=== PATIENT | female | born 1940 | race Caucasian/White ===

== ENCOUNTER 2022-06-08 05:56 | Observation (INO) ==
--- NOTE | 2022-05-10 14:31 | PAT Medication Instructions ---
Medication Instructions Date of Service May 10, 2022 Home Medications amlodipine 5 mg tablet 5 mg PO QAM apixaban 5 mg tablet (Eliquis) 5 mg PO BID aspirin 81 mg tablet,delayed release (Adult Low Dose Aspirin) 81 mg PO HS esomeprazole magnesium 20 mg capsule,delayed release (Nexium) 20 mg PO QAM levothyroxine 25 mcg capsule 25 mcg PO QAM losartan 50 mg tablet 50 mg PO QAM multivitamin 1 tab PO QAM omega 8-xia-vvy-fish oil 1,000 mg (120 mg-180 mg) capsule (Fish Oil) 1 cap PO BID rosuvastatin 5 mg tablet (Crestor) 5 mg PO HS solifenacin 10 mg tablet (Vesicare) 10 mg PO QAM alendronate 70 mg tablet (Fosamax) 70 mg PO WK buspirone 5 mg tablet 5 mg PO BID PRN anxiety sotalol 80 mg tablet 40 mg PO BID Continue as directed alendronate 70 mg tablet (Fosamax) 70 mg PO WK (but do not take morning of surgery) ASK your prescriber and surgeon apixaban 5 mg tablet (Eliquis) 5 mg PO BID (in order for spinal anesthesia, Apixaban/Eliquis needs to be stopped 72 hours/3 days before surgery. Please check if okay with doctor that prescribes this to you) STOP taking 2 weeks before surgery (or as soon as possible if surgery is within 2 weeks) omega 7-wlq-hgy-fish oil 1,000 mg (120 mg-180 mg) capsule (Fish Oil) 1 cap PO BID DO NOT take the morning of surgery losartan 50 mg tablet 50 mg PO QAM multivitamin 1 tab PO QAM solifenacin 10 mg tablet (Vesicare) 10 mg PO QAM Take morning of surgery With a small sip of water, OTHERWISE NOTHING TO EAT OR DRINK AFTER MIDNIGHT: amlodipine 5 mg tablet 5 mg PO QAM esomeprazole magnesium 20 mg capsule,delayed release (Nexium) 20 mg PO QAM levothyroxine 25 mcg capsule 25 mcg PO QAM buspirone 5 mg tablet 5 mg PO BID PRN anxiety (if needed) sotalol 80 mg tablet 40 mg PO BID Take evening before surgery aspirin 81 mg tablet,delayed release (Adult Low Dose Aspirin) 81 mg PO HS (continue as normal unless told otherwise by surgeon) rosuvastatin 5 mg tablet (Crestor) 5 mg PO HS buspirone 5 mg tablet 5 mg PO BID PRN anxiety (if needed) sotalol 80 mg tablet 40 mg PO BID Other Notes If you have any questions please call us at [phone] or [phone] or [phone] or [phone]
--- NOTE | 2022-05-13 12:57 | Anesthesiology Consultation ---
Date of Service May 13, 2022 Assessment & Plan (1) Encounter for pre-operative examination: - Case discussed with Dr. Wilson who advised patient to have cardiology pre-op evaluation and updated echocardiogram. Form completed, awaiting cardiology clearance. - bolus order pending cardio pre-op eval and updated echo. - check BSG am DOS. - anticoagulation instructions: in order for spinal or epidural anesthesia, Eliquis needs to be stopped 72 hours/3 days before surgery. Pt and daughter advised to contact prescriber if acceptable interval, they will notify office if not acceptable per cardiology to then undergo general anesthesia. - left upper arm restriction. - COVID screening: Per assessment on 05/13/2022: Travel screen negative, no known COVID-19 positive contacts or current COVID-19 related symptoms in past 2 weeks. Pt vaccinated. Surgeon arranging preop COVID testing, scheduled 06/04/2022. Awaiting results. Chart Review Chart Review: Pending: Refer to Additional Notes / Consult section and Patient seen in Pre Admission Testing Teaching & Discussion Pre-Anesthesia Teaching/Discussion Notes: Instructed NPO after midnight before surgery, except medications with 15 cc of water. Medication instructions provided according to the PAT guidelines. History Surgery Operation Date: 06/08/22 07:00 Proposed Procedures p Left Total Knee Arthroplasty - Tj Juan, Height/Weight Height: 5 ft 4 in Weight: 91.2 kg Allergies Allergy/AdvReac Type Severity Reaction Status Date / Time No Known Allergies Allergy Verified 05/10/22 10:47 Medications Home Medications Medication Instructions Recorded Confirmed Last Taken amlodipine 5 mg tablet 5 mg PO QAM 03/31/22 05/10/22 Unknown apixaban 5 mg tablet (Eliquis) 5 mg PO BID 03/31/22 05/10/22 Unknown aspirin 81 mg tablet,delayed 81 mg PO HS 03/31/22 05/10/22 Unknown release (Adult Low Dose Aspirin) esomeprazole magnesium 20 mg 20 mg PO QAM 03/31/22 05/10/22 Unknown capsule,delayed release (Nexium) levothyroxine 25 mcg capsule 25 mcg PO QAM 03/31/22 05/10/22 Unknown losartan 50 mg tablet 50 mg PO BID 03/31/22 05/13/22 Unknown multivitamin 1 tab PO QAM 03/31/22 05/10/22 Unknown omega 5-wix-cmw-fish oil 1,000 mg 1 cap PO BID 03/31/22 05/10/22 Unknown (120 mg-180 mg) capsule (Fish Oil) rosuvastatin 5 mg tablet (Crestor) 5 mg PO HS 03/31/22 05/10/22 Unknown solifenacin 10 mg tablet (Vesicare) 10 mg PO QAM 03/31/22 05/10/22 Unknown alendronate 70 mg tablet (Fosamax) 70 mg PO WK 05/10/22 05/10/22 Unknown buspirone 5 mg tablet 5 mg PO BID PRN anxiety 05/10/22 05/10/22 Unknown sotalol 80 mg tablet 40 mg PO BID 05/10/22 05/10/22 Unknown furosemide 20 mg PO PRN Edema 05/13/22 Unknown Past Medical History Medical History (Updated 05/13/22 @ 15:50 by Corrine Ureña PA-C) A-fib hx cardioversion - currently managed with medication and eliquis. follows with Dr Fierro ([facility]/[place]) Anxiety occasionally Breast cancer (~2001) left breast cancer (lumpectomy) CAD (coronary artery disease) s/p CABG x 1, 2 Cx stents (2009, 2012) with residual disease; per 2012 cath: left main normal. LAD: mid 100% occlusion, diagonal branch 40%, WALKER graft to LAD patent. Cx proximal 85%, mid 10% and stenting site patent-stent placed to Cx during cath. RCA: mid long 95% and distal 100%. CKD (chronic kidney disease), stage III GERD (gastroesophageal reflux disease) controlled, stable per pt High cholesterol History of blood transfusion 2001 History of cardioversion ~ at [facility]. Hypothyroid Labile hypertension occasionally symptomatic with hypertension experiencing severe MURILLO/lightheadedness, other times hypotensive per daughter-diastolic at times below 50 Limb alert care status pt states has had BP/IVs in LUE since L breast surgery but has chronic swelling in that arm Mitral valve prolapse pt unsure Myocardial Infarction 11/2001 treated with open heart surgery [place] anticoagulant therapy Peripheral arterial disease s/p stent placement Peripheral edema suspected LUE lymphedema per pt and daughter, chronic peripheral upper and lower extremity edema on prn diuretic therapy; denies change or worsening this week Prediabetes Patient denies h/o stroke, seizures, heart failure, or blood clots. Exercise / Class Metabolic Activity III < 4 Walking/Shop/Light housework (denies CP or SOB with 1 FOS) Past Family History Family History Other Heart disease No family history of adverse response to anesthesia Past Surgical History Surgical History (Updated 05/13/22 @ 13:44 by Corrine Ureña PA-C) History of cardiac cath ~15-20 years ago History of colonoscopy History of coronary artery bypass graft x 1 History of right-sided carotid endarterectomy History of surgical removal of left nipple Hx of heart artery stent (~2003) (between 15 and 20 years ago) total x2 stents at [facility] Hx of lumpectomy left Past Anesthesia History No Hx of Anesthesia Complications and No Family Hx of Anesthesia Complications History of PONV No Hx of PONV and No Hx of Motion Sickness Social History Smoking Status: Former smoker Do You Dip or Chew Tobacco: No Smoking End Date: 2001 Hx Alcohol Use: Yes Alcohol type: wine alcohol intake frequency: holidays/special occasions only Hx Substance Use: No substance use type: does not use Review of Systems Snoring, denies witnessed apneas. Occasional dizziness/lightheadedness when hypertensive. Denies syncope. Patient denies chest pain, shortness of breath, dyspnea on exertion, fever, chills, cough, wheezing, or palpitations. Physical Exam Vital Signs Vitals BP 145/70 P 55 TEMP 98.7 SP02 96% on RA RESP 17 Physical Full cervical extension range of motion without pain TMD 3.5 finger breadths Mallampati Score 2 Dentition: intact, several caps/crowns-none in front; denies chipped or loose teeth, implants or bridges Lungs: normal respiratory effort. Clear throughout to auscultation, no adventitious breath sounds Cardiac: regular rate and rhythm, 4/6 systolic murmur noted Carotid arteries: negative bruit bilat Lab Results Anesthesia Preop Results Results Anesthesia Widget: WBC 7.71 K/ul (4.8-10.8) 05/13/22 Hgb 11.6 g/dl (12.0-16.0) L 05/13/22 Hct 35.6 % (34.1-44.9) 05/13/22 Plt 314 K/uL (130-400) 05/13/22 Na 139 mmol/L (136-145) 05/13/22 K 4.6 mmol/L (3.5-5.1) 05/13/22 Cl 108 mmol/L (98-107) H 05/13/22 CO2 24 mmol/L (21-32) 05/13/22 BUN 35 mg/dl (6-23) H 05/13/22 Creat 1.15 mg/dl (0.6-1.2) 05/13/22 Glucose Level 122 mg/dl (70-99(Fasting)) H 05/13/22 PT 11.0 Seconds (9.0-12.0) 05/13/22 PTT 27.5 Seconds (21.0-31.0) 05/13/22 INR 1.0 (0.9-1.1) 05/13/22 Blood Type A Positive 05/13/22 Antibody Screen NEGATIVE 05/13/22 Testing Electrocardiogram Date: 05/13/22 Sinus rhythm with 1st degree AV block, rate 62 bpm Poor R wave progression, consider anterior NE vs lead placement vs LVH Chest X-Ray Date: 05/13/22 Left axillary surgical clips are noted. There are median sternotomy wires and mediastinal surgical clips. There is moderate cardiomegaly without evidence for pulmonary edema. No consolidation to suggest pneumonia. There is no pneumothorax or pleural effusion. IMPRESSION: No acute cardiopulmonary findings. Cardiomegaly. Echocardiogram Date: 02/25/20 EF 65% Mildly dilated LA Mild aortic stenosis Mild aortic insufficiency Mild cLVH Stress Test Date: 01/17/19 normal myocardial perfusion images without evidence for pharmacologically induced ischemia normal LV wall motion and thickening EF 69%
--- NOTE | 2022-06-02 14:49 | Communication Note ---
Date of Service: June 02, 2022 - Pt's daughter contacted office with questions regarding echocardiogram, neuraxial anesthesia vs GA. This was discussed in detail including further asses sment of aortic valve stenosis. Cardiology office was also contacted and advised next available echocardiogram scheduling is in July. [facility] requesting patient have appt, I also contacted their clinic prior to appt to notify echocardiogram order was the requested evaluation. Pt's daughter denied concerns with echocardiogram being obtained prior to surgery. Cardiology advised would send information to [facility] for earlier scheduling however prior authorization had not yet been initiated and pt's daughter planned to keep appointment with [facility] PCP today 06/02/22 to pursue echo order through their office. Pt's daughters Isamar and Bere assisting pt and once echo report is completed this will be reviewed and copy forwarded to cardiology. Echocardiogram ordered by [facility] PCP at today's appt.
[2022-06-08] MEDS ORDERED: ceFAZolin 2000MG 2,000 MG/15 ML SYR IV SCH (06:00)
[2022-06-08] MEDS ORDERED: GABAPENTIN 300 MG CAP PO SCH (06:00)
[2022-06-08] MEDS ORDERED: Ketorolac (*for OR use only*) 30 MG, dexAMETHasone 4 MG, KETAMINE HCL (**OR use only) 1... INFIL SCH (06:00)
[2022-06-08] MEDS ORDERED: TRANEXAMIC ACID 1,000 MG **IV Intra-op IV SCH (06:00)
[2022-06-08] MEDS ORDERED: LR 15ML/HR IV SCH (06:00)
[2022-06-08] MEDS ORDERED: dexAMETHasone 4 MG TAB PO SCH (06:00)
[2022-06-08] MEDS ORDERED: ACETAMINOPHEN 500 MG TAB PO SCH (06:00)
[2022-06-08] MEDS ORDERED: TRANEXAMIC ACID 1,000 MG **IV Pre-op IV SCH (06:00)
[2022-06-08] MEDS ORDERED: LR 60ML/HR IV SCH (06:00)
[2022-06-08] MEDS ORDERED: ROPIVACAINE 0.5% 5 MG/ML 30 ML VIAL ONE (06:27)
[2022-06-08] MEDS ORDERED: BUPIVACAINE 0.5 % 5 MG/1 ML PF 10ML VIAL ONE (06:27)
--- NOTE | 2022-06-08 06:44 | History & Physical Report ---
Date of Service June 08, 2022 Assessment & Plan (1) Osteoarthritis of left knee: We will proceed with a left total knee arthroplasty. Postoperatively she will be started on Eliquis for DVT prophylaxis and kept overnight in the hospital for postoperative medical management. She she plans to have the hospital set up home health for discharge. History of Present Illness Chief Complaint: Osteoarthritis of the left knee. Primary Care Provider: Ynes Ricardo DO Zavala is a pleasant 81-year-old female who has been dealing with chronic bilateral knee pain. She has severe valgus deformity. She uses a walker because of her knees. She has been dealing with pain for years. She underwent an open heart surgery in 2001. She was told that she could not have knee replacement surgeries. She lived with the pain for 20 years. Her heart has been stable. She is on Eliquis and sotalol. She is starting to become less and less independent because of her knees. Recent x-rays have shown advanced osteoarthritis of her knee. After failing conservative treatment, she has elected proceed with a left total knee arthroplasty. . Allergies Allergy/AdvReac Type Severity Reaction Status Date / Time No Known Allergies Allergy Verified 06/08/22 06:13 Home Medications Medication Instructions Recorded Confirmed Type amlodipine 5 mg tablet 5 mg PO QAM 03/31/22 06/08/22 History apixaban 5 mg tablet (Eliquis) 5 mg PO BID 03/31/22 06/08/22 History aspirin 81 mg tablet,delayed 81 mg PO HS 03/31/22 06/08/22 History release (Adult Low Dose Aspirin) esomeprazole magnesium 20 mg 20 mg PO QAM 03/31/22 06/08/22 History capsule,delayed release (Nexium) levothyroxine 25 mcg capsule 25 mcg PO QAM 03/31/22 06/08/22 History losartan 50 mg tablet 50 mg PO BID 03/31/22 06/08/22 History multivitamin 1 tab PO QAM 03/31/22 06/08/22 History omega 4-zrh-mfg-fish oil 1,000 mg 1 cap PO BID 03/31/22 06/08/22 History (120 mg-180 mg) capsule (Fish Oil) rosuvastatin 5 mg tablet (Crestor) 5 mg PO HS 03/31/22 06/08/22 History solifenacin 10 mg tablet (Vesicare) 10 mg PO QAM 03/31/22 06/08/22 History alendronate 70 mg tablet (Fosamax) 70 mg PO WK 05/10/22 06/08/22 History buspirone 5 mg tablet 5 mg PO BID PRN anxiety 05/10/22 06/08/22 History sotalol 80 mg tablet 40 mg PO BID 05/10/22 06/08/22 History furosemide 20 mg PO DAILY PRN Edema 05/13/22 06/08/22 History Past Med/Surg History Medical History A-fib hx cardioversion - currently managed with medication and eliquis. follows with Dr Fierro ([facility]/[place]) Anxiety occasionally Breast cancer (~2001) left breast cancer (lumpectomy) CAD (coronary artery disease) s/p CABG x 1, 2 Cx stents (2009, 2012) with residual disease; per 2012 cath: left main normal. LAD: mid 100% occlusion, diagonal branch 40%, WALKER graft to LAD patent. Cx proximal 85%, mid 10% and stenting site patent-stent placed to Cx during cath. RCA: mid long 95% and distal 100%. Carotid artery stenosis s/p right carotid endarterectomy CKD (chronic kidney disease), stage III GERD (gastroesophageal reflux disease) controlled, stable per pt High cholesterol History of blood transfusion 2001 History of cardioversion ~ at [facility]. Hypothyroid Labile hypertension occasionally symptomatic with hypertension experiencing severe MURILLO/lightheadedness, other times hypotensive per daughter-diastolic at times below 50 Limb alert care status pt states has had BP/IVs in LUE since L breast surgery but has chronic swell ing in that arm Mitral valve prolapse pt unsure Myocardial Infarction 11/2001 treated with open heart surgery [place] anticoagulant therapy Peripheral arterial disease s/p stent placement Peripheral edema suspected LUE lymphedema per pt and daughter, chronic peripheral upper and lower extremity edema on prn diuretic therapy; denies change or worsening this week Prediabetes Surgical History History of cardiac cath ~15-20 years ago History of colonoscopy History of coronary artery bypass graft x 1 History of right-sided carotid endarterectomy History of surgical removal of left nipple Hx of heart artery stent (~2003) (between 15 and 20 years ago) total x2 stents at [facility] Hx of lumpectomy left Family History Other Heart disease No family history of adverse response to anesthesia Social History Smoking Status: Former smoker Smoking End Date: 2001; Second Hand Exposure: No; Do You Dip or Chew Tobacco: No; Tobacco Cessation Education Requested by Patient: No Hx Alcohol Use: Yes Alcohol type: wine Hx Substance Use: No Preferred Language: Sami Communication Ability: Effective Automation Qtp Tester Required: No Beliefs That Will Affect Care: None marital status: / Current Living Situation: Alone Other Information That Helps Us Care for You: No Feels Safe at Home: Yes Safety Concerns: Feels Safe At This Time Assistive Devices: Brace/Splint/Immobilizer, Glasses and Walker Review of Systems All systems reviewed & are unremarkable except as noted in HPI & below. Physical Exam On physical examination of the left knee, she does have a slight valgus deformity. She has range of motion from 5 to 115 degrees. She has no gross instability. She has pain over the distal femoral condyles.. Constitutional WD/WN, vitals as above Eyes PERRL, conjunctivae normal, anicteric sclerae ENMT external ear and nose normal, oropharynx normal Neck trachea midline, no thyromegaly Respiratory normal respiratory effort, lungs clear to auscultation Cardiovascular RRR, no murmur, no edema Gastrointestinal (Abdomen) normal bowel sounds, soft, nontender, no hepatosplenomegaly Skin no rashes, warm and dry Psychiatric A+Ox3, euthymic affect Results & Data Results & Data Laboratory Results . Diagnostic Findings X-rays of the left knee show advanced osteoarthritis with joint space narrowing, osteophyte formation, and uyon-[id number] articulation. PG Care Time/CCT Total # of Minutes Spent Total Time Spent with Patient: Total time spent is greater than 50% in coordination of care (as documented) at patient's floor/unit and/or counseling patient: Coding Level of Care Code None Diagnoses Osteoarthritis of left knee M17.12
[2022-06-08] MEDS ORDERED: ePHEDrine sulfate 50 MG/ML SYR ONE (07:08)
[2022-06-08] MEDS ORDERED: PHENYLEPHRINE 100MCG/ML 5ML SYR ONE (07:08)
[2022-06-08] MEDS ORDERED: PROPOFOL IV EMULSION 10 MG/ML 20 ML VIAL IV ONE (07:08)
[2022-06-08] MEDS ORDERED: LIDOCAINE 2% MPF LOCAL 5 ML VIAL INFIL ONE (07:08)
[2022-06-08] MEDS ORDERED: MIDAZOLAM HCL 1 MG/ML 2ML VIAL ONE (07:08)
[2022-06-08] MEDS ORDERED: fentaNYL citrate 100 MCG/2 ML VIAL ONE (07:09)
[2022-06-08] MEDS ORDERED: ATROPINE SULFATE 0.1 MG/ML 10ML SYR IV PRN (07:39)
[2022-06-08] MEDS ORDERED: fentaNYL citrate 100 MCG/2 ML VIAL IV PRN (07:39)
[2022-06-08] MEDS ORDERED: ONDANSETRON INJ 2 MG/ML 2 ML VIAL IV PRN ×2 (07:39→11:06)
[2022-06-08] MEDS ORDERED: ePHEDrine sulfate 50 MG/ML AMP IV PRN (07:39)
[2022-06-08] MEDS ORDERED: ORTHO JOINT ANESTHETIC ONE (07:49)
[2022-06-08] MEDS ORDERED: DEXAMETHASONE SOD INJ 4 MG/ML VIAL ONE (08:44)
[2022-06-08] MEDS ORDERED: ONDANSETRON INJ 2 MG/ML 2 ML VIAL ONE (08:44)
[2022-06-08] MEDS ORDERED: HYDROmorphone INJ 2 MG/ML SYR/VIAL ONE (08:50)
[2022-06-08] MEDS ORDERED: METOCLOPRAMIDE HCL INJ 5 MG/ML 2 ML VIAL IV PRN (11:06)
[2022-06-08] MEDS ORDERED: NALOXONE HCL 0.4 MG/1 ML VIAL/CARP IV PRN (11:06)
[2022-06-08] MEDS ORDERED: oxyCODONE HCL IR 5 MG TAB (IMMEDIATE RELEASE) PO PRN (11:06)
[2022-06-08] MEDS ORDERED: busPIRone 5 MG TAB PO PRN (11:06)
[2022-06-08] MEDS ORDERED: bisacodyL 10 MG SUPP PR PRN (11:06)
[2022-06-08] MEDS ORDERED: MAGNESIUM HYDROXIDE SUSP 30 ML UDC PO PRN (11:06)
[2022-06-08] MEDS ORDERED: HYDROmorphone INJ 0.5 MG/0.5 ML SYR IV PRN (11:06)
[2022-06-08] MEDS ORDERED: FUROSEMIDE 20 MG TAB PO PRN (11:50)
[2022-06-08] MEDS: SODIUM CHLORIDE 0.9% 1000ML 1,000 ML IV SCH ×2 (12:37→20:37)
[2022-06-08] MEDS: KETOROLAC TROMETHAMINE 15 MG/ML VIAL IV SCH ×2 (14:00→20:32)
--- NOTE | 2022-06-08 14:09 | Anesthesiology Progress Note ---
Date of Service June 08, 2022 Anesthesia Post Procedure Vital Signs Vital Signs: Temp Pulse Pulse Resp BP Pulse Ox O2 Del Method 06/08/22 13:36 36.5 C 63 16 111/71 95 Nasal Cannula 06/08/22 12:44 36.6 C 72 18 146/80 H 97 Nasal Cannula 06/08/22 12:15 36.3 C L 72 16 147/82 H 97 Nasal Cannula 06/08/22 11:55 67 13 139/82 93 Nasal Cannula 06/08/22 11:25 67 12 148/87 H 92 Nasal Cannula 06/08/22 11:05 79 16 144/91 H 97 Nasal Cannula 06/08/22 10:50 36.3 C L 66 12 154/68 H 96 Nasal Cannula 06/08/22 10:40 68 15 146/78 H 92 Nasal Cannula 06/08/22 10:30 75 16 133/67 97 Oxymask 06/08/22 10:20 71 14 110/52 L 92 Oxymask 06/08/22 10:10 71 13 114/53 L 93 Oxymask 06/08/22 10:04 36.7 C 70 20 106/48 L 93 Oxymask 06/08/22 06:29 36.7 C 65 18 166/62 H 96 Room Air O2 Flow Rate 06/08/22 13:36 2 06/08/22 12:44 2 06/08/22 12:15 4 06/08/22 11:55 4 06/08/22 11:25 4 06/08/22 11:05 4 06/08/22 10:50 4 06/08/22 10:40 4 06/08/22 10:30 6 06/08/22 10:20 10 06/08/22 10:10 10 06/08/22 10:04 10 06/08/22 06:29 Transfer of Care Handoff Completed per policy Notes Mental Status: alert / awake / arousable and participated in evaluation Patient Amnestic to Procedure: Yes Nausea / Vomiting: adequately controlled Pain: adequately controlled Airway Patency, RR, SpO2: stable & adequate BP & HR: stable & adequate Hydration State: stable & adequate Anesthetic Complications: no major complications apparent and Pt Satisfied with anesthetic care
[2022-06-08] MEDS: ACETAMINOPHEN 500 MG TAB PO SCH ×2 (15:00→20:32)
--- NOTE | 2022-06-08 15:14 | XRay Report ---
LEFT KNEE 2 VIEWS History: Left total knee arthroplasty. Degenerative arthritis. Postop. FINDINGS: The patient is status post a left total knee arthroplasty. The hardware is intact. No fract ure or dislocation. Skin ailyn are in place. IMPRESSION: Left total knee arthroplasty. No evidence for hardware complication. ACT 112: Negative or not required by law. Electronically signed by: Joaquin Santiago M.D. 06/08/2022 3:13 PM
[2022-06-08] MEDS: ASPIRIN 81 MG ECTAB PO SCH (20:30)
[2022-06-08] MEDS: LOSARTAN POTASSIUM 50 MG TAB PO SCH (20:30)
[2022-06-08] MEDS: SOTALOL HCL 80 MG TAB PO SCH (20:30)
[2022-06-08] MEDS: SENNA 8.6 MG TAB PO SCH (20:31)
[2022-06-08] MEDS: ROSUVASTATIN CALCIUM 5 MG TAB PO SCH (20:31)
[2022-06-08] MEDS: DOCUSATE SODIUM 100 MG CAP PO SCH (20:36)
[2022-06-09] MEDS: KETOROLAC TROMETHAMINE 15 MG/ML VIAL IV SCH ×4 (01:54→19:33)
[2022-06-09] MEDS: LEVOTHYROXINE SODIUM 25 MCG TABLET PO SCH (05:58)
[2022-06-09] MEDS: ACETAMINOPHEN 500 MG TAB PO SCH ×3 (05:58→21:48)
--- NOTE | 2022-06-09 06:58 | Orthopedic Progress Note ---
Date of Service June 09, 2022 Assessment & Plan (1) Status post left knee replacement: Overall she is doing very well. She denies any much pain in the left knee. She will be seen by physical therapy today for ambulation and range of motion exercises. She is on Eliquis for DVT prophylaxis. She can be discharged to home later today. She will follow-up with orthopedics in 2 weeks. Subjective Sally was seen and examined at bedside this morning. Overall she is doing fairly well. She denies any much pain in the left knee. She has been up and ambulating to the bathroom. She has no complaints.. Review of Systems All systems reviewed & are unremarkable except as noted in HPI & below. Physical Exam On physical examination of the left knee, the dressing is clean and dry. Her leg is out in full extension. She has active dorsiflexion plantarflexion of her left ankle.. Results & Data Results & Data Laboratory Results . Diagnostic Findings Postoperative x-rays of the left knee show the prosthesis to be in anatomic alignment without any evidence of fracture, desiccation, or loosening. PG Care Time/CCT Total # of Minutes Spent Total Time Spent with Patient: Total time spent is greater than 50% in coordination of care (as documented) at patient's floor/unit and/or counseling patient: Coding Level of Care Code 69151 Post Operative Follow-Up Diagnoses Status post left knee replacement Z96.652
--- NOTE | 2022-06-09 06:59 | Discharge Summary ---
Date of Service June 09, 2022 Admission HPI (Per Admitting) Sally is a pleasant 81-year-old female who has been dealing with chronic bilateral knee pain. She has severe valgus deformity. She uses a walker because of her knees. She has been dealing with pain for years. She underwent an open heart surgery in 2001. She was told that she could not have knee replacement surgeries. She lived with the pain for 20 years. Her heart has been stable. She is on Eliquis and sotalol. She is starting to become less and less independent because of her knees. Recent x-rays have shown advanced osteoarthritis of her knee. After failing conservative treatment, she has elected proceed with a left total knee arthroplasty. . Admission Exam (Per Admitting) On physical examination of the left knee, she does have a slight valgus deformity. She has range of motion from 5 to 115 degrees. She has no gross instability. She has pain over the distal femoral condyles.. Principal Diagnosis Same as "Discharge Diagnosis" noted below under Discharge Instructions. Discharge Exam On physical examination of the left knee, the dressing is clean and dry. Her leg is out in full extension. She has active dorsiflexion plantarflexion of her left ankle.. Discharge Data Procedures Performed Operation Date: 06/08/22 08:10 Actual Procedures p Left Total Knee Arthroplasty(Left) - Tj Juan DO Ordered Studies 06/08/22 05:00 US - OR guided needle placemen Routine Hospital Course (1) Status post left knee replacement: On June 08, 2022 Sally arrived at [facility] and underwent a left knee replacement without complication. She had a general anesthetic. Postoperatively she was started on Eliquis for DVT prophylaxis and transferred to the general orthopedic floors. Her hospital course was uneventful. On postop day #1, her vital signs were stable and her pain was well controlled. She was able to participate well with physical therapy doing ambulation and range of motion exercises. She was then discharged home. She will follow-up with orthopedics in 2 weeks. PG Care Time/CCT Total # of Minutes Spent Total Time Spent with Patient: Total time spent is greater than 50% in coordination of care (as documented) at patient's floor/unit and/or counseling patient: Discharge Plan Discharge Items Patient Disposition: Home - Home Health Services Reason For Visit: Left Knee Osteoarthritis Discharge Diagnosis: Left knee replacement Activity: Per Instructions section Non-emergency contact: Surgeon Call non-emergency contact if: your wound has increased redness and your wound has increased drainage Follow-up/Referrals: Ynes Ricardo DO [Primary Care Provider] - Diet: Regular Addtl Attending Provider Instructions: Activity and Therapy Recommendations: * If you are using [facility] then therapy will be provided at your home until they feel you have accomplished all of your goals. * If you are using [facility] then Physical Therapy will be provided until they feel you are ready to start Outpatient Physical Therapy. * If you are not using home therapy then Outpatient Physical Therapy should start about 3-5 days from your day of surgery. Therapy will last about 6-10 weeks * It is important not to put a pillow under your knee when you are relaxing or sleeping. It is just as important to make sure you are getting your knee perfectly straight as it is to regain your knee bend. * You were shown a series of exercises in the hospital. Do these exercises three times each day including the exercises you were shown in physical therapy. * Get up and walk several times each day. For the first four weeks, try not to stand or walk for more than one hour at a time. If you do stand or walk for more than one hour, you will not hurt anything, but your leg will likely swell. * As you feel comfortable, you may change from the walker or crutches to a cane and then to independent walking. Medications: * Narcotic You will likely be sent home from the hospital with a prescription for the narcotic pain medication that worked best throughout your stay. * Aspirin Most patients will be required to take Aspirin 81mg twice a day for 6 weeks after surgery. This is obtained [id number] and a prescription is not necessary. * Other medications may be prescribed for specific circumstances. If you have any questions, please call the office at . * Resume previous home medications unless otherwise instructed TEDs/Elastic Stockings: The white elastic stockings help limit swelling and prevent blood clots from forming in your legs.~ The more you wear them, the more they work. Wear them for six weeks. Dressing Care: The dressing can be changed after physical therapy on postop day #1. Daily dry dressing changes for a few days, especially if the incision is still draining some. If the incision is not draining then you may leave the ailyn open to air. If there is a little bit of drainage or if the ailyn are getting stuck on your clothing then cover the incision with a dry dressing. The ailyn will be removed at your 2 week follow-up appointment. Showering: You may shower 5 days from the day of surgery as long as the incision is no longer draining. You may shower with the ailyn exposed. Let soapy water run over the ailyn and pat them dry. Do not scrub or soak the incision. Things To Watch For: * Drainage from the incision site that occurs more than one week after your surgery. * Increased redness at the incision site. * Fever above 102 degrees Fahrenheit. * Unusual chest pain or shortness of breath. * Call [facility] at with any of the above problems Follow-Up Visit: Follow-up with Dr. Juan's PA (Tj Berger) 2-3 weeks after your day of surg yanet. He will remove your ailyn and answer any questions. If you have any additional questions or concerns, Dr Juan is usually in the office at the same time and will be available An appointment was probably scheduled when you signed-up for surgery in the office. If you have any questions call Office Instructions: More detailed instructions as well as Frequently Asked Questions were provided in a folder by our office when you signed-up for surgery. Please review these instructions when you get home. If you have any further questions or concerns, please feel free to call the office at [phone] Pending Studies at Discharge: No Stand-Alone Forms: My [facility] ScreenTag [facility], Smoking Cessation Medications and DC Order Prescriptions: New oxycodone-acetaminophen 5-325 mg tablet 1 tab PO Q6H PRN (Reason: pain) Qty: 30 0RF Continued Eliquis 5 mg tablet 5 mg PO BID losartan 50 mg tablet 50 mg PO BID levothyroxine 25 mcg capsule 25 mcg PO QAM amlodipine 5 mg tablet 5 mg PO QAM rosuvastatin [Crestor] 5 mg tablet 5 mg PO HS esomeprazole magnesium [Nexium] 20 mg capsule,delayed release(DR/EC) 20 mg PO QAM solifenacin [Vesicare] 10 mg tablet 10 mg PO QAM aspirin [Adult Low Dose Aspirin] 81 mg tablet,delayed release (DR/EC) 81 mg PO HS omega 4-rln-muw-fish oil [Fish Oil] 1,000 mg (120 mg-180 mg) capsule 1 cap PO BID multivitamin Tablet 1 tab PO QAM sotalol 80 mg Tablet 40 mg PO BID alendronate [Fosamax] 70 mg Tablet 70 mg PO WK buspirone 5 mg Tablet 5 mg PO BID PRN (Reason: anxiety) furosemide 20 mg PO DAILY PRN (Reason: Edema) Discharge Orders: Discharge Order (Routine); Ordered 06/09/22 Ordered By: Tj Juan Admission Data Admit Date/Time: 06/08/22 10:03 Attending Provider: Tj Juan Admit Provider: Tj Juan Primary Care Provider: Ynes Ricardo
[2022-06-09] MEDS ORDERED: dexAMETHasone 4 MG TAB PO SCH (08:00)
[2022-06-09] MEDS: amLODIPine BESYLATE 5 MG TAB PO SCH (08:36)
[2022-06-09] MEDS: MULTIVITAMIN TAB PO SCH (08:36)
[2022-06-09] MEDS: APIXABAN 5 MG TABLET PO SCH ×2 (08:36→19:33)
[2022-06-09] MEDS: SOTALOL HCL 80 MG TAB PO SCH ×2 (08:36→19:33)
[2022-06-09] MEDS: PANTOprazole 40 MG TAB PO SCH (08:36)
[2022-06-09] MEDS: LOSARTAN POTASSIUM 50 MG TAB PO SCH ×2 (08:37→19:34)
[2022-06-09] MEDS: DOCUSATE SODIUM 100 MG CAP PO SCH ×2 (08:40→19:34)
[2022-06-09] MEDS: ROSUVASTATIN CALCIUM 5 MG TAB PO SCH (19:33)
[2022-06-09] MEDS: SENNA 8.6 MG TAB PO SCH (19:33)
[2022-06-09] MEDS: ASPIRIN 81 MG ECTAB PO SCH (19:33)
[2022-06-10] MEDS: KETOROLAC TROMETHAMINE 15 MG/ML VIAL IV SCH ×2 (04:05→09:14)
[2022-06-10] MEDS: LEVOTHYROXINE SODIUM 25 MCG TABLET PO SCH (06:01)
[2022-06-10] MEDS: ACETAMINOPHEN 500 MG TAB PO SCH ×2 (06:01→14:09)
--- NOTE | 2022-06-10 07:36 | Orthopedic Progress Note ---
Date of Service June 10, 2022 Assessment & Plan (1) Status post left knee replacement: Overall she is doing fairly well. She is not in too much pain in the left knee. She is on Eliquis for DVT prophylaxis. She will be seen by physical therapy today for ambulation and range of motion exercises. She can be discharged to rehab later today. She will follow-up with orthopedics in 2 weeks. Subjective Sally was seen and examined at bedside this morning. Overall she is doing fairly well. She is really not having much pain in the left knee. She was able to work well yesterday with physical therapy. She is little concerned about returning home so she is hoping to go to a rehab facility.. Review of Systems All systems reviewed & are unremarkable except as noted in HPI & below. Physical Exam On physical examination of the left knee, the dressing has been changed. There is a little bloody drainage on the inferior aspect of the dressing. She can extend her leg fully. She has active dorsiflexion plantarflexion of her left ankle.. Results & Data Results & Data Laboratory Results . Diagnostic Findings . PG Care Time/CCT Total # of Minutes Spent Total Time Spent with Patient: Total time spent is greater than 50% in coordination of care (as documented) at patient's floor/unit and/or counseling patient: Coding Level of Care Code 71072 Post Operative Follow-Up Diagnoses Status post left knee replacement Z96.652
[2022-06-10] MEDS: PANTOprazole 40 MG TAB PO SCH (08:21)
[2022-06-10] MEDS: SOTALOL HCL 80 MG TAB PO SCH (08:21)
[2022-06-10] MEDS: DOCUSATE SODIUM 100 MG CAP PO SCH (08:22)
[2022-06-10] MEDS: MULTIVITAMIN TAB PO SCH (08:22)
[2022-06-10] MEDS: amLODIPine BESYLATE 5 MG TAB PO SCH (08:22)
[2022-06-10] MEDS: APIXABAN 5 MG TABLET PO SCH (08:22)
[2022-06-10] MEDS: LOSARTAN POTASSIUM 50 MG TAB PO SCH (08:22)
[2022-06-12] MEDS ORDERED: ALENDRONATE SODIUM 70 MG TAB PO SCH (06:30)
--- NOTE | 2022-06-24 11:27 | Operative Report ---
PG Post Operative Report Pre & Post Diagnosis Operation Date: 06/08/22 08:10 Pre-Op Diagnosis: Left Knee Osteoarthritis Post-Op Diagnosis: Left Knee Osteoarthritis I identified the patient and participated in the time-out.: Yes Procedure Operation Date: 06/08/22 08:10 Actual Procedures p Left Total Knee Arthroplasty(Left) - Tj Juan DO Surgeon Tj Juan DO Nursing Agency Manager Tj Berger PA-C Estimated Blood Loss 20 Findings Consistent with Post-Op Diagnosis Specimens Left femoral and tibial bone Description of Procedure Implants used: I used a Jair Persona total knee arthroplasty system with a size 4 PS femur, D tibia with a 30 mm stem extension, 31 oval patella, and a size 12 CPS polyethylene bearing. All components were cemented in place with Biomet cement. Sally arrived [facility] for the above procedure. She was seen in the preoperative holding area and the operative extremity was identified and signed. She was given a preoperative antibiotic, TXA, a spinal anesthetic and an adductor nerve block. She was taken back to the operating room and laid on the table in supine position. She was given basic sedation. The operative knee was then prepped and draped in sterile fashion. A timeout was done, and the patient and the operative extremity was properly identified. A midline incision was made directly over the patella. Dissection was taken down to the extensor mechanism. A subvastus arthrotomy was used. The medial retinaculum was released and the fat pad was mostly excised. The knee was flexed and the ACL, PCL, and meniscus were removed. A drill was sent down the center of the femoral canal followed by an intramedullary bennett. Off that bennett a distal femoral cutting block was placed. 9 mm was resected off the distal femur at 5 of valgus. A posterior referencing AP sizing guide was then placed on the distal femur. The femur measured to be a size 4. 2 drill holes were placed in 3 of external rotation. A 4-in-1 cutting block was then impacted into place. Anterior, posterior, and chamfer cuts were then made. The proximal tibia was then exposed. An external tibial alignment guide was placed. A tibial cut guide was then anchored in place and the proximal tibia was then resected. The posterior aspect of the knee was then opened up and any additional meniscus fragments and osteophytes were removed. The tibia measured to be a size D. The tibial plate was then placed in the appropriate rotation and the tibia was drilled and punched. Trial components were then placed. I used a size 12 CPS polyethylene insert. The knee was brought through a full range of motion and felt to be stable. The peg holes for the femoral component were then drilled. The patella was then everted and 9 mm was resected off the posterior aspect of the patella. The patella measured to be a size 31 oval. 3 peg holes were then drilled. A trial patella was placed. The knee was once again brought through a full range of motion and felt to be stable. Trial components were then removed. The surrounding soft tissues were injected with 100 cc of an orthopedic pain control cocktail. All components were then cemented into place with Biomet cement. The final polyethylene insert was then snapped into place. Once cement was dry the tourniquet was deflated. Hemostasis was obtained. A dilute betadyne lavage was then done for 3 minutes. The joint was then irrigated with normal saline solution. The subvastus arthrotomy was then closed with #1 Vicryl suture. The skin was closed with 2-0 Vicryl, 3-0V lock suture, and ailyn. A soft compressive dressing was placed. She was then transferred to a hospital bed and taken to the postanesthesia care unit in stable condition. She tolerated the procedure well. Tj Berger PA-C, was present for the entire procedure. He was critical for patient positioning, prepping, draping, retraction exposure, wound closure and application of sterile dressing. I attest to the content of the Intraoperative Record and any orders documented therein. Any exceptions are noted below.
== END 2022-06-10 15:26 | disposition home health service (06) ==
LOC: ASU 05:56 → PACUINP 05:56 → 3N 12:15

== ENCOUNTER 2022-11-16 06:33 | Observation (INO) ==
--- NOTE | 2022-09-30 22:03 | PAT Medication Instructions ---
Medication Instructions Date of Service September 30, 2022 Home Medications amlodipine 5 mg tablet 5 mg PO QAM apixaban 5 mg tablet (Eliquis) 5 mg PO BID aspirin 81 mg tablet,delayed release (Adult Low Dose Aspirin) 81 mg PO HS esomeprazole magnesium 20 mg capsule,delayed release (Nexium) 20 mg PO QAM levothyroxine 25 mcg capsule 25 mcg PO QAM losartan 50 mg tablet 50 mg PO BID multivitamin 1 tab PO QAM omega 8-zco-ihk-fish oil 1,000 mg (120 mg-180 mg) capsule (Fish Oil) 1 cap PO BID rosuvastatin 5 mg tablet (Crestor) 5 mg PO HS solifenacin 10 mg tablet (Vesicare) 10 mg PO QAM alendronate 70 mg tablet (Fosamax) 70 mg PO Q7D buspirone 5 mg tablet 5 mg PO BID PRN anxiety sotalol 80 mg tablet 40 mg PO BID furosemide 20 mg tablet 20 mg PO DAILY PRN Edema Continue as directed alendronate 70 mg tablet (Fosamax) 70 mg PO Q7D ASK your prescriber and surgeon apixaban 5 mg tablet (Eliquis) 5 mg PO BID (in order for spinal anesthesia, Apixaban needs to be stopped 72 hours/3 days before surgery. Please check if okay with doctor that prescribes this to you) STOP taking 2 weeks before surgery (or as soon as possible if surgery is within 2 weeks) omega 9-gxw-tzd-fish oil 1,000 mg (120 mg-180 mg) capsule (Fish Oil) 1 cap PO BID DO NOT take the morning of surgery losartan 50 mg tablet 50 mg PO BID multivitamin 1 tab PO QAM solifenacin 10 mg tablet (Vesicare) 10 mg PO QAM furosemide 20 mg tablet 20 mg PO DAILY PRN Edema Take morning of surgery With a small sip of water, OTHERWISE NOTHING TO EAT OR DRINK AFTER MIDNIGHT: amlodipine 5 mg tablet 5 mg PO QAM esomeprazole magnesium 20 mg capsule,delayed release (Nexium) 20 mg PO QAM levothyroxine 25 mcg capsule 25 mcg PO QAM buspirone 5 mg tablet 5 mg PO BID PRN anxiety (if needed) sotalol 80 mg tablet 40 mg PO BID Take evening before surgery aspirin 81 mg tablet,delayed release (Adult Low Dose Aspirin) 81 mg PO HS (continue as normal unless told otherwise by surgeon) losartan 50 mg tablet 50 mg PO BID rosuvastatin 5 mg tablet (Crestor) 5 mg PO HS buspirone 5 mg tablet 5 mg PO BID PRN anxiety (if needed) sotalol 80 mg tablet 40 mg PO BID furosemide 20 mg tablet 20 mg PO DAILY PRN Edema (if needed) Other Notes If you have any questions please call us at [phone] or [phone] or [phone] or [phone]
--- NOTE | 2022-10-06 14:12 | Anesthesiology Consultation ---
Date of Service October 06, 2022 Assessment & Plan (1) Encounter for pre-operative examination: Chart Review Chart Review: Pending: Refer to Additional Notes / Consult section (pending response from PCP re: anemia and most recent routine cardio office visit ) and Patient seen in Pre Admission Testing - Please send note to PCP re: anemia- will await response - Will obtain most recent cardio office note (08/2022- routine cardio appt) -Pt is NOT an Outpatient Joint candidate due to PMH Per PAT appt on 10/06/22, patient denies any recent travel or large group activities. Pt is vaccinated for Covid. Will leave to surgeon's discretion if preop Covid testing needed. Educated on importance of using Covid precautions one week prior to surgery Left TKA 06/08/22= Done under GA with LMA #4.0. Sedated for PNB. Smooth induction, atraumatic LMA Teaching & Discussion Pre-Anesthesia Teaching/Discussion Notes: Instructed NPO after midnight before surgery,except medications with 15 cc of water. Medication instructions provided according to the PAT guidelines. History Surgery Operation Date: 11/16/22 10:55 Proposed Procedures p Right Total Knee Arthroplasty - Tj Juan, DO Height/Weight Height: 5 ft 4 in Weight: 87.6 kg Allergies Allergy/AdvReac Type Severity Reaction Status Date / Time No Known Allergies Allergy Verified 09/30/22 12:50 Medications Home Medications Medication Instructions Recorded Confirmed Last Taken amlodipine 5 mg tablet 5 mg PO QAM 03/31/22 09/30/22 06/08/22 04:30 apixaban 5 mg tablet (Eliquis) 5 mg PO BID 03/31/22 09/30/22 06/04/22 22:00 aspirin 81 mg tablet,delayed 81 mg PO HS 03/31/22 09/30/22 06/07/22 21:30 release (Adult Low Dose Aspirin) esomeprazole magnesium 20 mg 20 mg PO QAM 03/31/22 09/30/22 06/08/22 04:30 capsule,delayed release (Nexium) levothyroxine 25 mcg capsule 25 mcg PO QAM 03/31/22 09/30/22 06/08/22 04:30 losartan 50 mg tablet 50 mg PO BID 03/31/22 09/30/22 06/07/22 21:30 multivitamin 1 tab PO QAM 03/31/22 09/30/22 06/07/22 10:00 omega 0-ure-hhw-fish oil 1,000 mg 1 cap PO BID 03/31/22 09/30/22 05/25/22 (120 mg-180 mg) capsule (Fish Oil) rosuvastatin 5 mg tablet (Crestor) 5 mg PO HS 03/31/22 09/30/22 06/07/22 21:30 solifenacin 10 mg tablet (Vesicare) 10 mg PO QAM 03/31/22 09/30/22 06/07/22 10:00 alendronate 70 mg tablet (Fosamax) 70 mg PO Q7D 05/10/22 09/30/22 06/05/22 08:00 buspirone 5 mg tablet 5 mg PO BID PRN anxiety 05/10/22 09/30/22 Unknown sotalol 80 mg tablet 40 mg PO BID 05/10/22 09/30/22 06/08/22 04:30 furosemide 20 mg tablet 20 mg PO DAILY PRN Edema 09/30/22 09/30/22 Unknown Past Medical History Medical History (Updated 10/06/22 @ 15:26 by Sinai Avendano PA-C) A-fib Hx cardioversion - currently managed with medication and Eliquis. Follows with Dr Schaefer ([facility]) Anxiety occasionally Aortic stenosis Moderate per 06/03/22 ECHO Breast cancer (~2001) Left breast cancer (lumpectomy)- s/p XRT CAD (coronary artery disease) s/p CABG x 1 (2002) 2 Cx stents (2009, 2012) with residual disease; per 2012 cath: left main normal. LAD: mid 100% occlusion, diagonal branch 40%, WALKER graft to LAD p atent. Cx proximal 85%, mid 10% and stenting site patent-stent placed to Cx during cath. RCA: mid long 95% and distal 100%. Carotid artery stenosis S/p right carotid endarterectomy (2002) CKD (chronic kidney disease), stage III GERD (gastroesophageal reflux disease) controlled, stable per pt High cholesterol History of blood transfusion 2001- s/p CABG History of cardioversion ~ at [facility]. History of urinary incontinence Hypothyroid Labile hypertension Cccasionally symptomatic with hypertension experiencing severe MURILLO/lightheadedness, other times hypotensive per daughter-diastolic at times below 50 Limb alert care status pt states has had BP/IVs in LUE since L breast surgery but has chronic swelling in that arm Myocardial Infarction 11/2001 treated with open heart surgery [place] On anticoagulant therapy Peripheral arterial disease s/p stent placement to right LE (right iliac artery) Peripheral edema suspected LUE lymphedema per pt and daughter, chronic peripheral upper and lower extremity edema on prn diuretic therapy; denies change or worsening this week Prediabetes Exercise / Class Metabolic Activity III < 4 Walking/Shop/Light housework (no chest pain or SOB with flat surface ambulation ) Past Family History Family History Other Heart disease No family history of adverse response to anesthesia Past Surgical History Surgical History History of cardiac cath ~15-20 years ago, [place] History of colonoscopy History of coronary artery bypass graft x 1 History of right-sided carotid endarterectomy History of surgical removal of left nipple Hx of heart artery stent (~2003) (between 15 and 20 years ago) total x2 stents at [facility] Hx of lumpectomy left Past Anesthesia History No Hx of Anesthesia Complications and No Family Hx of Anesthesia Complications History of PONV No Hx of Motion Sickness and History of PONV (Noted with left TKA ) Social History Smoking Status: Former smoker Do You Dip or Chew Tobacco: No Smoking End Date: 20 years ago Hx Alcohol Use: Yes Alcohol type: wine alcohol intake frequency: other Alcohol Intake Frequency Comment: very rare Hx Substance Use: No substance use type: does not use Review of Systems Unknown if snoring- sleeps alone Patient denies chest pain, shortness of breath at rest, dyspnea on exertion, cough, wheezing, palpitations. No hx of seizures, stroke. No hx of blood clotss Physical Exam Vital Signs VITALS BP 115/67 P 61 TEMP 98.2 SP02 98% RESP 16 Constitutional no acute distress ENMT Mouth: no TMJ clicking Thyromental Distance: > or= 3.5 Finger Breadths (3.5) Mallampati Class: III Neck + limited neck extension (mild ) Respiratory normal respiratory effort; no respiratory distress Auscultation: lungs clear to auscultation bilaterally; no wheezes Cardiovascular Rate/Rhythm: regular rate and regular rhythm Heart Sounds: + murmur (III/ murmur ) Vessels: + carotid bruit (bilateral bruit vs radiation for murmur ) Musculoskeletal Spine: no pain with cervical ROM Extremities: extremities normal to inspection Psychiatric Orientation: alert Lab Results Anesthesia Preop Results Results Anesthesia Widget: WBC 6.81 K/ul (4.8-10.8) 10/06/22 Hgb 10.2 g/dl (12.0-16.0) L 10/06/22 Hct 32.2 % (34.1-44.9) L 10/06/22 Plt 272 K/uL (130-400) 10/06/22 Na 141 mmol/L (136-145) 10/06/22 K 4.1 mmol/L (3.5-5.1) 10/06/22 Cl 111 mmol/L (98-107) H 10/06/22 CO2 25 mmol/L (21-32) 10/06/22 BUN 27 mg/dl (6-23) H 10/06/22 Creat 1.03 mg/dl (0.6-1.2) 10/06/22 Glucose Level 115 mg/dl (70-99(Fasting)) H 10/06/22 PT 11.2 Seconds (9.0-12.0) 10/06/22 PTT 28.2 Seconds (21.0-31.0) 10/06/22 INR 1.1 (0.9-1.1) 10/06/22 HA1c 6.2 % (4.5-5.6) H 10/06/22 Blood Type A Positive 10/06/22 Antibody Screen NEGATIVE 10/06/22 Testing Laboratory Results Anemia noted- sent note to PCP; surgeon's office informed Electrocardiogram Date: 05/13/22 SR with 1st degree AVB at 62bpm Poor R wave progression, consider anterior HI vs lead placement vs LVH Chest X-Ray Date: 05/13/22 Findings: + NAD and + cardiomegaly (moderate ) FINDINGS: Left axillary surgical clips are noted. There are median sternotomy wires and mediastinal surgical clips. There is moderate cardiomegaly without evidence for pulmonary edema. No consolidation to suggest pneumonia. There is no pneumothorax or pleural effusion. Echocardiogram Date: 06/03/22 EF: 60-64% LV Function: normal RWMA: + none Other Findings: + diastolic dysfunction (Grade II); no LVH LA mildly enlarged AV moderately calcified. Moderate AV stenosis (KAVIN 0.82-0.92cm2; AV max velocity 3.285m/s; AV mean PG 18.3mmHg) Mild AR. Mild MR Compared to report of the outside study back 02/25/20, AV stenosis has progressed, from mild AV stenosis to moderate AV stenosis Stress Test Date: 01/17/19 Normal myocardial perfusion images without evidence for pharmacologically induced ischemia Normal LV wall motion and thickening EF 69% Cardiac Catheterization Date: 06/29/13 LM= normal LAD= prox 40% stenosis, however the stenting site is patent; mid 100% occlusion, diagonal branch 40% stenosis, WALKER graft to LAD is patent Cx = showed proximal 85%, mid 10%, and the stenting site is patent RCA= shows mid long 95% stenosis and distal 100% Stent placed to Cx artery successfully Other Testing Carotid doppler 07/28/22= < 50% stenosis to bilateral internal carotid arteries. Antegrade flow to both vertebral arteries COVID-19 Risk Screen Screening Information COVID-19 Screen Date: 10/06/22 Exposure 21 Days Family/Household +COVID Last 21 Days: No Exposure 10 Days Any COVID Exposure Last 10 Days: No Symptoms Last 10 Days Experienced COVID Sx Last 10 Days: No + COVID 0-90 Days COVID + in Last 0-90 Days: No Risk Plan COVID Risk Plan: No Risk Identified Patient Education COVID Preop Screening Education Complete: Yes
[~2022-11-16 06:33] MED LIST: ACETAMINOPHEN 500 MG TAB PO SCH; FAMOTIDINE 20 MG TAB PO SCH; GABAPENTIN 300 MG CAP PO SCH; LR 15ML/HR IV SCH; LR 60ML/HR IV SCH; ORTHO JOINT MIX INFIL SCH; TRANEXAMIC ACID 1,000 MG **IV Intra-op IV SCH; TRANEXAMIC ACID 1,000 MG **IV Pre-op IV SCH; ceFAZolin 2000MG 2,000 MG/15 ML SYR IV SCH; dexAMETHasone 4 MG TAB PO SCH
[2022-11-16] MEDS ORDERED: ROPIVACAINE 0.5% 5 MG/ML 30 ML VIAL ONE (06:36)
[2022-11-16] MEDS ORDERED: BUPIVACAINE 0.5 % 5 MG/1 ML PF 10ML VIAL ONE (06:36)
--- NOTE | 2022-11-16 06:56 | History & Physical Report ---
Date of Service November 16, 2022 Assessment & Plan (1) Osteoarthritis of right knee: We will proceed with a right total knee arthroplasty. Postoperatively she will be started on Eliquis for DVT prophylaxis and kept overnight in the hospital for postop medical management. [facility]. History of Present Illness Chief Complaint: Osteoarthritis of the right knee. Primary Care Provider: Ynes Ricardo DO This is a pleasant 81-year-old female who I did a left knee replacement in June 2022. She has done extremely well with that. She is not having any left knee pain. Unfortunately, she has been dealing with a lot of right knee pain. She has known osteoarthritis of the right knee. She is really struggling with it. She is ambulating with the walker. X-rays have shown worsening osteoarthritis of the right knee. After failing conservative treatment, she has elected to proceed with a right total knee arthroplasty. Allergies Allergy/AdvReac Type Severity Reaction Status Date / Time No Known Allergies Allergy Verified 09/30/22 12:50 Home Medications Medication Instructions Recorded Confirmed Type amlodipine 5 mg tablet 5 mg PO QAM 03/31/22 09/30/22 History apixaban 5 mg tablet (Eliquis) 5 mg PO BID 03/31/22 09/30/22 History aspirin 81 mg tablet,delayed 81 mg PO HS 03/31/22 09/30/22 History release (Adult Low Dose Aspirin) esomeprazole magnesium 20 mg 20 mg PO QAM 03/31/22 09/30/22 History capsule,delayed release (Nexium) levothyroxine 25 mcg capsule 25 mcg PO QAM 03/31/22 09/30/22 History losartan 50 mg tablet 50 mg PO BID 03/31/22 09/30/22 History multivitamin 1 tab PO QAM 03/31/22 09/30/22 History omega 4-yyc-pzv-fish oil 1,000 mg 1 cap PO BID 03/31/22 09/30/22 History (120 mg-180 mg) capsule (Fish Oil) rosuvastatin 5 mg tablet (Crestor) 5 mg PO HS 03/31/22 09/30/22 History solifenacin 10 mg tablet (Vesicare) 10 mg PO QAM 03/31/22 09/30/22 History alendronate 70 mg tablet (Fosamax) 70 mg PO Q7D 05/10/22 09/30/22 History buspirone 5 mg tablet 5 mg PO BID PRN anxiety 05/10/22 09/30/22 History sotalol 80 mg tablet 40 mg PO BID 05/10/22 09/30/22 History furosemide 20 mg tablet 20 mg PO DAILY PRN Edema 09/30/22 09/30/22 History Past Med/Surg History Medical History A-fib Hx cardioversion - currently managed with medication and Eliquis. Follows with Dr Schaefer ([facility]) Anxiety occasionally Aortic stenosis Moderate per 06/03/22 ECHO Breast cancer (~2001) Left breast cancer (lumpectomy)- s/p XRT CAD (coronary artery disease) s/p CABG x 1 (2002) 2 Cx stents (2009, 2012) with residual disease; per 2012 cath: left main normal. LAD: mid 100% occlusion, diagonal branch 40%, WALKER graft to LAD patent. Cx proximal 85%, mid 10% and stenting site patent-stent placed to Cx during cath. RCA: mid long 95% and distal 100%. Carotid artery stenosis S/p right carotid endarterectomy (2002) CKD (chronic kidney disease), stage III GERD (gastroesophageal reflux disease) controlled, stable per pt High cholesterol History of blood transfusion 2001- s/p CABG History of cardioversion ~ at [facility]. History of urinary incontinence Hypothyroid Labile hypertension Cccasionally symptomatic with hypertension experiencing severe MURILLO/lightheadedness, other times hypotensive per daughter-diastolic at times below 50 Limb alert care status pt states has had BP/IVs in LUE since L breast surgery but has chronic swelling in that arm Myocardial Infarction 11/2001 treated with open heart surgery [place] On anticoagulant therapy Peripheral arterial disease s/p stent placement to right LE (right iliac artery) Peripheral edema suspected LUE lymphedema per pt and daughter, chronic peripheral upper and lower extremity edema on prn diuretic therapy; denies change or worsening this week Prediabetes Surgical History History of cardiac cath ~15-20 years ago, [place] History of colonoscopy History of coronary artery bypass graft x 1 History of right-sided carotid endarterectomy History of surgical removal of left nipple Hx of heart artery stent (~2003) (between 15 and 20 years ago) total x2 stents at [facility] Hx of lumpectomy left Family History Other Heart disease No family history of adverse response to anesthesia Social History Smoking Status: Former smoker Smoking End Date: 20 years ago; Second Hand Exposure: Yes (not for many years); Do You Dip or Chew Tobacco: No; Tobacco Cessation Education Requested by Patient: No Hx Alcohol Use: Yes Alcohol type: wine Hx Substance Use: No Preferred Language: Indonesian Communication Ability: Effective 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 Other Information That Helps Us Care for You: No Feels Safe at Home: Yes Safety Concerns: Feels Safe At This Time Assistive Devices: Walker Assistive Devices Comment: reading glasses Review of Systems All systems reviewed & are unremarkable except as noted in HPI & below. Physical Exam On physical examination the right knee, she is ambulating with a walker. She has range of motion from 5 to 115 degrees. No gross instability.. Constitutional WD/WN, vitals as above Eyes PERRL, conjunctivae normal, anicteric sclerae ENMT external ear and nose normal, oropharynx normal Neck trachea midline, no thyromegaly Respiratory normal respiratory effort, lungs clear to auscultation Cardiovascular RRR, no murmur, no edema Gastrointestinal (Abdomen) normal bowel sounds, soft, nontender, no hepatosplenomegaly Skin no rashes, warm and dry Psychiatric A+Ox3, euthymic affect Results & Data Results & Data Laboratory Results . Diagnostic Findings X-rays of the right knee show worsening osteoarthritis with joint space narrowing, osteophyte formation, and [id number]-ih-[id number] articulation. PG Care Time/CCT Total # of Minutes Spent Total Time Spent with Patient: Total time spent is greater than 50% in coordination of care (as documented) at patient's floor/unit and/or counseling patient: Coding Level of Care Code None Diagnoses Osteoarthritis of right knee M17.11
[2022-11-16] MEDS ORDERED: MIDAZOLAM HCL 1 MG/ML 2ML VIAL ONE (08:00)
[2022-11-16] MEDS ORDERED: DEXAMETHASONE SOD INJ 4 MG/ML VIAL ONE (08:00)
[2022-11-16] MEDS ORDERED: PROPOFOL IV EMULSION 10 MG/ML 20 ML VIAL IV ONE (08:00)
[2022-11-16] MEDS ORDERED: ONDANSETRON INJ 2 MG/ML 2 ML VIAL ONE (08:00)
[2022-11-16] MEDS ORDERED: fentaNYL citrate 100 MCG/2 ML VIAL ONE ×2 (08:01→09:38)
[2022-11-16] MEDS ORDERED: ATROPINE SULFATE 0.1 MG/ML 10ML SYR IV PRN (08:34)
[2022-11-16] MEDS ORDERED: MEPERIDINE HCL 25 MG/ML CARP/VIAL IV PRN (08:34)
[2022-11-16] MEDS ORDERED: ONDANSETRON INJ 2 MG/ML 2 ML VIAL IV PRN (08:34)
[2022-11-16] MEDS ORDERED: PROMETHAZINE HCL 12.5 MG in SODIUM CHLORIDE 0.9% 50 ML IV PRN (08:34)
[2022-11-16] MEDS ORDERED: ePHEDrine sulfate 50 MG/ML AMP IV PRN (08:34)
[2022-11-16] MEDS ORDERED: HYDROmorphone INJ 1 MG/ML SYRINGE IV PRN (08:34)
[2022-11-16] MEDS ORDERED: ORTHO JOINT ANESTHETIC ONE (08:53)
[2022-11-16] MEDS ORDERED: PHENYLEPHRINE HCL 10 MG/ML VIAL ONE (09:25)
[2022-11-16] MEDS ORDERED: HYDROmorphone INJ 2 MG/ML SYR/VIAL ONE (09:55)
--- NOTE | 2022-11-16 10:56 | Operative Report ---
PG Post Operative Report Pre & Post Diagnosis Operation Date: 11/16/22 08:50 Pre-Op Diagnosis: Right Knee Degenerative Joint Disease Post-Op Diagnosis: Right Knee Degenerative Joint Disease I identified the patient and participated in the time-out.: Yes Procedure Operation Date: 11/16/22 08:50 Actual Procedures p Right Total Knee Arthroplasty(Right) - Tj Juan DO Surgeon Tj Juan DO Service Inspector None Estimated Blood Loss 30 Findings Consistent with Post-Op Diagnosis Specimens Right femoral and tibial bone Description of Procedure Implants used: I used a Jair Persona total knee arthroplasty system with a size 5 standard PS femur, D tibia with a 30 mm stem extension, 31 patella, and a size 12 CPS matthew yethylene bearing. All components were cemented in place with Biomet cement. Sally arrived [facility] for the above procedure. She was seen in the preoperative holding area and the operative extremity was identified and signed. She was given a preoperative antibiotic, TXA, a spinal anesthetic and an adductor nerve block. She was taken back to the operating room and laid on the table in supine position. She was given basic sedation. The operative knee was then prepped and draped in sterile fashion. A timeout was done, and the patient and the operative extremity was properly identified. A midline incision was made directly over the patella. Dissection was taken down to the extensor mechanism. A subvastus arthrotomy was used. The medial retinaculum was released and the fat pad was mostly excised. The knee was flexed and the ACL, PCL, and meniscus were removed. A drill was sent down the center of the femoral canal followed by an intramedullary bennett. Off that bennett a distal femoral cutting block was placed. 9 mm was resected off the distal femur at 5 of valgus. A posterior referencing AP sizing guide was then placed on the distal femur. The femur measured to be a size 5. 2 drill holes were placed in 3 of external rotation. A 4-in-1 cutting block was then impacted into place. Anterior, posterior, and chamfer cuts were then made. The proximal tibia was then exposed. An external tibial alignment guide was placed. A tibial cut guide was then anchored in place and the proximal tibia was then resected. The posterior aspect of the knee was then opened up and any additional meniscus fragments and osteophytes were removed. The tibia measured to be a size D. The tibial plate was then placed in the appropriate rotation and the tibia was drilled and punched. Trial components were then placed. I used a size 12 CPS polyethylene insert. The knee was brought through a full range of motion and felt to be stable. The peg holes for the femoral component were then drilled. The patella was then everted and 9 mm was resected off the posterior aspect of the patella. The patella measured to be a size 31 oval. 3 peg holes were then drilled. A trial patella was placed. The knee was once again brought through a full range of motion and felt to be stable. Trial components were then removed. The surrounding soft tissues were injected with 100 cc of an orthopedic pain control cocktail. All components were then cemented into place with Biomet cement. The final polyethylene insert was then snapped into place. Once cement was dry the tourniquet was deflated. Hemostasis was obtained. A dilute betadyne lavage was then done for 3 minutes. The joint was then irrigated with normal saline solution. The subvastus arthrotomy was then closed with #1 Vicryl suture. The skin was closed with 2-0 Vicryl, 3-0V lock suture, and ailyn. A soft compressive dressing was placed. She was then transferred to a hospital bed and taken to the postanesthesia care unit in stable condition. She tolerated the procedure well. I attest to the content of the Intraoperative Record and any orders documented therein. Any exceptions are noted below.
[2022-11-16] MEDS ORDERED: oxyCODONE HCL IR 5 MG TAB (IMMEDIATE RELEASE) PO PRN (10:58)
[2022-11-16] MEDS ORDERED: bisacodyL 10 MG SUPP PR PRN (10:58)
[2022-11-16] MEDS ORDERED: METOCLOPRAMIDE HCL INJ 5 MG/ML 2 ML VIAL IV PRN (10:58)
[2022-11-16] MEDS ORDERED: HYDROmorphone INJ 0.5 MG/0.5 ML SYR IV PRN (10:58)
[2022-11-16] MEDS ORDERED: MAGNESIUM HYDROXIDE SUSP 30 ML UDC PO PRN (10:58)
[2022-11-16] MEDS ORDERED: NALOXONE HCL 0.4 MG/1 ML VIAL/CARP IV PRN (10:58)
[2022-11-16] MEDS ORDERED: oxyCODONE/ACETAMINOPHEN 5mg/325mg TAB PO PRN (10:58)
--- NOTE | 2022-11-16 11:25 | Anesthesiology Progress Note ---
Date of Service November 16, 2022 Anesthesia Post Procedure Vital Signs Vital Signs: Temp Pulse Pulse Resp BP Pulse Ox O2 Del Method 11/16/22 11:15 36.4 C L 79 12 148/73 H 92 Oxymask 11/16/22 11:05 79 14 125/63 98 Oxymask 11/16/22 10:55 72 18 127/62 91 Oxymask 11/16/22 10:45 36.4 C L 81 15 132/80 98 Oxymask 11/16/22 06:56 36.8 C 59 L 20 166/64 H 100 Room Air O2 Flow Rate 11/16/22 11:15 3 11/16/22 11:05 6 11/16/22 10:55 6 11/16/22 10:45 10 11/16/22 06:56 Transfer of Care Handoff Completed per policy Notes Mental Status: alert / awake / arousable and participated in evaluation Patient Amnestic to Procedure: Yes Nausea / Vomiting: adequately controlled Pain: adequately controlled Airway Patency, RR, SpO2: stable & adequate BP & HR: stable & adequate Hydration State: stable & adequate Anesthetic Complications: no major complications apparent and Pt Satisfied with anesthetic care
--- NOTE | 2022-11-16 12:15 | XRay Report ---
XR knee RT 1 or 2V routine CLINICAL HISTORY: Postoperative evaluation. COMPARISON: Knee radiographs September 20, 2022. FINDINGS: Alignment of the total right knee arthroplasty is anatomic. There is no periprosthetic fra cture or unexpected radiopaque foreign body. There are skin ailyn. IMPRESSION: Expected findings following total right knee arthroplasty. ACT 112: Negative or not required by law. Electronically signed by: Antonio Garcia M.D. 11/16/2022 12:14 PM
[2022-11-16] MEDS ORDERED: busPIRone 5 MG TAB PO PRN (12:18)
[2022-11-16] MEDS: SODIUM CHLORIDE 0.9% 1000ML 1,000 ML IV SCH ×2 (12:58→22:04)
[2022-11-16] MEDS: KETOROLAC TROMETHAMINE 15 MG/ML VIAL IV SCH ×2 (13:45→18:55)
[2022-11-16] MEDS: ceFAZolin 2000MG 2,000 MG/15 ML SYR IV SCH (17:31)
[2022-11-16] MEDS ORDERED: ASPIRIN 81 MG ECTAB PO SCH ×2 (21:00)
[2022-11-16] MEDS: DOCUSATE SODIUM 100 MG CAP PO SCH (22:02)
[2022-11-16] MEDS: LOSARTAN POTASSIUM 50 MG TAB PO SCH (22:02)
[2022-11-16] MEDS: SOTALOL HCL 80 MG TAB PO SCH (22:03)
[2022-11-16] MEDS: ROSUVASTATIN CALCIUM 5 MG TAB PO SCH (22:03)
[2022-11-16] MEDS: SENNA 8.6 MG TAB PO SCH (22:03)
[2022-11-17] MEDS: KETOROLAC TROMETHAMINE 15 MG/ML VIAL IV SCH ×2 (01:16→06:09)
[2022-11-17] MEDS: ceFAZolin 2000MG 2,000 MG/15 ML SYR IV SCH (01:17)
[2022-11-17] MEDS ORDERED: dexAMETHasone 4 MG TAB PO SCH (08:00)
[2022-11-17] MEDS: SOTALOL HCL 80 MG TAB PO SCH ×2 (08:32→20:46)
[2022-11-17] MEDS: amLODIPine BESYLATE 5 MG TAB PO SCH (08:32)
[2022-11-17] MEDS: MULTIVITAMIN TAB PO SCH (08:32)
[2022-11-17] MEDS: APIXABAN 5 MG TABLET PO SCH ×2 (08:32→20:45)
[2022-11-17] MEDS: PANTOprazole 40 MG TAB PO SCH (08:32)
[2022-11-17] MEDS: LEVOTHYROXINE SODIUM 25 MCG TABLET PO SCH (08:32)
[2022-11-17] MEDS: LOSARTAN POTASSIUM 50 MG TAB PO SCH ×2 (08:32→20:45)
[2022-11-17] MEDS: DOCUSATE SODIUM 100 MG CAP PO SCH ×2 (08:32→20:44)
[2022-11-17] MEDS: ACETAMINOPHEN 500 MG TAB PO PRN (09:49)
[2022-11-17] MEDS: traMADol HCL 50 MG TABLET PO PRN ×2 (14:29→20:50)
--- NOTE | 2022-11-17 17:17 | Orthopedic Progress Note ---
Date of Service November 17, 2022 Assessment & Plan (1) Status post right knee replacement: Overall she is doing fairly well. She is not having much pain in the right knee. She will be seen by physical therapy today for ambulation and range of motion exercises. She is on Eliquis for DVT prophylaxis. We will keep her in the hospital today for therapy and pain control. We will plan discharge to home tomorrow. Mai Zavala was seen and examined at bedside this morning. Overall she is doing fairly well. She is not in too much pain in her right knee. She was able to walk to the bathroom last night. She has no complaints.. Review of Systems All systems reviewed & are unremarkable except as noted in HPI & below. Physical Exam On physical examination of the right knee, the dressing is clean and dry. Her leg is out full extension. She has active dorsiflexion plantarflexion of her right ankle.. Results & Data Results & Data Laboratory Results . Diagnostic Findings Postoperative x-rays of the right knee show the prosthesis to be in anatomic alignment without any evidence of fracture, desiccation, or loosening.. PG Care Time/CCT Total # of Minutes Spent Total Time Spent with Patient: Total time spent is greater than 50% in coordination of care (as documented) at patient's floor/unit and/or counseling patient: Coding Level of Care Code 98316 Post Operative Follow-Up Diagnoses Status post right knee replacement Z96.651
[2022-11-17] MEDS: SENNA 8.6 MG TAB PO SCH (20:44)
[2022-11-17] MEDS: ROSUVASTATIN CALCIUM 5 MG TAB PO SCH (20:45)
[2022-11-18] MEDS: ACETAMINOPHEN 500 MG TAB PO PRN (05:50)
[2022-11-18] MEDS: traMADol HCL 50 MG TABLET PO PRN ×2 (08:22→13:26)
[2022-11-18] MEDS: SOTALOL HCL 80 MG TAB PO SCH (08:23)
[2022-11-18] MEDS: APIXABAN 5 MG TABLET PO SCH (08:23)
[2022-11-18] MEDS: LOSARTAN POTASSIUM 50 MG TAB PO SCH (08:23)
[2022-11-18] MEDS: amLODIPine BESYLATE 5 MG TAB PO SCH (08:24)
[2022-11-18] MEDS: PANTOprazole 40 MG TAB PO SCH (08:24)
[2022-11-18] MEDS: MULTIVITAMIN TAB PO SCH (08:24)
[2022-11-18] MEDS: LEVOTHYROXINE SODIUM 25 MCG TABLET PO SCH (08:24)
[2022-11-18] MEDS: DOCUSATE SODIUM 100 MG CAP PO SCH (08:25)
--- NOTE | 2022-11-18 15:25 | Orthopedic Progress Note ---
Date of Service November 18, 2022 Assessment & Plan (1) Status post right knee replacement: Overall she is doing well. She is not having much pain in the right knee. She will be seen by physical therapy today for ambulation and range of motion exercises. She is on Eliquis for DVT prophylaxis. She can be discharged home later today. She will follow-up orthopedics in 2 weeks. Subjective Sally was seen and examined at bedside this morning. Overall she is doing very well. She is not having much pain in the right knee. She worked well yesterday with physical therapy. She has no complaints.. Review of Systems All systems reviewed & are unremarkable except as noted in HPI & below. Physical Exam On physical examination of the right knee, the dressing is clean and dry. Her leg is out full extension. She has active dorsiflexion plantarflexion of her right ankle.. Results & Data Results & Data Laboratory Results . Diagnostic Findings . PG Care Time/CCT Total # of Minutes Spent Total Time Spent with Patient: Total time spent is greater than 50% in coordination of care (as documented) at patient's floor/unit and/or counseling patient: Coding Level of Care Code 48754 Post Operative Follow-Up Diagnoses Status post right knee replacement Z96.651
--- NOTE | 2022-11-18 15:26 | Discharge Summary ---
Date of Service November 18, 2022 Admission HPI (Per Admitting) This is a pleasant 81-year-old female who I did a left knee replacement in June 2022. She has done extremely well with that. She is not having any left knee pain. Unfortunately, she has been dealing with a lot of right knee pain. She has known osteoarthritis of the right knee. She is really struggling with it. She is ambulating with the walker. X-rays have shown worsening osteoarthritis of the right knee. After failing conservative treatment, she has elected to proceed with a right total knee arthroplasty. Admission Exam (Per Admitting) On physical examination the right knee, she is ambulating with a walker. She has range of motion from 5 to 115 degrees. No gross instability.. Principal Diagnosis Same as "Discharge Diagnosis" noted below under Discharge Instructions. Discharge Exam On physical examination of the right knee, the dressing is clean and dry. Her leg is out full extension. She has active dorsiflexion plantarflexion of her right ankle.. Discharge Data Procedures Performed Operation Date: 11/16/22 08:50 Actual Procedures p Right Total Knee Arthroplasty(Right) - Tj Juan DO Ordered Studies 11/16/22 05:00 US - OR guided needle placemen Routine Hospital Course (1) Status post right knee replacement: On November 16, 2019. Sally arrived at [facility] and underwent a right knee replaced without complication. She had a spinal anesthetic. Postoperatively she was started back on Eliquis for DVT prophylaxis and transferred to the general orthopedic floors. Her hospital course was uneventful. On postop day #1, her vital signs were stable and her pain was well controlled. She was able to participate well with physical therapy doing ambulation and range of motion exercises. On postop day #2, she continued to do well. She was seen once again by physical therapy. She was then discharged [facility]. She will follow with orthopedics in 2 weeks. PG Care Time/CCT Total # of Minutes Spent Total Time Spent with Patient: Total time spent is greater than 50% in coordination of care (as documented) at patient's floor/unit and/or counseling patient: Discharge Plan Discharge Items Patient Disposition: Home - Home Health Services Reason For Visit: STATUS POST KNEE REPLACEMENT Discharge Diagnosis: Right knee replacement Activity: Per Instructions section Non-emergency contact: Surgeon Call non-emergency contact if: your wound has increased redness and your wound has increased drainage Follow-up/Referrals: Ynes Ricardo DO [Primary Care Provider] - Diet: Regular Addtl Attending Provider Instructions: Activity and Therapy Recommendations: * If you are using [facility] then therapy will be provided at your home until they feel you have accomplished all of your goals. * If you are using [facility] then Physical Therapy will be provided until they feel you are ready to start Outpatient Physical Therapy. * If you are not using home therapy then Outpatient Physical Therapy should start about 3-5 days from your day of surgery. Therapy will last about 6-10 weeks * It is important not to put a pillow under your knee when you are relaxing or sleeping. It is just as important to make sure you are getting your knee perfectly straight as it is to regain your knee bend. * You were shown a series of exercises in the hospital. Do these exercises three times each day including the exercises you were shown in physical therapy. * Get up and walk several times each day. For the first four weeks, try not to stand or walk for more than one hour at a time. If you do stand or walk for more than one hour, you will not hurt anything, but your leg will likely swell. * As you feel comfortable, you may change from the walker or crutches to a cane and then to independent walking. Medications: * Narcotic You will likely be sent home from the hospital with a prescription for the narcotic pain medication that worked best throughout your stay. * Aspirin Most patients will be required to take Aspirin 81mg twice a day for 6 weeks after surgery. This is obtained [id number] and a prescription is not necessary. * Other medications may be prescribed for specific circumstances. If you have any questions, please call the office at . * Resume previous home medications unless otherwise instructed TEDs/Elastic Stockings: The white elastic stockings help limit swelling and prevent blood clots from forming in your legs.~ The more you wear them, the more they work. Wear them for six weeks. Dressing Care: The dressing can be changed after physical therapy on postop day #1. Daily dry dressing changes for a few days, especially if the incision is still draining some. If the incision is not draining then you may leave the ailyn open to air. If there is a little bit of drainage or if the ailyn are getting stuck on your clothing then cover the incision with a dry dressing. The ailyn will be removed at your 2 week follow-up appointment. Showering: You may shower 5 days from the day of surgery as long as the incision is no longer draining. You may shower with the ailyn exposed. Let soapy water run over the ailyn and pat them dry. Do not scrub or soak the incision. Things To Watch For: * Drainage from the incision site that occurs more than one week after your surgery. * Increased redness at the incision site. * Fever above 102 degrees Fahrenheit. * Unusual chest pain or shortness of breath. * Call [facility] at with any of the above problems Follow-Up Visit: Follow-up with Dr. Juan's PA (Tj Berger) 2-3 weeks after your day of surgery. He will remove your ailyn and answer any questions. If you have any additional questions or concerns, Dr Juan is usually in the office at the same time and will be available An appointment was probably scheduled when you signed-up for surgery in the office. If you have any questions call Office Instructions: More detailed instructions as well as Frequently Asked Questions were provided in a folder by our office when you signed-up for surgery. Please review these instructions when you get home. If you have any further questions or concerns, please feel free to call the office at [phone] Pending Studies at Discharge: No Stand-Alone Forms: My [facility] Medications and DC Order Prescriptions: New tramadol 50 mg tablet 50 mg PO Q6H PRN (Reason: pain) Qty: 30 0RF Continued Eliquis 5 mg tablet 5 mg PO BID losartan 50 mg tablet 50 mg PO BID levothyroxine 25 mcg capsule 25 mcg PO QAM amlodipine 5 mg tablet 5 mg PO QAM rosuvastatin [Crestor] 5 mg tablet 5 mg PO HS esomeprazole magnesium [Nexium] 20 mg capsule,delayed release(DR/EC) 20 mg PO QAM solifenacin [Vesicare] 10 mg tablet 10 mg PO QAM aspirin [Adult Low Dose Aspirin] 81 mg tablet,delayed release (DR/EC) 81 mg PO HS omega 3-saa-sye-fish oil [Fish Oil] 1,000 mg (120 mg-180 mg) capsule 1 cap PO BID multivitamin Tablet 1 tab PO QAM sotalol 80 mg Tablet 40 mg PO BID alendronate [Fosamax] 70 mg Tablet 70 mg PO Q7D buspirone 5 mg Tablet 5 mg PO BID PRN (Reason: anxiety) furosemide 20 mg Tablet 20 mg PO DAILY PRN (Reason: Edema) Admission Data Admit Date/Time: 11/16/22 10:59 Attending Provider: Tj Juan Admit Provider: Tj Juan Primary Care Provider: Ynes Ricardo Other Interventions: Discharge Summary Assessment (RN) Last Done: 11/18/22 13:19
== END 2022-11-18 14:38 | disposition home health service (06) ==
LOC: 3E 06:33 → ASU 06:33

== ENCOUNTER 2025-08-20 16:52 | Inpatient (IN) ==
--- NOTE | 2025-08-20 17:10 | Emergency Department Note ---
Impression & Plan Acute hypoxemic respiratory failure, Acute exacerbation of CHF (congestive heart failure), Flash pulmonary edema ED Provider Note NAME: KAI VICENTE AGE: 84 SEX: F : 1940 ARRIVES VIA: Walk-In INFORMANT: Patient, ED PROVIDER(S): Yonis Mohr DO CHIEF COMPLAINT: SOB HPI: Patient is an 84-year-old female with a past medical history of low back pain, scoliosis who presents to the ER for shortness of breath. Shortness of breath started earlier today. Daughters present at bedside provides majority of history notes that she always has shortness of breath but worsened significantly today. She went to Dr. Sahu's office and a cystoscopy. Patient denies receiving any medications for this. No headache or change in vision. No new cough or congestion. No belly pain, nausea, vomiting or diarrhea. She denies any chest pain but admits to severe shortness of breath. ADDITIONAL HISTORY OBTAINED: Per HPI Chronic Medical/Social Conditions Affecting Care: Per HPI PAST MEDICAL HISTORY:See Below PAST SURGICAL HISTORY:See Below FAMILY HISTORY:See Below SOCIAL HISTORY:See Below HOME MEDICATIONS:See Below ALLERGIES:See Below VITALS:See Below PHYSICAL EXAMINATION: GENERAL: Sitting up in bed, alert, ill-appearing, moderate distress, able to answer one-word questions EYE EXAM: normal conjunctiva. PERRL and EOM's grossly intact. OROPHARYNX: no exudate, no erythema, lips, buccal mucosa, and tongue normal and mucous membranes are moist NECK: supple, no nuchal rigidity, no adenopathy, non-tender LUNGS: Rhonchi bilaterally. Normal chest wall mechanics HEART: no murmurs, S1 normal and S2 normal ABDOMEN: abdomen soft, non-tender, normo-active bowel sounds, no masses, no rebound or guarding. UPPER EXTREMITIES: upper extremities are grossly normal. LOWER EXTREMITIES: No pitting edema. Pitting edema in the lower extremities NEURO EXAM: Normal sensorium, cranial nerves II-XII grossly intact, normal speech, no gross weakness of arms, no gross weakness of legs. MEDICAL DECISION MAKING: Patient is an 84-year-old female with a PMH of CAD (CABG 2002 WALKER/LAD) stents to LCX, hypothyroidism, PVD, HLD, Afib on Eliquis, GERD, HTN, s/p CEA, Illiac stent, CKDIII, , MR who presents to the ER for sudden onset of shortness of breath. Upon presentation she is found to be dyspneic, hypoxic at 80% with a blood pressure of 200 systolic over 140. She has pitting edema in the lower extremities. She was placed on nonrebreather and respiratory called for BiPAP. She was switched to BiPAP. PEEP was increased gradually and she started satting in the low 90s. Labs show no significant leukocytosis or anemia. VBG with a pH of 7.30 and a CO2 of 47. BMP with a mild hypokalemia at 3.4. Creatinine at 1.27. Lactate at 1.7. LFTs and bilirubin were unremarkable. Troponin mildly elevated. BNP at 800. Lipase is normal. Chest x-ray showed cephalization with likely bilateral pulmonary edema worse on the left than the right. Patient was given nitro sublingually as well as Nitropaste 2 inches and placed on a nitro drip. Blood pressures trended down to the 140s. Respiratory rate as well as blood pressure and oxygen saturation improved significantly. Patient was feeling better. Discussed the case with the occupational therapist rehab manager as well as the hospitalist and patient was admitted for hypoxic respiratory secondary to pulmonary edema. External records were reviewed through [facility] and there is no significant change in EKG when comparison to EKG from 2023 in [facility]. Consults/Care Managements Discussions: Per [facility] Triage Nursing notes reviewed. Limited review of prior medical records performed Vital Signs: reviewed and remarkable for hypoxic, tachycardic and hypertensive Differential diagnosis: Differential diagnoses includes but is not limited to pneumonia, bronchitis, COPD/Asthma exacerbation, pneumothorax, pulmonary embolism, congestive heart failure, acute coronary syndrome ER treatment provided: See below Diagnostics interpreted by me include EKG and cardiac monitoring as listed below: -Cardiac Monitoring: An order was placed for continuous cardiac monitoring. The monitor shows a rate of 120 with A-fib rhythm. -ECG: A-fib rate 88 Left axis No PVCs QTc 454 No significant change from September 19, 2024 -Laboratory studies:Interpreted by me as stated above in [facility] and shown below. Imaging studies: Xrays: As interpreted by me: Portable AP upright 1 view of the chest shows cephalization with bilateral infiltrates worse on the left CTs show: none Procedures:none Critical Care: I have personally spent 130 minutes of critical care time in the direct management of this patient. This includes bedside care, interpretation of diagnostic studies, and testing, discussion with consultants, patient, and family members, and other required patient management activities. This 130 minutes is in excess of all separately billable procedures. Past Med/Surg History Problem List Acute exacerbation of CHF (congestive heart failure) (Acute) Acute hypoxemic respiratory failure (Acute) Heart failure, systolic, with acute decompensation Flash pulmonary edema (Acute) Lumbar stenosis with neurogenic claudication Scoliosis of lumbar region due to degenerative disease of spine in adult Disc degeneration, lumbosacral Degenerative spondylolisthesis Low back pain potentially associated with radiculopathy Status post right knee replacement (~11/2022) Encounter for pre-operative examination Status post left knee replacement Medical History (Updated 08/20/25 @ 19:16 by Yonis Mohr DO) Aortic stenosis Moderate per 06/03/22 ECHO History of urinary incontinence Carotid artery stenosis S/p right carotid endarterectomy (2002) Limb alert care status pt states has had BP/IVs in LUE since L breast surgery but has chronic swelling in that arm Peripheral edema 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 LAD: mid 100% occlusion, diagonal branch 40%, WALKER graft to LAD patent. Cx proximal 85%, mid 10% and stenting site patent-stent placed to Cx during cath. RCA: mid long 95% and distal 100%. Prediabetes History of blood transfusion 2001- s/p CABG On anticoagulant therapy GERD (gastroesophageal reflux disease) controlled, stable per pt Anxiety occasionally Myocardial Infarction 11/2001 treated with open heart surgery [place] History of cardioversion ~ at [facility]. Breast cancer (~2001) Left breast cancer (lumpectomy)- s/p XRT High cholesterol Hypothyroid A-fib Hx cardioversion - currently managed with medication and Eliquis. Follows with Dr Schaefer ([facility]) Surgical History History of right-sided carotid endarterectomy History of coronary artery bypass graft x 1 History of colonoscopy History of cardiac cath ~15-20 years ago, [place] History of surgical removal of left nipple Hx of lumpectomy left Hx of heart artery stent (~2003) (between 15 and 20 years ago) total x2 stents at [facility] Family History Other Heart disease No family history of adverse response to anesthesia Social History Smoking Status: Never smoker Second Hand Exposure: Yes (not for many years); Do You Dip or Chew Tobacco: No; Hx Alcohol Use: Yes Alcohol type: wine Hx Substance Use: No Preferred Language: [place] Communication Ability: Effective Carpenter Required: No Beliefs That Will Affect Care: None marital status: / Current Living Situation: Alone Current Living Situation Comment: lives at [facility] Feels Safe at Home: Yes Assistive Devices: Walker Allergies Allergies Allergy/AdvReac Type Severity Reaction Status Date / Time gabapentin Allergy Intermediate SWELLING Verified 08/20/25 18:05 OF HANDS & ANKLES lovastatin AdvReac Intermediate MUSCLE Verified 08/20/25 18:05 ACHES nitrofurantoin AdvReac Intermediate GLOSSITIS Verified 08/20/25 18:05 [From Macrobid] [facility] Home Medications Medication Instructions Recorded Confirmed amlodipine 5 mg tablet 5 mg PO QAM 03/31/22 08/20/25 apixaban 5 mg tablet (Eliquis) 5 mg PO BID 03/31/22 08/20/25 aspirin 81 mg tablet,delayed 81 mg PO HS 03/31/22 08/20/25 release (Adult Low Dose Aspirin) esomeprazole magnesium 20 mg 20 mg PO QAM 03/31/22 08/20/25 capsule,delayed release (Nexium) losartan 50 mg tablet 50 mg PO BID 03/31/22 08/20/25 multivitamin 1 tab PO QAM 03/31/22 08/20/25 omega 5-ppk-nqb-fish oil 1,000 mg 1 cap PO BID 03/31/22 08/20/25 (120 mg-180 mg) capsule (Fish Oil) rosuvastatin 5 mg tablet (Crestor) 5 mg PO HS 03/31/22 08/20/25 alendronate 70 mg tablet (Fosamax) 70 mg PO Q7D 05/10/22 08/20/25 furosemide 20 mg tablet 40 mg PO DAILY 09/30/22 08/20/25 amoxicillin 500 mg capsule 2,000 mg PO DIRECTED PRN 1 HR 08/20/25 08/20/25 PRIOR TO DENTAL PROCEDURES cefdinir 300 mg capsule 300 mg PO BID 08/20/25 08/20/25 cranberry extract 500 mg capsule 500 mg PO BID 08/20/25 08/20/25 (Cranberry Concentrate) estradiol 0.01% (0.1 mg/gram) 1 applic vaginal DIRECTED 08/20/25 08/20/25 vaginal cream levothyroxine 75 mcg tablet 75 mcg PO DAILYBB 08/20/25 08/20/25 magnesium oxide 400 mg PO HS 08/20/25 08/20/25 metoprolol succinate 50 mg 50 mg PO QPM 08/20/25 08/20/25 tablet,extended release 24 hr mirabegron 50 mg tablet,extended 50 mg PO QAM 08/20/25 08/20/25 release 24 hr (Myrbetriq) polyethylene glycol 3350 17 17 g PO DAILY PRN Constipation 08/20/25 08/20/25 gram/dose oral powder (Miralax) ropinirole 0.5 mg tablet 0.5 mg PO HS 08/20/25 08/20/25 sulfamethoxazole 800 1 tab PO ONCE 08/20/25 08/20/25 mg-trimethoprim 160 mg tablet (Bactrim DS) Results & Data (ED) Vital Signs Vital Signs - 24 hr 08/20/25 16:57 08/20/25 16:58 08/20/25 17:24 Temperature 36.3 C L Temperature Source Temporal Artery Scan Pulse Rate 112 H 101 H Pulse Rate from SpO2 Sensor 101 H Respiratory Rate 24 27 H Respiratory Effort / Characteristics Spontaneous Labored Respiratory Depth Deep Respiratory Pattern Regular Blood Pressure 160/82 H 145/98 H Blood Pressure Mean 108 113 Pulse Oximetry 83 L 92 89 L Oxygen Delivery Method Room Air Nasal Cannula Oxygen Flow Rate 4 Fraction of Inspired Oxygen SaO2/FiO2 Ratio Sepsis Recent Fever Within 48 Hours No Sepsis New/Unexplained Change in Mental Status No Sepsis Action Taken by Nursing No Action Required 08/20/25 17:27 08/20/25 17:27 08/20/25 17:30 Temperature Temperature Source Pulse Rate 97 H 98 H 110 H Pulse Rate from SpO2 Sensor 95 H 105 H Respiratory Rate 34 H 31 H Respiratory Effort / Characteristics Respiratory Depth Respiratory Pattern Blood Pressure 162/107 H 162/107 H Blood Pressure Mean 125 125 Pulse Oximetry 92 93 Oxygen Delivery Method Oxygen Flow Rate Fraction of Inspired Oxygen SaO2/FiO2 Ratio Sepsis Recent Fever Within 48 Hours Sepsis New/Unexplained Change in Mental Status Sepsis Action Taken by Nursing 08/20/25 17:31 08/20/25 17:36 08/20/25 17:45 Temperature Temperature Source Pulse Rate 109 H 98 H 95 H Pulse Rate from SpO2 Sensor 101 H 97 H Respiratory Rate 30 H 32 H 38 H Respiratory Effort / Characteristics Spontaneous Labored Respiratory Depth Shallow Respiratory Pattern Tachypnea Blood Pressure 180/97 H 173/138 H Blood Pressure Mean 124 149 Pulse Oximetry 91 90 91 Oxygen Delivery Method Oxygen Flow Rate Fraction of Inspired Oxygen 100 SaO2/FiO2 Ratio Sepsis Recent Fever Within 48 Hours Sepsis New/Unexplained Change in Mental Status Sepsis Action Taken by Nursing 08/20/25 17:51 08/20/25 17:54 08/20/25 17:57 Temperature Temperature Source Pulse Rate 93 H 93 H 110 H Pulse Rate from SpO2 Sensor 102 H 107 H Respiratory Rate 24 32 H 35 H Respiratory Effort / Characteristics Respiratory Depth Respiratory Pattern Blood Pressure 167/102 H 167/102 H Blood Pressure Mean 123 123 Pulse Oximetry 91 89 L 91 Oxygen Delivery Method BiPAP Oxygen Flow Rate Fraction of Inspired Oxygen 100 SaO2/FiO2 Ratio 91 Sepsis Recent Fever Within 48 Hours Sepsis New/Unexplained Change in Mental Status Sepsis Action Taken by Nursing 08/20/25 17:58 08/20/25 18:00 08/20/25 18:00 Temperature Temperature Source Pulse Rate 111 H Pulse Rate from SpO2 Sensor 115 H Respiratory Rate 32 H Respiratory Effort / Characteristics Labored Short of Breath Respiratory Depth Respiratory Pattern Blood Pressure 162/116 H 162/116 H Blood Pressure Mean 131 131 Pulse Oximetry 89 L Oxygen Delivery Method BiPAP Oxygen Flow Rate Fraction of Inspired Oxygen 100 SaO2/FiO2 Ratio Sepsis Recent Fever Within 48 Hours Sepsis New/Unexplained Change in Mental Status Sepsis Action Taken by Nursing 08/20/25 18:00 08/20/25 18:00 08/20/25 18:00 Temperature Temperature Source Pulse Rate Pulse Rate from SpO2 Sensor Respiratory Rate Respiratory Effort / Characteristics Respiratory Depth Respiratory Pattern Blood Pressure 162/116 H 162/116 H 162/116 H Blood Pressure Mean 131 131 131 Pulse Oximetry Oxygen Delivery Method Oxygen Flow Rate Fraction of Inspired Oxygen SaO2/FiO2 Ratio Sepsis Recent Fever Within 48 Hours Sepsis New/Unexplained Change in Mental Status Sepsis Action Taken by Nursing 08/20/25 18:00 08/20/25 18:06 08/20/25 18:06 Temperature Temperature Source Pulse Rate 101 H Pulse Rate from SpO2 Sensor 92 H Respiratory Rate 39 H Respiratory Effort / Characteristics Respiratory Depth Respiratory Pattern Blood Pressure 162/116 H 182/104 H Blood Pressure Mean 131 149 Pulse Oximetry 87 L Oxygen Delivery Method Oxygen Flow Rate Fraction of Inspired Oxygen SaO2/FiO2 Ratio Sepsis Recent Fever Within 48 Hours Sepsis New/Unexplained Change in Mental Status Sepsis Action Taken by Nursing 08/20/25 18:06 08/20/25 18:06 08/20/25 18:06 Temperature Temperature Source Pulse Rate Pulse Rate from SpO2 Sensor Respiratory Rate Respiratory Effort / Characteristics Respiratory Depth Respiratory Pattern Blood Pressure 182/104 H 182/104 H 182/104 H Blood Pressure Mean 149 149 149 Pulse Oximetry Oxygen Delivery Method Oxygen Flow Rate Fraction of Inspired Oxygen SaO2/FiO2 Ratio Sepsis Recent Fever Within 48 Hours Sepsis New/Unexplained Change in Mental Status Sepsis Action Taken by Nursing 08/20/25 18:06 08/20/25 18:12 08/20/25 18:12 Temperature Temperature Source Pulse Rate Pulse Rate from SpO2 Sensor Respiratory Rate Respiratory Effort / Characteristics Respiratory Depth Respiratory Pattern Blood Pressure 182/104 H 138/99 138/99 Blood Pressure Mean 149 120 120 Pulse Oximetry Oxygen Delivery Method Oxygen Flow Rate Fraction of Inspired Oxygen SaO2/FiO2 Ratio Sepsis Recent Fever Within 48 Hours Sepsis New/Unexplained Change in Mental Status Sepsis Action Taken by Nursing 08/20/25 18:12 08/20/25 18:12 08/20/25 18:15 Temperature Temperature Source Pulse Rate 109 H 115 H Pulse Rate from SpO2 Sensor 110 H 112 H Respiratory Rate 31 H 38 H Respiratory Effort / Characteristics Respiratory Depth Respiratory Pattern Blood Pressure 138/99 Blood Pressure Mean 120 Pulse Oximetry 91 91 Oxygen Delivery Method Oxygen Flow Rate Fraction of Inspired Oxygen SaO2/FiO2 Ratio Sepsis Recent Fever Within 48 Hours Sepsis New/Unexplained Change in Mental Status Sepsis Action Taken by Nursing 08/20/25 18:15 08/20/25 18:18 08/20/25 18:21 Temperature Temperature Source Pulse Rate 106 H 110 H Pulse Rate from SpO2 Sensor 110 H 113 H Respiratory Rate 37 H 36 H Respiratory Effort / Characteristics Respiratory Depth Respiratory Pattern Blood Pressure 159/95 H 159/95 H 153/88 H Blood Pressure Mean 131 116 109 Pulse Oximetry 90 92 Oxygen Delivery Method Oxygen Flow Rate Fraction of Inspired Oxygen SaO2/FiO2 Ratio Sepsis Recent Fever Within 48 Hours Sepsis New/Unexplained Change in Mental Status Sepsis Action Taken by Nursing 08/20/25 18:24 08/20/25 18:27 08/20/25 18:33 Temperature Temperature Source Pulse Rate 106 H 104 H 106 H Pulse Rate from SpO2 Sensor 104 H 102 H 110 H Respiratory Rate 36 H 38 H 31 H Respiratory Effort / Characteristics Respiratory Depth Respiratory Pattern Blood Pressure 162/87 H 134/86 138/93 Blood Pressure Mean 112 102 108 Pulse Oximetry 91 91 91 Oxygen Delivery Method Oxygen Flow Rate Fraction of Inspired Oxygen SaO2/FiO2 Ratio Sepsis Recent Fever Within 48 Hours Sepsis New/Unexplained Change in Mental Status Sepsis Action Taken by Nursing 08/20/25 18:42 08/20/25 18:45 08/20/25 18:48 Temperature Temperature Source Pulse Rate 132 H 118 H 103 H Pulse Rate from SpO2 Sensor 126 H 125 H 111 H Respiratory Rate 22 35 H 31 H Respiratory Effort / Characteristics Respiratory Depth Respiratory Pattern Blood Pressure 173/88 H 165/91 H 165/91 H Blood Pressure Mean 116 115 115 Pulse Oximetry 89 L 88 L 92 Oxygen Delivery Method Oxygen Flow Rate Fraction of Inspired Oxygen SaO2/FiO2 Ratio Sepsis Recent Fever Within 48 Hours Sepsis New/Unexplained Change in Mental Status Sepsis Action Taken by Nursing 08/20/25 18:51 08/20/25 18:57 Temperature Temperature Source Pulse Rate 111 H 116 H Pulse Rate from SpO2 Sensor 119 H 130 H Respiratory Rate 29 H 37 H Respiratory Effort / Characteristics Respiratory Depth Respiratory Pattern Blood Pressure 136/90 144/108 H Blood Pressure Mean 105 120 Pulse Oximetry 91 92 Oxygen Delivery Method Oxygen Flow Rate Fraction of Inspired Oxygen SaO2/FiO2 Ratio Sepsis Recent Fever Within 48 Hours Sepsis New/Unexplained Change in Mental Status Sepsis Action Taken by Nursing Laboratory Data 08/20/25 17:20 08/20/25 17:20 Lab Results 08/20/25 08/20/25 08/20/25 Range/Units 17:20 17:23 18:57 WBC 10.69 (4.8-10.8) K/ul RBC 4.44 (4.20-5.40) M/uL Hgb 13.9 (12.0-16.0) g/dL POC Hgb 15.0 (12.0-16.0) g/dl Hct 43.0 (37.0-47.0) % POC Hct 44 (37-47) % MCV 96.8 (80.0-100.0) fL MCH 31.3 (25.0-34.0) pg MCHC 32.3 (32.0-36.0) g/dL RDW Std Deviation 51.4 H (36.4-46.3) fL RDW Coeff of Rosy 14.5 (11.5-14.5) % Plt Count 291 (130-400) K/uL MPV 9.5 (9.4-12.4) fL Immature Gran % (Auto) 0.4 % Neut % (Auto) 67.6 % Lymph % (Auto) 21.7 % [place] % (Auto) 6.0 % Eos % (Auto) 3.6 % Baso % (Auto) 0.7 % Neut # (Auto) 7.23 H (1.40-6.50) K/uL Lymph # (Auto) 2.32 (1.20-3.40) K/uL [place] # (Auto) 0.64 H (0.11-0.59) K/uL Eos # (Auto) 0.38 (0.00-0.50) K/uL Baso # (Auto) 0.08 (0.00-0.20) K/uL Immature Gran # (Auto) 0.04 (0.01-0.20) K/uL VBG pH 7.30 L (7.36-7.41) VBG pCO2 47 (38-50) mmHg VBG pO2 47 mmHg VBG HCO3 23 mmol/L VBG O2 Saturation 73.3 % VBG Base Excess -3.6 mEq/L POC Sodium 143 (135-144) mmol/L Sodium 140 (136-145) mmol/L POC Potassium 3.3 (3.3-5.0) mmol/L Potassium 3.4 L (3.5-5.1) mmol/L POC Chloride 105 (101-112) mmol/L Chloride 105 (98-107) mmol/L Carbon Dioxide 23 (21-32) mmol/L POC Total CO2 23 L (24-31) mmol/L Anion Gap 12 H (3-11) POC Anion Gap 20.0 (16-25) mmol/L POC BUN 28 H (7-18) mg/dl BUN 27 H (6-23) mg/dl Creatinine 1.27 H (0.6-1.2) mg/dl POC Creatinine 1.4 H (0.6-1.3) mg/dl Est Cr Clr Drug Dosing Not Reportable eGFR 42.22 BUN/Creatinine Ratio 21.3 H (10-20) Glucose 171 H (70-99(Fasting)) mg/dl POC Glucose (other) 168 H (70-99) mg/dl Lactate 1.7 (0.4-2.0) mmol/L Calcium 10.0 (8.6-10.3) mg/dl POC Ioniz Calcium Emeli 1.22 (1.12-1.32) mmol/l Total Bilirubin 1.4 H (0.2-1.0) mg/dl AST 41 H (13-39) U/L ALT 25 (7-52) U/L Alkaline Phosphatase 105 H (34-104) U/L Troponin I High Sens 31.0 H (0-14) pg/ml B-Natriuretic Peptide 771 H (0-100) pg/ml Total Protein 8.6 H (6.0-8.3) gm/dl Albumin 4.4 (3.4-5.0) gm/dl Globulin 4.2 H (2.5-4.0) gm/dl Albumin/Globulin Ratio 1.0 (0.9-2) Lipase 17 (11-82) U/L Administered Medications Nitroglycerin/Dextrose (Nitroglycerin/D5w 100 Mcg/Ml) 250 mls @ 18 mls/hr IV .[id number] [facility]; Protocol Stop: 09/19/25 17:29 Last Titration: 08/20/25 18:26 Dose: 30 mcg/min, 18 mls/hr Documented By: akv Titration: 08/20/25 18:15 Dose: 25 mcg/min, 15 mls/hr Documented By: akv Titration: 08/20/25 18:06 Dose: 20 mcg/min, 12 mls/hr Documented By: akv Titration: 08/20/25 17:57 Dose: 15 mcg/min, 9 mls/hr Documented By: akv Titration: 08/20/25 17:50 Dose: 10 mcg/min, 6 mls/hr Documented By: akv Admin: 08/20/25 17:43 Dose: 5 mcg/min, 3 mls/hr Documented By: brennen Co-signed By: QUIQUE Nitroglycerin (Nitroglycerin 2% Ointment 30gm Tube) 2 inch EXT Q6H [place] Stop: 09/19/25 17:29 Last Admin: 08/20/25 17:20 Dose: 2 inch Documented By: MR Discontinued Medications Furosemide (Furosemide 40 Mg/4 Ml Vial) 40 mg IV NOW STA Stop: 08/20/25 17:28 Last Admin: 08/20/25 17:33 Dose: 40 mg Documented By: QUIQUE Miscellaneous (Stat Iv Infusion Titration Per Protocol) 1 each N/A NOW STA Stop: 08/20/25 17:21 Last Admin: 08/20/25 18:05 Dose: Not Given Documented By: UQIQUE Nitroglycerin (Nitroglycerin 2% Ointment 30gm Tube) Confirm Administered Dose 18 inch EXT .STK-MED ONE Stop: 08/20/25 17:18 Last Admin: 08/20/25 17:30 Dose: Not Given Documented By: QUIQUE Nitroglycerin (Nitroglycerin Sl 0.4 Mg/Tab Tab) Confirm Administered Dose 0.4 mg .ROUTE .STK-MED ONE Stop: 08/20/25 17:18 Last Admin: 08/20/25 17:20 Dose: 0.4 mg Documented By: MR Imaging Data Radiologist's Impression: Chest X-Ray 08/20/25 17:03 Clinical History: Chest pain and shortness of breath Technique: A frontal view of the chest was obtained Findings: There are alveolar opacities in the left lung, concerning for pneumonia. The heart is mildly enlarged. No definite pleural effusion or pneumothorax is seen. There is suspected mild pulmonary edema No fracture is noted. Sternal wires are present. There are mediastinal and left axillary surgical clips Impression: 1. Suspected left lung pneumonia 2. Cardiomegaly and mild pulmonary edema ACT 112: Positive. There are findings on this exam that require communication between the performing entity and the patient following Patient Test Result Information Act ([place] ACT 112) guidelines. Electronically signed by Gigi Humphreys 08-20-2025 6:41 PM Discharge Plan Visit Data Chief Complaint: Shortness of Breath/Dyspnea Stated Complaint: DIFF BREATHING, SURGERY COMPLICATIONS ED Provider: Yonis Mohr Discharge Problem: Acute hypoxemic respiratory failure, Acute exacerbation of CHF (congestive heart failure), Flash pulmonary edema Condition: Critical Forms Stand Alone Forms: My [facility] Prescriptions Prescriptions: No Action Eliquis 5 mg tablet 5 mg PO BID losartan 50 mg tablet 50 mg PO BID amlodipine 5 mg tablet 5 mg PO QAM rosuvastatin [Crestor] 5 mg tablet 5 mg PO HS esomeprazole magnesium [Nexium] 20 mg capsule,delayed release(DR/EC) 20 mg PO QAM aspirin [Adult Low Dose Aspirin] 81 mg tablet,delayed release (DR/EC) 81 mg PO HS omega 2-oue-fdy-fish oil [Fish Oil] 1,000 mg (120 mg-180 mg) capsule 1 cap PO BID multivitamin Tablet 1 tab PO QAM alendronate [Fosamax] 70 mg Tablet 70 mg PO Q7D Rx Instructions: SATURDAYS furosemide 20 mg Tablet 40 mg PO DAILY metoprolol succinate 50 mg tablet extended release 24 hr 50 mg PO QPM sulfamethoxazole-trimethoprim [Bactrim DS] 800-160 mg Tablet 1 tab PO ONCE Rx Instructions: TO TAKE AFTER SURGERY, AFTER SHE HAS EATEN THE 1ST MEALS. ropinirole 0.5 mg tablet 0.5 mg PO HS cefdinir 300 mg capsule 300 mg PO BID Rx Instructions: ORDERED 08/20/25 FOR 7 DAYS, DID NOT START YET amoxicillin 500 mg Capsule 2,000 mg PO DIRECTED PRN (Reason: 1 HR PRIOR TO DENTAL PROCEDURES) levothyroxine 75 mcg tablet 75 mcg PO DAILYBB polyethylene glycol 3350 [Miralax] 17 gram/dose Powder 17 g PO DAILY PRN (Reason: Constipation) estradiol 0.01 % (0.1 mg/gram) cream 1 applic VAGINAL DIRECTED cranberry extract [Cranberry Concentrate] 500 mg Capsule 500 mg PO BID Rx Instructions: administer with meals mirabegron [Myrbetriq] 50 mg tablet extended release 24 hr 50 mg PO QAM magnesium oxide 400 mg magnesium Tablet 400 mg PO HS Referrals Referrals: Ynes Ricardo DO [Outside Practitioners] - Discharge Problem: Acute exacerbation of CHF (congestive heart failure) Qualifiers: Heart failure type: unspecified Qualified Code(s): I50.9 - Heart failure, unspecified
[2025-08-20] MEDS: NITROGLYCERIN SL 0.4 MG/TAB TAB ONE (17:20)
[2025-08-20] MEDS: NITROGLYCERIN 2% OINTMENT 30GM TUBE EXT SCH (17:20)
[2025-08-20 17:28] LABS: Base Excess VBG -3.6 mEq/L; HCO3 VBG 23 mmol/L; Oxygen Saturation VBG 73.3 %; PCO2 VBG 47 mmHg (38-50); PO2 VBG 47 mmHg; pH VBG 7.30 (7.36-7.41)
[2025-08-20] MEDS: NITROGLYCERIN 2% OINTMENT 30GM TUBE EXT ONE (17:30)
[2025-08-20 17:32] LABS: Hematocrit (blood only) 43.0 % (37.0-47.0); Hemoglobin 13.9 g/dL (12.0-16.0); Immature Granulocytes # (auto) 0.04 K/uL (0.01-0.20); Immature Granulocytes % (auto) 0.4 %; Mean Corpuscular Hemoglobin 31.3 pg (25.0-34.0); Mean Corpuscular Volume 96.8 fL (80.0-100.0); Platelet Count 291 K/uL (130-400); RDW Standard Deviation 51.4 fL (36.4-46.3); Red Blood Count 4.44 M/uL (4.20-5.40); White Blood Count 10.69 K/ul (4.8-10.8)
[2025-08-20] MEDS: FUROSEMIDE 40 MG/4 ML VIAL IV STA (17:33)
[2025-08-20] MEDS: NITROGLYCERIN/D5W 100MCG/ML 250 ML IV SCH (17:43)
[2025-08-20 17:49] LABS: Alanine Aminotransferase 25 U/L (7-52); Albumin Globulin Ratio 1.0 (0.9-2); Albumin Level 4.4 gm/dl (3.4-5.0); Alkaline Phosphatase 105 U/L (34-104); Anion Gap 12 (3-11); Bilirubin,Total 1.4 mg/dl (0.2-1.0); Blood Urea Nitrogen 27 mg/dl (6-23); Calcium 10.0 mg/dl (8.6-10.3); Carbon Dioxide 23 mmol/L (21-32); Chloride 105 mmol/L (98-107); Globulin 4.2 gm/dl (2.5-4.0); Glucose 171 mg/dl (70-99(Fasting)); Lipase 17 U/L (11-82); Potassium 3.4 mmol/L (3.5-5.1); Sodium 140 mmol/L (136-145); Total Protein 8.6 gm/dl (6.0-8.3)
[2025-08-20] MEDS: STAT IV Infusion **Titration per Protocol STA (18:05)
--- NOTE | 2025-08-20 18:07 | History & Physical Report ---
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%) #Moderate Aortic Valve Stenosis #Moderate Tricuspid/Mitral Valve Stenosis #Elevated HS Troponin -patient with significant pulmonary edema requiring Bipap -hypertensive emergency likely cause of flash pulmonary edema, does not look significantly fluid overloaded on exam -slightly elevated HS troponin likely in setting of hypoxia Plan: -start 40 IV bid lasix given pulmonary edema -continue bipap -continue nitro drip, overlap with home PO medications to get off of drip -check echo -trend troponins -frequent reevaluation of fluid status given preload dependence in moderate #CAD s/p CABG -check A1c, lipids, TSH -continue statin, aspirin #Paroxysmal Atrial Fibrillation -elevated rates likely compensatory at this time Plan: -continue metoprolol, aspirin, eliquis Pulmonary: #Acute Hypoxic Respiratory Failure -2/2 flash pulmonary edema -consideration for overlying bacterial pneumonia or viral illness less likely given acute presentation -patient on eliquis making PE less likely Plan: -plan as above -start IS, flutter valve -continue bipap -check biofire, sputum culture GI: #GERD -start protonix 20 daily Renal: #JANICE on CKD Stage 3b -mild, likely 2/2 fluid overload Plan: -check BMP in AM ID: #SIRS Criteria -met by tachypnea, tachycardia -unlikely to be infectious but on differential Plan: -check lactic acid -check blood cultures x2 -give zosyn x1 given SIRS criteria without source, unlikely to need tomorrow Endocrine: #Hypothyroidism -continue levothyroxine from home #RLS -continue ropinirole #Osteoporosis -hold home bisphosphonate for now Ortho: #Lumbar Spinal Stenosis -check PT/OT I spent a total of 80 minutes in direct patient care, including [id number] time with the patient and/or family, reviewing medical records, ordering and reviewing diagnostic tests, and coordinating care with other healthcare providers. This time includes: history taking, physical examination, medical decision making, counseling, ECG interpretation, imaging interpretation, lab interpretation, orders, and education, excluding time spent in the performance of separately billed services. 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 She has not been admitted to [facility] since 2022 but has many hospitalizations at other institutions for decompensated HF. In the ED, started on nitro drip and paste for hypertensive emergency, given lasix, admitted to medicine for further workup. Patient seen and examined at bedside. Family present as well. Patient dyspnea noted, unable to give much hx. Daughter provided hx. Patient has been feeling slightly more SOB over the past few days, but doing well overall. Able to do most ADLs but limited in walking distance due to dyspnea. Doing well this morning, felt better than past few days. Was anxious about procedure today, cystoscopy for frequent UTIs. No chest pain, nausea, vomiting, diarrhea, other associated symptoms. Has had frequent hospitalizations for decompensated HF over the past year. No current tobacco use, no alcohol use, no drug use, full code per discussion with family. Allergies Allergy/AdvReac Type Severity Reaction Status Date / Time gabapentin Allergy Intermediate SWELLING Verified 08/20/25 18:05 OF HANDS & ANKLES lovastatin AdvReac Intermediate MUSCLE Verified 08/20/25 18:05 ACHES nitrofurantoin AdvReac Intermediate GLOSSITIS Verified 08/20/25 18:05 [From Macrobid] PER [facility] Home Medications Medication Instructions Recorded Confirmed Type amlodipine 5 mg tablet 5 mg PO QAM 03/31/22 08/20/25 History apixaban 5 mg tablet (Eliquis) 5 mg PO BID 03/31/22 08/20/25 History aspirin 81 mg tablet,delayed 81 mg PO HS 03/31/22 08/20/25 History release (Adult Low Dose Aspirin) esomeprazole magnesium 20 mg 20 mg PO QAM 03/31/22 08/20/25 History capsule,delayed release (Nexium) losartan 50 mg tablet 50 mg PO BID 03/31/22 08/20/25 History multivitamin 1 tab PO QAM 03/31/22 08/20/25 History omega 2-rdc-azz-fish oil 1,000 mg 1 cap PO BID 03/31/22 08/20/25 History (120 mg-180 mg) capsule (Fish Oil) rosuvastatin 5 mg tablet (Crestor) 5 mg PO HS 03/31/22 08/20/25 History alendronate 70 mg tablet (Fosamax) 70 mg PO Q7D 05/10/22 08/20/25 History furosemide 20 mg tablet 40 mg PO DAILY 09/30/22 08/20/25 History amoxicillin 500 mg capsule 2,000 mg PO DIRECTED PRN 1 HR 08/20/25 08/20/25 History PRIOR TO DENTAL PROCEDURES cefdinir 300 mg capsule 300 mg PO BID 08/20/25 08/20/25 History cranberry extract 500 mg capsule 500 mg PO BID 08/20/25 08/20/25 History (Cranberry Concentrate) estradiol 0.01% (0.1 mg/gram) 1 applic vaginal DIRECTED 08/20/25 08/20/25 History vaginal cream levothyroxine 75 mcg tablet 75 mcg PO DAILYBB 08/20/25 08/20/25 History magnesium oxide 400 mg PO HS 08/20/25 08/20/25 History metoprolol succinate 50 mg 50 mg PO QPM 08/20/25 08/20/25 History tablet,extended release 24 hr mirabegron 50 mg tablet,extended 50 mg PO QAM 08/20/25 08/20/25 History release 24 hr (Myrbetriq) polyethylene glycol 3350 17 17 g PO DAILY PRN Constipation 08/20/25 08/20/25 History gram/dose oral powder (Miralax) ropinirole 0.5 mg tablet 0.5 mg PO HS 08/20/25 08/20/25 History sulfamethoxazole 800 1 tab PO ONCE 08/20/25 08/20/25 History mg-trimethoprim 160 mg tablet (Bactrim DS) Past Med/Surg History Problem List Acute exacerbation of CHF (congestive heart failure) (Acute) Acute hypoxemic respiratory failure (Acute) Heart failure, systolic, with acute decompensation Flash pulmonary edema (Acute) Lumbar stenosis with neurogenic claudication Scoliosis of lumbar region due to degenerative disease of spine in adult Disc degeneration, lumbosacral Degenerative spondylolisthesis Low back pain potentially associated with radiculopathy Status post right knee replacement (~11/2022) Encounter for pre-operative examination Status post left knee replacement Medical History (Updated 08/20/25 @ 19:16 by Yonis Mohr DO) Aortic stenosis Moderate per 06/03/22 ECHO History of urinary incontinence Carotid artery stenosis S/p right carotid endarterectomy (2002) Limb alert care status pt states has had BP/IVs in LUE since L breast surgery but has chronic swelling in that arm Peripheral edema 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 LAD: mid 100% occlusion, diagonal branch 40%, WALKER graft to LAD patent. Cx proximal 85%, mid 10% and stenting site patent-stent placed to Cx during cath. RCA: mid long 95% and distal 100%. Prediabetes History of blood transfusion 2001- s/p CABG On anticoagulant therapy GERD (gastroesophageal reflux disease) controlled, stable per pt Anxiety occasionally Myocardial Infarction 11/2001 treated with open heart surgery [place] History of cardioversion ~ at [facility]. Breast cancer (~2001) Left breast cancer (lumpectomy)- s/p XRT High cholesterol Hypothyroid A-fib Hx cardioversion - currently managed with medication and Eliquis. Follows with Dr Schaefer ([facility]) Surgical History History of right-sided carotid endarterectomy History of coronary artery bypass graft x 1 History of colonoscopy History of cardiac cath ~15-20 years ago, [place] History of surgical removal of left nipple Hx of lumpectomy left Hx of heart artery stent (~2003) (between 15 and 20 years ago) total x2 stents at [facility] Family History Other Heart disease No family history of adverse response to anesthesia Social History Smoking Status: Never smoker Second Hand Exposure: Yes (not for many years); Do You Dip or Chew Tobacco: No; Hx Alcohol Use: Yes Alcohol type: wine Hx Substance Use: No Preferred Language: Bengali Communication Ability: Effective Strawberry Grower Required: No Beliefs That Will Affect Care: None marital status: / Current Living Situation: Alone Current Living Situation Comment: lives at [facility] in [place] Feels Safe at Home: Yes Assistive Devices: Walker Review of Systems Review of Systems: -negative unless listed above Physical Exam Physical Exam: Gen: A&O 3, dyspnea noted HEENT: NCAT, EOMI, not icteric. External ears normal. No rhinorrhea. Moist mucous membranes. Neck: Supple, full range of motion, no observable masses, No meningeal sign. Lungs: crackles, wheezing, cough all noted throughout all lung martinez CV: irregularly irregular Abdomen: Soft, nondistended, No rebound tenderness. MSK: No joint swelling, no redness. Skin: No rashes, petechiae, lesions. Normal color per patient. Neuro: Normal Gait, Grossly intact. Psych: Appropriate for situation. Results & Data Results & Data Vital Signs (Past 12 Hours) Vital Signs Temp Pulse Resp BP Pulse Ox O2 Del Method O2 Flow Rate 08/20/25 18:00 111 H 32 H 162/116 H 89 L BiPAP 08/20/25 17:57 110 H 35 H 91 BiPAP 08/20/25 17:54 93 H 32 H 167/102 H 89 L 08/20/25 17:51 93 H 24 167/102 H 91 08/20/25 17:45 95 H 38 H 173/138 H 91 08/20/25 17:36 98 H 32 H 180/97 H 90 08/20/25 17:31 109 H 30 H 91 08/20/25 17:30 110 H 31 H 162/107 H 93 08/20/25 17:27 98 H 34 H 162/107 H 92 08/20/25 17:27 97 H 08/20/25 17:24 101 H 27 H 145/98 H 89 L 08/20/25 16:58 92 Nasal Cannula 4 08/20/25 16:57 36.3 C L 112 H 24 160/82 H 83 L Room Air FiO2 08/20/25 18:00 100 08/20/25 17:57 100 08/20/25 17:54 08/20/25 17:51 08/20/25 17:45 08/20/25 17:36 08/20/25 17:31 100 08/20/25 17:30 08/20/25 17:27 08/20/25 17:27 08/20/25 17:24 08/20/25 16:58 08/20/25 16:57 Laboratory Results -personally reviewed, K of 3.4 replenished, creatinine slightly elevated above b aseline at 1.27 likely 2/2 fluid overload, elevated BNP in setting of decompensated HF, gamma gap noted of unclear etiology Medications Administered Nitroglycerin/Dextrose (Nitroglycerin/D5w 100 Mcg/Ml) 250 mls @ 18 mls/hr IV .[id number] [facility]; Protocol Stop: 09/19/25 17:29 Last Titration: 08/20/25 18:26 Dose: 30 mcg/min, 18 mls/hr Documented By: akv Titration: 08/20/25 18:15 Dose: 25 mcg/min, 15 mls/hr Documented By: akv Titration: 08/20/25 18:06 Dose: 20 mcg/min, 12 mls/hr Documented By: akv Titration: 08/20/25 17:57 Dose: 15 mcg/min, 9 mls/hr Documented By: akv Titration: 08/20/25 17:50 Dose: 10 mcg/min, 6 mls/hr Documented By: akv Admin: 08/20/25 17:43 Dose: 5 mcg/min, 3 mls/hr Documented By: akv Co-signed By: QUIQUE Nitroglycerin (Nitroglycerin 2% Ointment 30gm Tube) 2 inch EXT Q6H [place] Stop: 09/19/25 17:29 Last Admin: 08/20/25 17:20 Dose: 2 inch Documented By: MR Code Status & VTE Plan Code Status -full code per patient, daughter
--- NOTE | 2025-08-20 18:42 | XRay Report ---
Clinical History: Chest pain and shortness of breath Technique: A frontal view of the chest was obtained Findings: There are alveolar opacities in the left lung, concerning for pneumonia. The heart is mildly enlarged. No definite pleural effusion or pneumothorax is seen. There is suspected mild pulmonary edema No fracture is noted. Sternal wires are present. There are mediastinal and left axillary surgical clips Impression: 1. Suspected left lung pneumonia 2. Cardiomegaly and mild pulmonary edema ACT 112: Positive. There are findings on this exam that require communication between the performing entity and the patient following Patient Test Result Information Act ([place] ACT 112) guidelines. Electronically signed by Gigi Humphreys 08-20-2025 6:41 PM
--- NOTE | 2025-08-20 19:04 | Critical Care Consultation ---
<Statement entered by Gab Macias MD - 08/21/25 08:14> I, Gab Macias MD, reviewed the physical exam, assessment, plan, and management as documented by the Advanced Care Provider DELLA Steele, for this patient encounter. I discussed the case with them, confirmed the findings, and I concur with the proposed plan of care. I was available for consultation throughout the encounter and provided guidance as needed. Date of Consultation August 20, 2025 Assessment & Plan (1) Acute hypoxic respiratory failure: (2) Hypertensive emergency: (3) Acute exacerbation of CHF (congestive heart failure): Plan Reason Critically Ill: Acute hypoxic respiratory failure likely secondary to acute pulmonary edema in setting of hypertensive emergency- SCAPE type picutre. Requiring NIPPV and vasodilatory medicaitons. Neuro - No acute needs CAM ICU: NEGATIVE Cardiac - Sympathetic crashing acute pulmonary edema (SCAPE) in setting of HF and hypertensive emergency - Patient appears to have had rapid progression of dyspnea secondary to pul monary edema following a uncomfortable urologic procedure as well as patient reporting anxiety through procedure and worsening after feeling short of breath, this was associated with hypertension 180s/100s. Appears most consistent with SCAPE type picture. - Support hypoxia with BIPAP/CPAP - BP lowering with vasodilators- NTG or Cardene and once at goal can transition to orals with IV back up if needed - Diurese aggressive tonight- replete electrolytes - ECHO to evaluate valves- with LT>RT infiltrate- reportedly her MV is non- operable - Follow volume status closely with hx of - ECG with AFIB with left axis aberrancy- ECG without obvious STEMI - Afib- continue with Eliquis Respiratory - Acute hypoxic respiratory failure - Likely in setting of above- pulmonary edema appears more likely than infectious at this time - CPAP or BiPAP for hypoxia- gradually increase goal SPO2 >92% GI - No acute needs - NPO while on NIPPV RENAL/LYTES - CKD - POSTING SPECIALIST 1.21- last we have on our system is from 2021 - follow with daily BMP and diuretic therapy - Replete electrolytes per ICU protocol - No acute needs - Ayala to gravity while being diuresed until respiratory status improved and can tolerate out of bed ENDO - No acute needs - HX of hypothyroidism- TSH pending HEME - No acute needs ID - Follow clinically in relation to pulmonary status, at this time I feel that infectious cause is less likely secondary to acuteness and feeling well - Agree with respiratory viral panel which is pending LINES/IV ACCESS - Lucy MENDEZ Continue use of these lines DVT PROPHYLAXIS - Lei ABRAHAM DISPO: ICU until pulmonary and hemodynamic status is proven stable and declining support in both I have personally spent 55 minutes of critical care time in the direct management of this patient. This is a life/limb threatening event. This includes time spent evaluating patient, direct bedside care, chart review, placing orders, interpretation of diagnostic studies, discussion with consultants, patient, and family members, as well as other required patient management activities. This time is exclusive of all separately billable procedures, and teaching time and separate from and in addition to any other critical care service time. Thank you for allowing us to participate in the care of this patient. Please refer to my attending physician's documentation for any further recommendations. History of Present Illness Reason for Consultation: hypoxic respiratory failure Requesting Physician: Kevan Davila MD Attending Physician: Kevan Davila MD History of Present Illness 84 YOF with medical history of: CAD (CABG 2003 WALKER/LAD) stents to LCX, hypothyroidism, PVD, HLD, Afib on Eliquis, GERD, HTN, s/p CEA, Illiac stent, CKDIII, , MR. Patient was brought to the ER today by her daughters following urology appt. at [facility] for difficulty breathing. Daughters report that patient has been in her normal state of health and actually report that she felt she was doing well as her weights were down and her breathing has felt better. Today following her urology appointment her daughter reports that she came out of the office and started to feel short of breath and after resting, she was able to catch her breath and get out of the office building and to the car with a period of stopping. When she got in the car, she had another period of feeling short of breath, but this time she was unable to catch her breath and just got worse. In the ER she arrived tachycardic, hypertensive (180s/100s), and hypoxic, she was felt to be with acute pulmonary edema with CXR and physical exam. Patient was initiated with Nitropaste, Nitroglycerine infusion, and Lasix 40mg IV as well as requiring BiPAP for hypoxia. Following above interventions, patient respiratory status improved with reduction in RR, HR decreased, and BP lowered to the 130s. She states that she feels better than she did when she came in, however still feels short of breath. The patient will be brought to the ICU for continued monitoring of hemodynamics, diuresing, further control of BP and support of respiratory status. CODE: FULL Allergies Allergy/AdvReac Type Severity Reaction Status Date / Time gabapentin Allergy Intermediate SWELLING Verified 08/20/25 18:05 OF HANDS & ANKLES lovastatin AdvReac Intermediate MUSCLE Verified 08/20/25 18:05 ACHES nitrofurantoin AdvReac Intermediate GLOSSITIS Verified 08/20/25 18:05 [From Macrobid] PER [facility] Home Medications Medication Instructions Recorded Confirmed Type amlodipine 5 mg tablet 5 mg PO QAM 03/31/22 08/20/25 History apixaban 5 mg tablet (Eliquis) 5 mg PO BID 03/31/22 08/20/25 History aspirin 81 mg tablet,delayed 81 mg PO HS 03/31/22 08/20/25 History release (Adult Low Dose Aspirin) esomeprazole magnesium 20 mg 20 mg PO QAM 03/31/22 08/20/25 History capsule,delayed release (Nexium) losartan 50 mg tablet 50 mg PO BID 03/31/22 08/20/25 History multivitamin 1 tab PO QAM 03/31/22 08/20/25 History omega 2-twn-yvr-fish oil 1,000 mg 1 cap PO BID 03/31/22 08/20/25 History (120 mg-180 mg) capsule (Fish Oil) rosuvastatin 5 mg tablet (Crestor) 5 mg PO HS 03/31/22 08/20/25 History alendronate 70 mg tablet (Fosamax) 70 mg PO Q7D 05/10/22 08/20/25 History furosemide 20 mg tablet 40 mg PO DAILY 09/30/22 08/20/25 History amoxicillin 500 mg capsule 2,000 mg PO DIRECTED PRN 1 HR 08/20/25 08/20/25 History PRIOR TO DENTAL PROCEDURES cefdinir 300 mg capsule 300 mg PO BID 08/20/25 08/20/25 History cranberry extract 500 mg capsule 500 mg PO BID 08/20/25 08/20/25 History (Cranberry Concentrate) estradiol 0.01% (0.1 mg/gram) 1 applic vaginal DIRECTED 08/20/25 08/20/25 History vaginal cream levothyroxine 75 mcg tablet 75 mcg PO DAILYBB 08/20/25 08/20/25 History magnesium oxide 400 mg PO HS 08/20/25 08/20/25 History metoprolol succinate 50 mg 50 mg PO QPM 08/20/25 08/20/25 History tablet,extended release 24 hr mirabegron 50 mg tablet,extended 50 mg PO QAM 08/20/25 08/20/25 History release 24 hr (Myrbetriq) polyethylene glycol 3350 17 17 g PO DAILY PRN Constipation 08/20/25 08/20/25 History gram/dose oral powder (Miralax) ropinirole 0.5 mg tablet 0.5 mg PO HS 08/20/25 08/20/25 History sulfamethoxazole 800 1 tab PO ONCE 08/20/25 08/20/25 History mg-trimethoprim 160 mg tablet (Bactrim DS) Patient History Medical History Aortic stenosis Moderate per 06/03/22 ECHO History of urinary incontinence Carotid artery stenosis S/p right carotid endarterectomy (2002) Limb alert care status pt states has had BP/IVs in LUE since L breast surgery but has chronic swelling in that arm Peripheral edema 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 LAD: mid 100% occlusion, diagonal branch 40%, WALKER graft to LAD patent. Cx proximal 85%, mid 10% and stenting site patent-stent placed to Cx during cath. RCA: mid long 95% and distal 100%. Prediabetes History of blood transfusion 2001- s/p CABG On anticoagulant therapy GERD (gastroesophageal reflux disease) controlled, stable per pt Anxiety occasionally Myocardial Infarction 11/2001 treated with open heart surgery [place] History of cardioversion ~ at [facility]. Breast cancer (~2001) Left breast cancer (lumpectomy)- s/p XRT High cholesterol Hypothyroid A-fib Hx cardioversion - currently managed with medication and Eliquis. Follows with Dr Schaefer ([facility]) Surgical History History of right-sided carotid endarterectomy History of coronary artery bypass graft x 1 History of colonoscopy History of cardiac cath ~15-20 years ago, [place] History of surgical removal of left nipple Hx of lumpectomy left Hx of heart artery stent (~2003) (between 15 and 20 years ago) total x2 stents at [facility] Family History Other Heart disease No family history of adverse response to anesthesia Social History Smoking Status: Former smoker Smoking End Date: 'about 22 years ago'; Second Hand Exposure: Yes (not for many years); Do You Dip or Chew Tobacco: No; Hx Alcohol Use: Yes Alcohol type: beer, wine and hard liquor Hx Substance Use: No Preferred Language: Urdu Communication Ability: Effective Mechanical Supervisor Required: No Beliefs That Will Affect Care: None marital status: / Current Living Situation: Alone Current Living Situation Comment: lives at [facility] in [place] Other Information That Helps Us Care for You: No Feels Safe at Home: Yes Safety Concerns: Feels Safe At This Time Assistive Devices: Glasses and Walker Review of Systems Review of Systems: REVIEW OF SYSTEMS: Constitutional: No fever, sweats or chills Eyes: No diplopia, no worsening or blurred vision ENT: normal hearing, no trouble swallowing Respiratory: (+) dyspnea with exertion, no orthopnea, No cough, sputum, Cardiovascular: (+) leg swelling, No chest pain, tightness or palpitations Abdomen: No pain, nausea, vomiting, diarrhea or constipation Musculoskeletal: No joint pain, calf pain, swelling Neurologic: No weakness, numbness/tingling, or balance problems Skin: No rash or itch Physical Exam Physical Exam: PHYSICAL EXAM: General: awake, alert, fatigued appearing Head: Normocephalic, atraumatic Neuro: AAO x 3, speech clear and appropriate, strength intact bilaterally 5/5, sensation intact and equal all extremities Chest: equal rise and fall of the chest, tachypneic with abdominal breathing, BIPAP in place Cardiac: Regular rate and rhythm, telemetry reviewed- Afib no ectopy, , skin warm dry, peripheral pulses +2 no JVD, systolic murmur across RSB/LSB, pitting edema to midshin bilaterally GI: NABS x 4 quadrants, soft, nontender to palpation, no rebound, guarding or tenderness : Ayala to gravity draining preeti colored urine Skin: no rash or erythema Results & Data Results & Data Vital Signs (Past 12 Hours) Vital Signs Temp Pulse Resp BP Pulse Ox O2 Del Method O2 Flow Rate 08/20/25 18:45 118 H 35 H 165/91 H 88 L 08/20/25 18:42 132 H 22 173/88 H 89 L 08/20/25 18:33 106 H 31 H 138/93 91 08/20/25 18:27 104 H 38 H 134/86 91 08/20/25 18:24 106 H 36 H 162/87 H 91 08/20/25 18:21 110 H 36 H 153/88 H 92 08/20/25 18:18 106 H 37 H 159/95 H 90 08/20/25 18:15 159/95 H 08/20/25 18:15 115 H 38 H 91 08/20/25 18:12 109 H 31 H 91 08/20/25 18:12 138/99 08/20/25 18:12 138/99 08/20/25 18:12 138/99 08/20/25 18:06 182/104 H 08/20/25 18:06 182/104 H 08/20/25 18:06 182/104 H 08/20/25 18:06 182/104 H 08/20/25 18:06 182/104 H 08/20/25 18:06 101 H 39 H 87 L 08/20/25 18:00 162/116 H 08/20/25 18:00 162/116 H 08/20/25 18:00 162/116 H 08/20/25 18:00 162/116 H 08/20/25 18:00 162/116 H 08/20/25 18:00 111 H 32 H 162/116 H 89 L BiPAP 08/20/25 17:57 110 H 35 H 91 BiPAP 08/20/25 17:54 93 H 32 H 167/102 H 89 L 08/20/25 17:51 93 H 24 167/102 H 91 08/20/25 17:45 95 H 38 H 173/138 H 91 08/20/25 17:36 98 H 32 H 180/97 H 90 08/20/25 17:31 109 H 30 H 91 08/20/25 17:30 110 H 31 H 162/107 H 93 08/20/25 17:27 98 H 34 H 162/107 H 92 08/20/25 17:27 97 H 08/20/25 17:24 101 H 27 H 145/98 H 89 L 08/20/25 16:58 92 Nasal Cannula 4 08/20/25 16:57 36.3 C L 112 H 24 160/82 H 83 L Room Air FiO2 08/20/25 18:45 08/20/25 18:42 08/20/25 18:33 08/20/25 18:27 08/20/25 18:24 08/20/25 18:21 08/20/25 18:18 08/20/25 18:15 08/20/25 18:15 08/20/25 18:12 08/20/25 18:12 08/20/25 18:12 08/20/25 18:12 08/20/25 18:06 08/20/25 18:06 08/20/25 18:06 08/20/25 18:06 08/20/25 18:06 08/20/25 18:06 08/20/25 18:00 08/20/25 18:00 08/20/25 18:00 08/20/25 18:00 08/20/25 18:00 08/20/25 18:00 100 08/20/25 17:57 100 08/20/25 17:54 08/20/25 17:51 08/20/25 17:45 08/20/25 17:36 08/20/25 17:31 100 08/20/25 17:30 08/20/25 17:27 08/20/25 17:27 08/20/25 17:24 08/20/25 16:58 08/20/25 16:57 Laboratory Results Abnormal lab results 08/20/25 08/20/25 Range/Units 17:20 17:23 RDW Std Deviation 51.4 H (36.4-46.3) fL Neut # (Auto) 7.23 H (1.40-6.50) K/uL [place] # (Auto) 0.64 H (0.11-0.59) K/uL VBG pH 7.30 L (7.36-7.41) Potassium 3.4 L (3.5-5.1) mmol/L POC Total CO2 23 L (24-31) mmol/L Anion Gap 12 H (3-11) POC BUN 28 H (7-18) mg/dl BUN 27 H (6-23) mg/dl Creatinine 1.27 H (0.6-1.2) mg/dl POC Creatinine 1.4 H (0.6-1.3) mg/dl BUN/Creatinine Ratio 21.3 H (10-20) Glucose 171 H (70-99(Fasting)) mg/dl POC Glucose (other) 168 H (70-99) mg/dl Total Bilirubin 1.4 H (0.2-1.0) mg/dl AST 41 H (13-39) U/L Alkaline Phosphatase 105 H (34-104) U/L Troponin I High Sens 31.0 H (0-14) pg/ml B-Natriuretic Peptide 771 H (0-100) pg/ml Total Protein 8.6 H (6.0-8.3) gm/dl Globulin 4.2 H (2.5-4.0) gm/dl Diagnostic Findings Chest X-Ray 08/20/25 17:03 Clinical History: Chest pain and shortness of breath Technique: A frontal view of the chest was obtained Findings: There are alveolar opacities in the left lung, concerning for pneumonia. The heart is mildly enlarged. No definite pleural effusion or pneumothorax is seen. There is suspected mild pulmonary edema No fracture is noted. Sternal wires are present. There are mediastinal and left axillary surgical clips Impression: 1. Suspected left lung pneumonia 2. Cardiomegaly and mild pulmonary edema ACT 112: Positive. There are findings on this exam that require communication between the performing entity and the patient following Patient Test Result Information Act ([place] ACT 112) guidelines. Electronically signed by Gigi Humphreys 08-20-2025 6:41 PM Medications Administered Home Medications amlodipine 5 mg tablet 5 mg PO QAM 03/31/22 [History Confirmed 08/20/25] apixaban 5 mg tablet (Eliquis) 5 mg PO BID 03/31/22 [History Confirmed 08/20/25] aspirin 81 mg tablet,delayed release (Adult Low Dose Aspirin) 81 mg PO HS 03/31/22 [History Confirmed 08/20/25] esomeprazole magnesium 20 mg capsule,delayed release (Nexium) 20 mg PO QAM 03/31/22 [History Confirmed 08/20/25] losartan 50 mg tablet 50 mg PO BID 03/31/22 [History Confirmed 08/20/25] multivitamin 1 tab PO QAM 03/31/22 [History Confirmed 08/20/25] omega 1-dxm-yts-fish oil 1,000 mg (120 mg-180 mg) capsule (Fish Oil) 1 cap PO BID 03/31/22 [History Confirmed 08/20/25] rosuvastatin 5 mg tablet (Crestor) 5 mg PO HS 03/31/22 [History Confirmed 08/20/25] alendronate 70 mg tablet (Fosamax) 70 mg PO Q7D 05/10/22 [History Confirmed 08/20/25] furosemide 20 mg tablet 40 mg PO DAILY 09/30/22 [History Confirmed 08/20/25] amoxicillin 500 mg capsule 2,000 mg PO DIRECTED PRN 1 HR PRIOR TO DENTAL PROCEDURES 08/20/25 [History Confirmed 08/20/25] cefdinir 300 mg capsule 300 mg PO BID 08/20/25 [History Confirmed 08/20/25] cranberry extract 500 mg capsule (Cranberry Concentrate) 500 mg PO BID 08/20/25 [History Confirmed 08/20/25] estradiol 0.01% (0.1 mg/gram) vaginal cream 1 applic vaginal DIRECTED 08/20/25 [History Confirmed 08/20/25] levothyroxine 75 mcg tablet 75 mcg PO DAILYBB 08/20/25 [History Confirmed 08/20/25] magnesium oxide 400 mg PO HS 08/20/25 [History Confirmed 08/20/25] metoprolol succinate 50 mg tablet,extended release 24 hr 50 mg PO QPM 08/20/25 [History Confirmed 08/20/25] mirabegron 50 mg tablet,extended release 24 hr (Myrbetriq) 50 mg PO QAM 08/20/25 [History Confirmed 08/20/25] polyethylene glycol 3350 17 gram/dose oral powder (Miralax) 17 g PO DAILY PRN Constipation 08/20/25 [History Confirmed 08/20/25] ropinirole 0.5 mg tablet 0.5 mg PO HS 08/20/25 [History Confirmed 08/20/25] sulfamethoxazole 800 mg-trimethoprim 160 mg tablet (Bactrim DS) 1 tab PO ONCE 08/20/25 [History Confirmed 08/20/25] Active Medications Furosemide (Furosemide 40 Mg/4 Ml Vial) 40 mg IV BID [facility] Stop: 09/19/25 20:59 Nitroglycerin/Dextrose (Nitroglycerin/D5w 100 Mcg/Ml) 250 mls @ 18 mls/hr IV .[id number] [place]; Protocol Stop: 09/19/25 17:29 Last Titration: 08/20/25 18:26 Dose: 30 mcg/min, 18 mls/hr Potassium Chloride (K Mick / Wtr) 10 meq in 100 mls @ 100 mls/hr IV Q1H [facility] Stop: 08/20/25 20:14 Last Admin: 08/20/25 19:11 Dose: 100 mls/hr Losartan Potassium (Losartan Potassium 50 Mg Tab) 50 mg PO QAM [facility] Stop: 09/20/25 08:59 Nitroglycerin (Nitroglycerin 2% Ointment 30gm Tube) 2 inch EXT Q6H [facility] Stop: 09/19/25 17:29 Last Admin: 08/20/25 17:20 Dose: 2 inch Pantoprazole Sodium (Pantoprazole 40 Mg Tab) 20 mg PO QAM [facility] Stop: 09/20/25 08:59 ECG Additional Comments: Atrial fibrillation Left axis deviation Non-specific intra-ventricular conduction block PossibleLateral infarct(cited on or [id number]) Abnormal ECG When compared with ECG [id number] 14:04, Atrial fibrillationhas replacedSinus rhythm Questionable change inQRS duration Questionable change in initial forces ofAnterolateral leads Coding Level of Care Code 03562 CRITICAL CARE 1ST 30-74M Diagnoses Acute hypoxic respiratory failure J96.01 Hypertensive emergency I16.1 Acute exacerbation of CHF (congestive heart failure) I50.9 Heart failure type: unspecified (3) Acute exacerbation of CHF (congestive heart failure) Heart failure type: unspecified Qualified Code(s): I50.9 - Heart failure, unspecified
[2025-08-20] MEDS: POTASSIUM CHLORIDE / WTR 10 MEQ/100 ML PLCT IV SCH (19:11)
[2025-08-20] MEDS: PIPERACILLIN/TAZOBACTAM 4.5 GM/100 ML BAG IV ONE (19:11)
[2025-08-20 19:51] LABS: Hemoglobin A1C 5.8 % (4.5-5.6)
[2025-08-20] MEDS: AZITHROMYCIN 250 MG TAB PO SCH (20:53)
[2025-08-20] MEDS: LOSARTAN POTASSIUM 50 MG TAB PO ONE (20:53)
[2025-08-20] MEDS: FUROSEMIDE 40 MG/4 ML VIAL IV SCH (20:54)
[2025-08-20] MEDS: LABETALOL HCL IV 5 MG/ML 20ML IV ONE (21:06)
[2025-08-20 22:00] LABS: Cholesterol 114.0 mg/dl (0-200); HDL Cholesterol 47.0 mg/dl; Triglycerides 76.0 mg/dl (0-150)
[2025-08-20 22:17] LABS: Thyroid Stimulating Hormone 5.873 uIu/ml (0.300-4.500)
[2025-08-20 22:55] LABS: T4 Free Thyroxine 1.66 ng/dl (0.61-1.60)
[2025-08-20 22:56] LABS: Chlamydia pneumoniae PCR Not Detected (NotDetected); Coronavirus 229E PCR Not Detected (NotDetected); Coronavirus CoV-2 (COVID19)PCR Not Detected (NotDetected); Coronavirus HKU1 PCR Not Detected (NotDetected); Coronavirus NL63 PCR Not Detected (NotDetected); Coronavirus OC43PCR Not Detected (NotDetected); Human Metapneumovirus PCR Not Detected (NotDetected); Parainfluenza Virus 1 PCR Not Detected (NotDetected); Parainfluenza Virus 2 PCR Not Detected (NotDetected); Parainfluenza Virus 3 PCR Not Detected (NotDetected); Parainfluenza Virus 4 PCR Not Detected (NotDetected); Respiratory Syncytial VirusPCR Not Detected (NotDetected); Rhinovirus/Enterovirus PCR Not Detected (NotDetected)
[2025-08-21] MEDS: PIPERACILLIN/TAZOBACTAM 4.5 GM/100 ML BAG IV SCH (02:51)
[2025-08-21 05:03] LABS: Anion Gap 10.0 (3-11); Blood Urea Nitrogen 29.0 mg/dl (6-23); Calcium 8.8 mg/dl (8.6-10.3); Carbon Dioxide 23.0 mmol/L (21-32); Chloride 108.0 mmol/L (98-107); Creatinine Clr Calc Pharmacy 36.6 ml/min; Glucose 142.0 mg/dl (70-99(Fasting)); Magnesium 1.9 mg/dl (1.7-2.4); Potassium 3.4 mmol/L (3.5-5.1); Sodium 141.0 mmol/L (136-145)
[2025-08-21 05:12] LABS: Hematocrit (blood only) 32.0 % (37.0-47.0); Hemoglobin 10.6 g/dL (12.0-16.0); Immature Granulocytes # (auto) 0.09 K/uL (0.01-0.20); Immature Granulocytes % (auto) 0.6 %; Mean Corpuscular Hemoglobin 31.5 pg (25.0-34.0); Mean Corpuscular Volume 95.0 fL (80.0-100.0); Platelet Count 230 K/uL (130-400); RDW Standard Deviation 49.1 fL (36.4-46.3); Red Blood Count 3.37 M/uL (4.20-5.40); White Blood Count 14.09 K/ul (4.8-10.8)
[2025-08-21] MEDS: POTASSIUM CHLORIDE 20 MEQ/15 ML UDC PO STA (05:42)
[2025-08-21] MEDS: LEVOTHYROXINE SODIUM 75 MCG TABLET PO SCH (06:32)
--- NOTE | 2025-08-21 07:44 | XRay Report ---
EXAM: XR chest 1V portable CLINICAL HISTORY: eval lung martinez TECHNIQUE: An X-ray image of the chest was obtained in the AP projection. COMPARISON: Prior chest X-ray dated 08/20/2025 was reviewed. FINDINGS: Pulmonary Parenchyma: Diffuse airspace opacification is noted involving both lungs, with prominent bronchovascular markings that are suggestive of evolving pulmonary edema or infection. Blunting of the right costophrenic angle, pleural effusion, and pleural thickening are present. Heart and Mediastinum: Cardiomegaly is seen. No mediastinal widening or masses are identified. No hilar or mediastinal lymphadenopathy is present. Bony Thorax: The bony thorax appears intact, without fractures or deformities. Sternotomy sutures are in situ. Multiple metallic clips are identified in the left axilla. Soft Tissues: The soft tissues overlying the chest wall are unremarkable. Chest leads are in situ. IMPRESSION: 1. Bilateral airspace opacification, suggestive of evolving pulmonary edema or infection. Clinical correlation is needed. 2. Blunting of the right costophrenic angle, pleural effusion, and pleural thickening are present. 3. Findings show a mild interval increase/more apparent compared to prior. Electronically signed by Jatinder Hannah 08-21-2025 07:44 AM
[2025-08-21] MEDS: APIXABAN 5 MG TABLET PO SCH (08:15)
[2025-08-21] MEDS: LOSARTAN POTASSIUM 50 MG TAB PO SCH (08:27)
--- NOTE | 2025-08-21 08:39 | Critical Care Progress Note ---
Date of Service August 21, 2025 Assessment & Plan (1) Acute hypoxic respiratory failure: Plan: * Initially suspected on basis of flash pulmonary edema * Cannot rule contribution from pneumonia in patient with fever, leukocytosis, and asymmetric infiltrates (more on left) (2) Hypertensive emergency: Plan: * Resolved (3) Acute exacerbation of CHF (congestive heart failure): Plan: * HFpEF with Aortic and Mitral stenosis and regurgitation (4) Fever: Plan I have personally spent 45 minutes of critical care time in the direct management of this patient. This is a life/limb threatening event. This includes time spent evaluating patient, direct bedside care, chart review, placing orders, interpretation of diagnostic studies, discussion with consultants, patient, and family members, as well as other required patient management activities. This time is exclusive of all separately billable procedures, and teaching time and separate from and in addition to any other critical care service time. Admission and Anticipated Discharge Date Admission Date: August 20, 2025 Subjective The patient is a very pleasant 84-year-old female who presented to the Emergency Department for sudden onset of severe shortness of breath following a urology appointment and cystoscopy earlier the same day. Her daughters, who provided most of the history at the bedside, reported that although she always experienced some baseline dyspnea, her symptoms worsened significantly after the procedure. She initially attempted to rest after leaving the office, but her shortness of breath persisted and intensified, prompting her family to bring her to the hospital. She denied chest pain. On arrival, she appeared ill and in moderate distress, able to answer only one- word questions. She was found to be hypoxic with an oxygen saturation of 80%, hypertensive with a systolic blood pressure of 200 mmHg, and tachycardic. Physical examination revealed bilateral rhonchi and pitting edema in the lower extremities. She was placed on a nonrebreather mask and subsequently transitioned to BiPAP with gradual improvement in oxygenation and respiratory distress. Initial laboratory studies showed mild hypokalemia, a creatinine of 1.27, mildly elevated troponin, and a BNP of 800. Chest X-ray demonstrated cephalization and bilateral pulmonary edema, worse on the left. She was treated with sublingual nitroglycerin, Nitropaste, a nitroglycerin drip, and IV Lasix. The patient was admitted to the ICU for acute hypoxic respiratory failure secondary to flash pulmonary edema in the setting of a hypertensive emergency, consistent with a SCAPE (sympathetic crashing acute pulmonary edema) picture. Her management included aggressive diuresis, vasodilator therapy, and noninv asive ventilatory support. Infectious etiologies were considered less likely given the acute presentation and absence of fever or infectious symptoms, but empiric antibiotics were administered due to SIRS criteria. 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 Note from 08/21/2025: The patient was doing well this am. She denied dyspnea or chest discomfort. Low-grade temperature of unclear etiology at this time, but cannot rule out pneumonia with asymmetric pulmonary infiltrates. Echo with biatrial enlargement, moderate and AI, moderate MS and severe MR. Home meds resumed. Review of Systems Review of Systems: All systems reviewed & are unremarkable except as noted in HPI & below Physical Exam Physical Exam: General: In no acute distress, using Oxygenvia nasal cannula. Skin: Warm and dry to touch. Noobvious lesions. Eyes: Anicteric.Noconjunctival hyperemia or exudates.No periorbital edema. ENT: No oral thrush. No oropharyngeal erythema or exudates. Modified-Mallampati 3 (Hard and soft palate seen). Neck: No palpable masses or adenopathy. Respiratory: Diffusely decreased breath sounds, no wheezing or crackles. ? rub over left hemithorax posteriorly. No use of accessory muscles and no prolonged exhalation. Cardiac: Distant sounds, regular rhythm, Grade 2-3 systolic murmur heard throughout the precordium, no gallops, no rubs; could not appreciate JV pulse elevation. GI: Soft, nontender. Extremities No clubbing,no cyanosis,no edema. Neuro: No gross motor deficits. Seems appropriate. No facial-droop. Speech is clear. Results & Data Results & Data Vital Signs (Past 12 Hours) Vital Signs Temp Pulse Pulse Resp BP Pulse Ox O2 Del Method 08/21/25 07:35 92 H 30 H 94 Nasal Cannula 08/21/25 07:24 88 31 H 99 08/21/25 07:13 BiPAP 08/21/25 07:00 115/62 08/21/25 07:00 38.1 C H 79 30 H 98 BiPAP 08/21/25 06:31 116/70 08/21/25 06:30 38.0 C H 92 H 29 H 97 BiPAP 08/21/25 06:00 128/66 08/21/25 05:59 38.0 C H 90 28 H 98 BiPAP 08/21/25 05:32 38.0 C H 87 26 H 98 BiPAP 08/21/25 05:30 109/55 L 08/21/25 05:29 38.0 C H 87 29 H 97 BiPAP 08/21/25 05:02 37.6 C H 83 28 H 95 BiPAP 08/21/25 05:00 108/50 L 08/21/25 04:59 37.3 C 82 29 H 95 BiPAP 08/21/25 04:32 37.8 C H 83 28 H 96 BiPAP 08/21/25 04:30 115/56 L 08/21/25 04:29 37.9 C H 90 29 H 96 BiPAP 08/21/25 04:00 86 28 H 128/68 96 BiPAP 08/21/25 03:30 117/55 L 08/21/25 03:30 38.0 C H 87 29 H 95 BiPAP 08/21/25 03:01 107/63 08/21/25 02:59 38.1 C H 89 31 H 95 BiPAP 08/21/25 02:31 113/56 L 08/21/25 02:30 38.2 C H 83 26 H 94 BiPAP 08/21/25 02:16 84 26 H 94 08/21/25 02:00 38.2 C H 96 H 29 H 135/66 97 BiPAP 08/21/25 02:00 90 27 H 135/66 95 BiPAP 08/21/25 02:00 38.2 C H 90 27 H 95 BiPAP 08/21/25 01:30 115/56 L 08/21/25 01:00 38.3 C H 91 H 25 H 97 BiPAP 08/21/25 01:00 38.2 C H 86 24 125/62 95 BiPAP 08/21/25 00:30 27 H 106/78 08/21/25 00:30 38.3 C H 95 H 27 H 96 BiPAP 08/21/25 00:00 107/59 L 08/20/25 23:39 102 H 08/20/25 23:30 38.2 C H 93 H 29 H 94 BiPAP 08/20/25 23:30 111/63 08/20/25 23:03 38.1 C H 100 H 26 H 94 BiPAP 08/20/25 23:02 100 H 30 H 110/64 95 BiPAP 08/20/25 23:01 95/59 L 08/20/25 23:00 38.0 C H 99 H 28 H 94 BiPAP 08/20/25 22:43 97 H 31 H 95 08/20/25 22:30 128/77 08/20/25 22:30 37.8 C H 98 H 32 H 98 BiPAP 08/20/25 22:00 37.8 C H 97 H 28 H 137/79 92 BiPAP 08/20/25 21:31 115/76 08/20/25 21:30 37.3 C 109 H 30 H 95 BiPAP 08/20/25 21:00 123/61 08/20/25 21:00 37.2 C 105 H 27 H 96 BiPAP O2 Flow Rate FiO2 08/21/25 07:35 5 08/21/25 07:24 40 08/21/25 07:13 08/21/25 07:00 08/21/25 07:00 50 08/21/25 06:31 08/21/25 06:30 50 08/21/25 06:00 08/21/25 05:59 50 08/21/25 05:32 50 08/21/25 05:30 08/21/25 05:29 50 08/21/25 05:02 50 08/21/25 05:00 08/21/25 04:59 50 08/21/25 04:32 50 08/21/25 04:30 08/21/25 04:29 50 08/21/25 04:00 50 08/21/25 03:30 08/21/25 03:30 50 08/21/25 03:01 08/21/25 02:59 50 08/21/25 02:31 08/21/25 02:30 50 08/21/25 02:16 50 08/21/25 02:00 50 08/21/25 02:00 50 08/21/25 02:00 50 08/21/25 01:30 08/21/25 01:00 70 08/21/25 01:00 70 08/21/25 00:30 08/21/25 00:30 70 08/21/25 00:00 08/20/25 23:39 08/20/25 23:30 70 08/20/25 23:30 08/20/25 23:03 70 08/20/25 23:02 70 08/20/25 23:01 08/20/25 23:00 70 08/20/25 22:43 70 08/20/25 22:30 08/20/25 22:30 100 08/20/25 22:00 100 08/20/25 21:31 08/20/25 21:30 100 08/20/25 21:00 08/20/25 21:00 100 Laboratory Results 08/20/25 18:57 Aerobic Blood Culture - Pending Blood Anaerobic Blood Culture - Pending 08/20/25 18:30 Aerobic Blood Culture - Pending Blood Anaerobic Blood Culture - Pending 08/21/25 08/20/25 08/20/25 04:34 Unknown 21:21 WBC 14.09 H RBC 3.37 L Hgb 10.6 L D POC Hgb Hct 32.0 L POC Hct MCV 95.0 MCH 31.5 MCHC 33.1 RDW Std Deviation 49.1 H RDW Coeff of Rosy 14.3 Plt Count 230 MPV 9.3 L Immature Gran % (Auto) 0.6 Neut % (Auto) 84.4 Lymph % (Auto) 7.5 [place] % (Auto) 6.9 Eos % (Auto) 0.4 Baso % (Auto) 0.2 Neut # (Auto) 11.89 H Lymph # (Auto) 1.05 L [place] # (Auto) 0.97 H Eos # (Auto) 0.06 Baso # (Auto) 0.03 Immature Gran # (Auto) 0.09 VBG pH VBG pCO2 VBG pO2 VBG HCO3 VBG O2 Saturation VBG Base Excess POC Sodium Sodium 141 POC Potassium Potassium 3.4 L POC Chloride Chloride 108 H Carbon Dioxide 23 POC Total CO2 Anion Gap 10 POC Anion Gap POC BUN BUN 29 H Creatinine 1.25 H POC Creatinine Est Cr Clr Drug Dosing 36.6 eGFR 43.03 BUN/Creatinine Ratio 23.2 H Glucose 142 H POC Glucose POC Glucose (other) Estimat Average Glucose Hemoglobin A1c Lactate Calcium 8.8 POC Ioniz Calcium Emeli Phosphorus 4.5 Magnesium 1.9 Total Bilirubin AST ALT Alkaline Phosphatase Troponin I High Sens 124.0 H* D B-Natriuretic Peptide Total Protein Albumin Globulin Albumin/Globulin Ratio Triglycerides 76 Cholesterol 114 LDL Cholesterol, Calc 52 VLDL Cholesterol, Calc 15 HDL Cholesterol 47 Cholesterol/HDL Ratio 2.4 Lipase TSH 5.873 H Free T4 1.66 H Nasal Screen MRSA (PCR) Negative Adenovirus (PCR) B. pertussis DNA (PCR) B.parapertussis DNA PCR C. pneumoniae DNA (PCR) Coronavirus OC43 (PCR) Coronavirus HKU1 (PCR) Coronavirus 229E (PCR) SARS-CoV-2 (PCR) Coronavirus NL63 (PCR) Human Metapneumovir PCR Influenza Type A (PCR) Influenza Type B (PCR) M. pneumoniae (PCR) Parainfluenza 1 (PCR) Parainfluenza 2 (PCR) Parainfluenza 3 (PCR) Parainfluenza 4 (PCR) RSV (PCR) Entero/Rhino (PCR) Blood Type A Positive Antibody Screen NEGATIVE 08/20/25 08/20/25 08/20/25 21:09 21:00 18:57 WBC RBC Hgb POC Hgb Hct POC Hct MCV MCH MCHC RDW Std Deviation RDW Coeff of Rosy Plt Count MPV Immature Gran % (Auto) Neut % (Auto) Lymph % (Auto) [place] % (Auto) Eos % (Auto) Baso % (Auto) Neut # (Auto) Lymph # (Auto) [place] # (Auto) Eos # (Auto) Baso # (Auto) Immature Gran # (Auto) VBG pH VBG pCO2 VBG pO2 VBG HCO3 VBG O2 Saturation VBG Base Excess POC Sodium Sodium POC Potassium Potassium POC Chloride Chloride Carbon Dioxide POC Total CO2 Anion Gap POC Anion Gap POC BUN BUN Creatinine POC Creatinine Est Cr Clr Drug Dosing eGFR BUN/Creatinine Ratio Glucose POC Glucose 145 H POC Glucose (other) Estimat Average Glucose Hemoglobin A1c Lactate 1.7 Calcium POC Ioniz Calcium Emeli Phosphorus Magnesium Total Bilirubin AST ALT Alkaline Phosphatase Troponin I High Sens B-Natriuretic Peptide Total Protein Albumin Globulin Albumin/Globulin Ratio Triglycerides Cholesterol LDL Cholesterol, Calc VLDL Cholesterol, Calc HDL Cholesterol Cholesterol/HDL Ratio Lipase TSH Free T4 Nasal Screen MRSA (PCR) Adenovirus (PCR) Not Detected B. pertussis DNA (PCR) Not Detected B.parapertussis DNA PCR Not Detected C. pneumoniae DNA (PCR) Not Detected Coronavirus OC43 (PCR) Not Detected Coronavirus HKU1 (PCR) Not Detected Coronavirus 229E (PCR) Not Detected SARS-CoV-2 (PCR) Not Detected Coronavirus NL63 (PCR) Not Detected Human Metapneumovir PCR Not Detected Influenza Type A (PCR) Not Detected Influenza Type B (PCR) Not Detected M. pneumoniae (PCR) Not Detected Parainfluenza 1 (PCR) Not Detected Parainfluenza 2 (PCR) Not Detected Parainfluenza 3 (PCR) Not Detected Parainfluenza 4 (PCR) Not Detected RSV (PCR) Not Detected Entero/Rhino (PCR) Not Detected Blood Type Antibody Screen 08/20/25 08/20/25 17:23 17:20 WBC 10.69 RBC 4.44 Hgb 13.9 POC Hgb 15.0 Hct 43.0 POC Hct 44 MCV 96.8 MCH 31.3 MCHC 32.3 RDW Std Deviation 51.4 H RDW Coeff of Rosy 14.5 Plt Count 291 MPV 9.5 Immature Gran % (Auto) 0.4 Neut % (Auto) 67.6 Lymph % (Auto) 21.7 [place] % (Auto) 6.0 Eos % (Auto) 3.6 Baso % (Auto) 0.7 Neut # (Auto) 7.23 H Lymph # (Auto) 2.32 [place] # (Auto) 0.64 H Eos # (Auto) 0.38 Baso # (Auto) 0.08 Immature Gran # (Auto) 0.04 VBG pH 7.30 L VBG pCO2 47 VBG pO2 47 VBG HCO3 23 VBG O2 Saturation 73.3 VBG Base Excess -3.6 POC Sodium 143 Sodium 140 POC Potassium 3.3 Potassium 3.4 L POC Chloride 105 Chloride 105 Carbon Dioxide 23 POC Total CO2 23 L Anion Gap 12 H POC Anion Gap 20.0 POC BUN 28 H BUN 27 H Creatinine 1.27 H POC Creatinine 1.4 H Est Cr Clr Drug Dosing Not Reportable eGFR 42.22 BUN/Creatinine Ratio 21.3 H Glucose 171 H POC Glucose POC Glucose (other) 168 H Estimat Average Glucose 120 Hemoglobin A1c 5.8 H Lactate Calcium 10.0 POC Ioniz Calcium Emeli 1.22 Phosphorus Magnesium Total Bilirubin 1.4 H AST 41 H ALT 25 Alkaline Phosphatase 105 H Troponin I High Sens 31.0 H B-Natriuretic Peptide 771 H Total Protein 8.6 H Albumin 4.4 Globulin 4.2 H Albumin/Globulin Ratio 1.0 Triglycerides Cholesterol LDL Cholesterol, Calc VLDL Cholesterol, Calc HDL Cholesterol Cholesterol/HDL Ratio Lipase 17 TSH Free T4 Nasal Screen MRSA (PCR) Adenovirus (PCR) B. pertussis DNA (PCR) B.parapertussis DNA PCR C. pneumoniae DNA (PCR) Coronavirus OC43 (PCR) Coronavirus HKU1 (PCR) Coronavirus 229E (PCR) SARS-CoV-2 (PCR) Coronavirus NL63 (PCR) Human Metapneumovir PCR Influenza Type A (PCR) Influenza Type B (PCR) M. pneumoniae (PCR) Parainfluenza 1 (PCR) Parainfluenza 2 (PCR) Parainfluenza 3 (PCR) Parainfluenza 4 (PCR) RSV (PCR) Entero/Rhino (PCR) Blood Type Antibody Screen Diagnostic Findings Chest X-Ray 08/20/25 17:03 Clinical History: Chest pain and shortness of breath Technique: A frontal view of the chest was obtained Findings: There are alveolar opacities in the left lung, concerning for pneumonia. The heart is mildly enlarged. No definite pleural effusion or pneumothorax is seen. There is suspected mild pulmonary edema No fracture is noted. Sternal wires are present. There are mediastinal and left axillary surgical clips Impression: 1. Suspected left lung pneumonia 2. Cardiomegaly and mild pulmonary edema ACT 112: Positive. There are findings on this exam that require communication between the performing entity and the patient following Patient Test Result Information Act ([place] ACT 112) guidelines. Electronically signed by Gigi Humphreys 08-20-2025 6:41 PM Chest X-Ray 08/21/25 06:00 EXAM: XR chest 1V portable CLINICAL HISTORY: eval lung martinez TECHNIQUE: An X-ray image of the chest was obtained in the AP projection. COMPARISON: Prior chest X-ray dated 08/20/2025 was reviewed. FINDINGS: Pulmonary Parenchyma: Diffuse airspace opacification is noted involving both lungs, with prominent bronchovascular markings that are suggestive of evolving pulmonary edema or infection. Blunting of the right costophrenic angle, pleural effusion, and pleural thickening are present. Heart and Mediastinum: Cardiomegaly is seen. No mediastinal widening or masses are identified. No hilar or mediastinal lymphadenopathy is present. Bony Thorax: The bony thorax appears intact, without fractures or deformities. Sternotomy sutures are in situ. Multiple metallic clips are identified in the left axilla. Soft Tissues: The soft tissues overlying the chest wall are unremarkable. Chest leads are in situ. IMPRESSION: 1. Bilateral airspace opacification, suggestive of evolving pulmonary edema or infection. Clinical correlation is needed. 2. Blunting of the right costophrenic angle, pleural effusion, and pleural thickening are present. 3. Findings show a mild interval increase/more apparent compared to prior. Electronically signed by Jatinder Hannah 08-21-2025 07:44 AM Medications Administered Home Medications Medication Instructions Recorded Confirmed Last Taken amlodipine 5 mg tablet 5 mg PO QAM 03/31/22 08/20/25 08/20/25 apixaban 5 mg tablet (Eliquis) 5 mg PO BID 03/31/22 08/20/25 08/20/25 08:00 aspirin 81 mg tablet,delayed 81 mg PO HS 03/31/22 08/20/25 08/19/25 release (Adult Low Dose Aspirin) esomeprazole magnesium 20 mg 20 mg PO QAM 03/31/22 08/20/25 08/20/25 capsule,delayed release (Nexium) losartan 50 mg tablet 50 mg PO BID 03/31/22 08/20/25 08/20/25 08:00 multivitamin 1 tab PO QAM 03/31/22 08/20/25 08/20/25 omega [id number]-fish oil 1,000 mg 1 cap PO BID 03/31/22 08/20/25 08/20/25 08:00 (120 mg-180 mg) capsule (Fish Oil) rosuvastatin 5 mg tablet (Crestor) 5 mg PO HS 03/31/22 08/20/25 08/19/25 alendronate 70 mg tablet (Fosamax) 70 mg PO Q7D 05/10/22 08/20/25 08/17/25 furosemide 20 mg tablet 40 mg PO DAILY 09/30/22 08/20/25 08/20/25 amoxicillin 500 mg capsule 2,000 mg PO DIRECTED PRN 1 HR 08/20/25 08/20/25 Unknown PRIOR TO DENTAL PROCEDURES cefdinir 300 mg capsule 300 mg PO BID 08/20/25 08/20/25 Unknown cranberry extract 500 mg capsule 500 mg PO BID 08/20/25 08/20/25 08/20/25 08:00 (Cranberry Concentrate) estradiol 0.01% (0.1 mg/gram) 1 applic vaginal DIRECTED 08/20/25 08/20/25 Unknown vaginal cream levothyroxine 75 mcg tablet 75 mcg PO DAILYBB 08/20/25 08/20/25 08/20/25 magnesium oxide 400 mg PO HS 08/20/25 08/20/25 08/19/25 metoprolol succinate 50 mg 50 mg PO QPM 08/20/25 08/20/25 08/19/25 tablet,extended release 24 hr mirabegron 50 mg tablet,extended 50 mg PO QAM 08/20/25 08/20/25 08/20/25 release 24 hr (Myrbetriq) polyethylene glycol 3350 17 17 g PO DAILY PRN Constipation 08/20/25 08/20/25 Unknown gram/dose oral powder (Miralax) ropinirole 0.5 mg tablet 0.5 mg PO HS 08/20/25 08/20/25 08/19/25 sulfamethoxazole 800 1 tab PO ONCE 08/20/25 08/20/25 Unknown mg-trimethoprim 160 mg tablet (Bactrim DS) Active Medications Generic Name Dose Route Start Last Admin Trade Name Freq PRN Reason Stop Dose Admin Amlodipine Besylate 5 mg 08/21/25 09:00 08/21/25 08:15 Amlodipine Besylate 5 Mg Tab PO 09/20/25 08:59 5 mg QAM ANTONIETTA Administration Apixaban 5 mg 08/21/25 09:00 08/21/25 08:15 Apixaban 5 Mg Tablet PO 09/20/25 08:59 5 mg BID ANTONIETTA Administration Azithromycin 250 mg 08/20/25 20:35 08/21/25 08:15 Azithromycin 250 Mg Tab PO 08/25/25 20:34 250 mg QAM ANTONIETTA Administration Furosemide 40 mg 08/20/25 21:00 08/21/25 08:16 Furosemide 40 Mg/4 Ml Vial IV 09/19/25 20:59 40 mg BID ANTONIETTA Administration Nitroglycerin/Dextrose 250 mls @ 0 mls/hr 08/20/25 17:30 08/21/25 00:53 Nitroglycerin/D5w 100 Mcg/Ml IV 09/19/25 17:29 0 mcg/min .Q0M ANTONIETTA 0 mls/hr Titration Protocol 0 MCG/MIN Piperacillin Sod/Tazobactam Sod 4.5 gm in 100 mls @ 25 mls/hr 08/21/25 03:00 08/21/25 06:57 Zosyn IV 08/26/25 02:59 Infused Q8H ANTONIETTA Infusion Protocol Levothyroxine Sodium 75 mcg 08/21/25 06:30 08/21/25 06:32 Levothyroxine Sodium 75 Mcg Tablet PO 09/20/25 06:29 75 mcg DAILYBB ANTONIETTA Administration Losartan Potassium 50 mg 08/21/25 09:00 08/21/25 08:27 Losartan Potassium 50 Mg Tab PO 09/20/25 08:59 50 mg QAM ANTONIETTA Administration Miscellaneous 1 each 08/20/25 21:00 08/21/25 07:12 Icu Protocol For Hyperglycemia N/A 08/22/25 20:59 Not Given ACHS ANTONIETTA Pantoprazole Sodium 40 mg 08/21/25 09:00 08/21/25 08:16 Pantoprazole 40 Mg Tab PO 09/20/25 08:59 40 mg QAM ANTONIETTA Administration Ropinirole HCl 0.5 mg 08/21/25 21:00 08/20/25 23:04 Ropinirole Hcl 0.25 Mg Tablet PO 09/20/25 20:59 0.5 mg HS ANTONIETTA Administration Coding Level of Care Code 70507 CRITICAL CARE 1ST 30-74M Diagnoses Acute hypoxic respiratory failure J96.01 Hypertensive emergency I16.1 Acute exacerbation of CHF (congestive heart failure) I50.9 Heart failure type: unspecified Fever, unspecified fever cause R50.9 Fever type: unspecified Time Spent (min) 45 (3) Acute exacerbation of CHF (congestive heart failure) Heart failure type: unspecified Qualified Code(s): I50.9 - Heart failure, unspecified (4) Fever Fever type: unspecified Qualified Code(s): R50.9 - Fever, unspecified
[2025-08-21] MEDS: METOPROLOL SUCC 25MG EXT REL TAB PO STA (10:32)
[2025-08-21] MEDS: ACETAMINOPHEN 325 MG TAB PO PRN (10:32)
[2025-08-21] MEDS: cefTRIAXone SODIUM 2,000 MG/50 ML BAG IV SCH (10:32)
[2025-08-21 11:01] LABS: Appearance Urine Clear (Clear); Bacteria Urine Automated None Seen (None Seen); Cast Urine Automated 0-2 /lpf (0-2); Epithelial Cell Urine Auto 0-2 /hpf (0-2); Glucose Urine UA Negative (Negative)
--- NOTE | 2025-08-21 12:27 | Hospitalist Progress Note ---
Date of Service August 21, 2025 Assessment & Plan (1) Acute hypoxic respiratory failure: (2) Acute on chronic heart failure with mildly reduced ejection fraction (HFmrEF): (3) Hypertensive urgency: (4) Demand ischemia of myocardium: (5) CKD (chronic kidney disease), stage III: (6) Hypothyroid: (7) Prediabetes: Plan Patient 84-year-old female with acute hypoxic respiratory failure most likely multifactorial with uncontrolled hypertension, valvular disease and decreased ejection fraction. Patient has responded to diuresis, continue Continue oxygen support and titrate off as able Communication with loan specialist, agree with narrowing antibiotics, low suspicion for infectious process at this time Continue with rate control for atrial fibrillation, suspect rates will improve as her respiratory status improves Blood pressure much better controlled on current regimen, may need to consider adjusting amlodipine to diltiazem if needed for rate control Continue current levothyroxine, recommend repeat TSH in 4 to 6 weeks. Increase activity as tolerated Admission and Anticipated Discharge Date Admission Date: August 20, 2025 Subjective Patient reports feeling better, feels a little less short of breath. Physical Exam Physical Exam: Constitutional: Alert, nontoxic, mild to moderate respiratory distress HEENT: Mucous membranes moist. Lungs: Decreased breath sounds, crackles at bases, expiratory wheezing CV: S1-S2, irregular, tachycardic Abdomen: Soft, nontender, nondistended Extremities: No significant edema Neuro: No focal deficits, generally weak Psych: Cooperative, normal mood Results & Data Results & Data Vital Signs (Past 12 Hours) Vital Signs Temp Pulse Pulse Resp BP Pulse Ox O2 Del Method 08/21/25 11:01 121/56 L 08/21/25 11:00 38.7 C H 102 H 33 H 92 08/21/25 10:00 38.6 C H 99 H 28 H 92 08/21/25 10:00 129/84 08/21/25 10:00 129/84 08/21/25 10:00 129/84 08/21/25 10:00 129/84 08/21/25 10:00 129/84 08/21/25 09:00 122/72 08/21/25 09:00 122/72 08/21/25 09:00 122/72 08/21/25 09:00 122/72 08/21/25 09:00 122/72 08/21/25 09:00 38.4 C H 98 H 33 H 122/72 93 Nasal Cannula 08/21/25 08:00 Nasal Cannula 08/21/25 08:00 Nasal Cannula 08/21/25 08:00 08/21/25 08:00 38.2 C H 94 H 46 H 92 Nasal Cannula 08/21/25 08:00 121/73 08/21/25 07:35 92 H 30 H 94 Nasal Cannula 08/21/25 07:30 107/59 L 08/21/25 07:30 107/59 L 08/21/25 07:30 38.2 C H 83 30 H 96 08/21/25 07:24 88 31 H 99 08/21/25 07:13 BiPAP 08/21/25 07:00 115/62 08/21/25 07:00 38.1 C H 79 30 H 98 BiPAP 08/21/25 06:31 116/70 08/21/25 06:30 38.0 C H 92 H 29 H 97 BiPAP 08/21/25 06:00 128/66 08/21/25 05:59 38.0 C H 90 28 H 98 BiPAP 08/21/25 05:32 38.0 C H 87 26 H 98 BiPAP 08/21/25 05:30 109/55 L 08/21/25 05:29 38.0 C H 87 29 H 97 BiPAP 08/21/25 05:02 37.6 C H 83 28 H 95 BiPAP 08/21/25 05:00 108/50 L 08/21/25 04:59 37.3 C 82 29 H 95 BiPAP 08/21/25 04:32 37.8 C H 83 28 H 96 BiPAP 08/21/25 04:30 115/56 L 08/21/25 04:29 37.9 C H 90 29 H 96 BiPAP 08/21/25 04:00 86 28 H 128/68 96 BiPAP 08/21/25 03:30 117/55 L 08/21/25 03:30 38.0 C H 87 29 H 95 BiPAP 08/21/25 03:01 107/63 08/21/25 02:59 38.1 C H 89 31 H 95 BiPAP 08/21/25 02:31 113/56 L 08/21/25 02:30 38.2 C H 83 26 H 94 BiPAP 08/21/25 02:16 84 26 H 94 08/21/25 02:00 38.2 C H 96 H 29 H 135/66 97 BiPAP 08/21/25 02:00 90 27 H 135/66 95 BiPAP 08/21/25 02:00 38.2 C H 90 27 H 95 BiPAP 08/21/25 01:30 115/56 L 08/21/25 01:00 38.3 C H 91 H 25 H 97 BiPAP 08/21/25 01:00 38.2 C H 86 24 125/62 95 BiPAP 08/21/25 00:30 27 H 106/78 08/21/25 00:30 38.3 C H 95 H 27 H 96 BiPAP O2 Del Method O2 Flow Rate O2 Flow Rate FiO2 08/21/25 11:01 08/21/25 11:00 08/21/25 10:00 08/21/25 10:00 08/21/25 10:00 08/21/25 10:00 08/21/25 10:00 08/21/25 10:00 08/21/25 09:00 08/21/25 09:00 08/21/25 09:00 08/21/25 09:00 08/21/25 09:00 08/21/25 09:00 6 08/21/25 08:00 08/21/25 08:00 6 08/21/25 08:00 Nasal Cannula 6 08/21/25 08:00 6 08/21/25 08:00 08/21/25 07:35 5 08/21/25 07:30 08/21/25 07:30 08/21/25 07:30 08/21/25 07:24 40 08/21/25 07:13 08/21/25 07:00 08/21/25 07:00 50 08/21/25 06:31 08/21/25 06:30 50 08/21/25 06:00 08/21/25 05:59 50 08/21/25 05:32 50 08/21/25 05:30 08/21/25 05:29 50 08/21/25 05:02 50 08/21/25 05:00 08/21/25 04:59 50 08/21/25 04:32 50 08/21/25 04:30 08/21/25 04:29 50 08/21/25 04:00 50 08/21/25 03:30 08/21/25 03:30 50 08/21/25 03:01 08/21/25 02:59 50 08/21/25 02:31 08/21/25 02:30 50 08/21/25 02:16 50 08/21/25 02:00 50 08/21/25 02:00 50 08/21/25 02:00 50 08/21/25 01:30 08/21/25 01:00 70 08/21/25 01:00 70 08/21/25 00:30 08/21/25 00:30 70 Diagnostic Findings Reviewed imaging, laboratory and diagnostic studies. Pertinent findings as below. Personally reviewed chest x-ray, suspected effusion, bilateral congestion consistent more with edema than infectious infiltrate Respiratory viral panel negative MRSA screen negative WBCs 14.0 Hemoglobin 0.8 Potassium 3.4 Creatinine 1.25 Glucoses reviewed Troponins reviewed, suspect demand ischemia Reviewed outside EMR: Reviewed echocardiogram from [facility] done on 05/22/2025: Ejection fraction 45 to 50%, right ventricular systolic pressure 45 mmHg, dilated atrium, moderate aortic stenosis, moderate tricuspid regurgitation
--- NOTE | 2025-08-21 15:13 | XCELERA ---
[id number] \\[id number]
[2025-08-21] MEDS: METOPROLOL SUCC 50MG EXT REL TAB PO SCH (20:41)
[2025-08-21] MEDS: ROSUVASTATIN CALCIUM 5 MG TAB PO SCH (20:41)
[2025-08-22] MEDS: FUROSEMIDE 40 MG/4 ML VIAL IV ONE (04:23)
[2025-08-22] MEDS ORDERED: STAT IV Infusion **Titration per Protocol STA (04:32)
[2025-08-22] MEDS: NITROGLYCERIN/D5W 100MCG/ML 250 ML IV SCH (04:36)
[2025-08-22] MEDS: NITROGLYCERIN/D5W 100 MCG/ML BTL ONE (04:41)
--- NOTE | 2025-08-22 04:43 | Communication Note ---
<Statement entered by Gab Macias MD - 08/22/25 08:48> I, Gab Macias MD, reviewed the physical exam, assessment, plan, and management as documented by the Advanced Care Provider DELLA Steele, for this patient encounter. I discussed the case with them, confirmed the findings, and I concur with the proposed plan of care. I was available for consultation throughout the encounter and provided guidance as needed. Date of Service: August 22, 2025 Patient woke up acute shortness of breath, tachycardic, tachypenic, and hypoxic with coarse rhonchi throughout. BiPAP was initiated again at 14/8 and FIO2 increased. Patient was noted to be hypertensive as well back to 160-180s/90-100s. While BiPAP was applied, Hydralazine was given 5mg IV with reduction to 140s. Patient continued with dyspnea, and hypertension, however hypoxia improved, but remains with persistent rhonchi/crackles throughout , will administer another 40mg IV lasix and re-initiate nitroglycerine for BP control as she had a good response to NTG infusion on admission. - Patient without chest pain - Afib without ectopy- 100-120s - BP 160/85 - 180/104 - RR 28-30 - Current SAUD - (-) 850 ml Continue with support as above- if NTG does not provide desired effect consider changing to Cardene as this has quick on and off effect as well, BiPAP or CPAP for support- tolerating. Goal BP <140/90 status improved at this time, closely follow, may need BiPAP nightly as well as increase diuretic dosing today to q8h will defer to rounding team. Jonah HULL ([facility])
[2025-08-22 05:03] LABS: Hematocrit (blood only) 37.0 % (37.0-47.0); Hemoglobin 11.8 g/dL (12.0-16.0); Mean Corpuscular Hemoglobin 31.1 pg (25.0-34.0); Mean Corpuscular Volume 97.4 fL (80.0-100.0); Platelet Count 263 K/uL (130-400); RDW Standard Deviation 52.0 fL (36.4-46.3); Red Blood Count 3.80 M/uL (4.20-5.40); White Blood Count 16.47 K/ul (4.8-10.8)
[2025-08-22] MEDS: ACETAMINOPHEN 1,000 MG/100 ML VIAL IV STA (05:07)
[2025-08-22] MEDS: ACETAMINOPHEN 1000 MG/100 ML IV IV ONE (05:15)
[2025-08-22 05:21] LABS: Anion Gap 13.0 (3-11); Blood Urea Nitrogen 29.0 mg/dl (6-23); Calcium 9.3 mg/dl (8.6-10.3); Carbon Dioxide 23.0 mmol/L (21-32); Chloride 106.0 mmol/L (98-107); Creatinine Clr Calc Pharmacy 31.4 ml/min; Glucose 128.0 mg/dl (70-99(Fasting)); Magnesium 2.1 mg/dl (1.7-2.4); Potassium 3.8 mmol/L (3.5-5.1); Sodium 142.0 mmol/L (136-145)
--- NOTE | 2025-08-22 08:10 | XRay Report ---
EXAM: XR chest 1V portable CLINICAL HISTORY: Eval lung martinez- pulm edema vs. infective TECHNIQUE: X-ray image of the chest was obtained in the AP projection. COMPARISON: 08/21/2025 CR. FINDINGS: Pulmonary Parenchyma: Mild progression of diffuse airspace opacification is noted involving both lungs and is currently more apparent along the right upper lung zone, with prominent bronchovascular markings that are suggestive of evolving pulmonary edema or infection. Blunting of the right costophrenic angle, pleural effusion, and pleural thickening are present. The site of concern highlighted in the available images in "red" appears to be an artifact, with overlapping rib and clavicular bony edges. No evidence of pneumothorax is seen in the right lung apex. A follow-up radiograph in optimal positioning is advised. Heart and Mediastinum: Cardiomegaly is seen. No mediastinal widening or masses are identified. No hilar or mediastinal lymphadenopathy is present. Bony Thorax: The bony thorax appears intact, without fractures or deformities. Sternotomy sutures are in situ. Multiple metallic clips are identified in the left axilla. Soft Tissues: The soft tissues overlying the chest wall are unremarkable. Chest leads are in situ. IMPRESSION: 1. Interval progression of bilateral airspace opacification, currently more apparent along the upper lung zones, is suggestive of evolving pulmonary edema or pneumonic consolidations in a post-surgical status. Clinical correlation is needed. 2. Blunting of the right costophrenic angle, with possible pleural effusion and pleural thickening, is present. 3. The site of concern highlighted in the available images in "red" appears to be an artifact, with overlapping rib and clavicular bony edges. No evidence of pneumothorax is seen in the right lung apex. A follow-up radiograph in optimal positioning is advised. Electronically signed by Jatinder Hannah 08-22-2025 08:09 AM
--- NOTE | 2025-08-22 09:21 | Cardiology Consultation ---
Date of Consultation August 22, 2025 Assessment & Plan (1) Acute exacerbation of CHF (congestive heart failure): Acute heart failure with preserved ejection fraction Mixed valvular heart disease calcified mitral valve with moderate mitral stenosis, severe mitral [place] [facility] [place] Moderate , Moderate AR CAD, remote CABG in 2002, Cx stent 2012 Paroxysmal versus longstanding persistent AF * CXRs reveal ongoing pulmonary edema * Patient on bipap support during my assessment * Agree with Furosemide 40 mg IV twice daily. Will have to permit some degree of azotemia. * Continue Eliquis for stroke prophylaxis. Continue metoprolol succinate for rate control. * The patient historically has paroxysmal atrial fibrillation. Last documented EKG with sinus rhythm dates back to 2021. The patient is already been seen in the comprehensive valve clinic within the [facility] in January,. Significant mitral annular calcification as well as moderate mitral stenosis noted on previous transesophageal echocardiogram as well as severe mitral regurgitation. It was felt that transcatheter zirg-ia-edyn repair (mitral clip) was not an option. Surgical mitral valve replacement was discussed at that time, however the patient was felt to be frail and of high risk for surgical intervention and I agree that this is still true. Another option would been discussed that time for valve clinic assessment was potential for the Tendyne transcatheter mitral valve prosthesis which was not FDA approved back in January but has been approved in the meantime. I counseled the patient and her daughter that I would reach out to the structural heart team [place] [facility] to discuss if there is any knowledge of any facilities that offer this procedure at present as perhaps outpatient follow up there could be arranged. Jose Manuel Fontenot DO History of Present Illness Attending Physician: Jose Alfredo Stout DO History of Present Illness Sally Fong is an 84 year old female seen in cardiology consultation per the request of Dr Stout for the evaluation of pulmonary edema, atrial fibrillation, and valvular heart disease. The patient's daughter , Bere, at the bedside in ED room 110 during my assessment. The patient presented to the emergency department two days ago at 08/20/2025 with complaints of shortness of breath after outpatient cystoscopy. On arrival to the emergency department tachycardia was noted with significant hypertension (180s/100s) and hypoxia. Daughter describes that through the weekend the patient had been short of breath. She arrived for her outpatient cystoscopy however on 08/20/2024 and underwent the procedure with felt markedly short of breath immediately after the procedure. Chest x-ray on arrival consistent with pulmonary edema. Hypoxia was noted. She received topical nitroglycerin and nitroglycerin infusion, IV furosemide, and BiPAP support and was admitted to the intensive care unit. The patient had most recently been admitted to [facility] in May, with acute kidney injury and acute combined systolic and diastolic heart failure per the discharge summary. Creatinine was as high as 2.95 on admission there and improved to 1.5 mg/dL at that time. Cardiac History: Cardiac Problems: 1.Moderate aortic valve stenosis 2.Moderate aortic valve insufficiency 3.Severe mitral insufficiency, moderate mitral stenosis 4.CAD s/p CABG in 2002, s/p Lcx stent 2012 5.Chronic HFpEF 6.Paroxysmal atrial fibrillation 7.HTN 8.PAD s/p Right Fem-Pop Bypass 08/16/24 9.Carotid artery stenosis s/p bilateral CEA 2002 10.Breast CA s/p Mastectomy 2002 11.Hypothyroidism Allergies Allergy/AdvReac Type Severity Reaction Status Date / Time gabapentin Allergy Intermediate SWELLING Verified 08/20/25 18:05 OF HANDS & ANKLES lovastatin AdvReac Intermediate MUSCLE Verified 08/20/25 18:05 ACHES nitrofurantoin AdvReac Intermediate GLOSSITIS Verified 08/20/25 18:05 [From Macrobid] PER [facility] Home Medications Medication Instructions Recorded Confirmed Type amlodipine 5 mg tablet 5 mg PO QAM 03/31/22 08/20/25 History apixaban 5 mg tablet (Eliquis) 5 mg PO BID 03/31/22 08/20/25 History aspirin 81 mg tablet,delayed 81 mg PO HS 03/31/22 08/20/25 History release (Adult Low Dose Aspirin) esomeprazole magnesium 20 mg 20 mg PO QAM 03/31/22 08/20/25 History capsule,delayed release (Nexium) losartan 50 mg tablet 50 mg PO BID 03/31/22 08/20/25 History multivitamin 1 tab PO QAM 03/31/22 08/20/25 History omega 9-mvq-mkg-fish oil 1,000 mg 1 cap PO BID 03/31/22 08/20/25 History (120 mg-180 mg) capsule (Fish Oil) rosuvastatin 5 mg tablet (Crestor) 5 mg PO HS 03/31/22 08/20/25 History alendronate 70 mg tablet (Fosamax) 70 mg PO Q7D 05/10/22 08/20/25 History furosemide 20 mg tablet 40 mg PO DAILY 09/30/22 08/20/25 History amoxicillin 500 mg capsule 2,000 mg PO DIRECTED PRN 1 HR 08/20/25 08/20/25 History PRIOR TO DENTAL PROCEDURES cefdinir 300 mg capsule 300 mg PO BID 08/20/25 08/20/25 History cranberry extract 500 mg capsule 500 mg PO BID 08/20/25 08/20/25 History (Cranberry Concentrate) estradiol 0.01% (0.1 mg/gram) 1 applic vaginal DIRECTED 08/20/25 08/20/25 History vaginal cream levothyroxine 75 mcg tablet 75 mcg PO DAILYBB 08/20/25 08/20/25 History magnesium oxide 400 mg PO HS 08/20/25 08/20/25 History metoprolol succinate 50 mg 50 mg PO QPM 08/20/25 08/20/25 History tablet,extended release 24 hr mirabegron 50 mg tablet,extended 50 mg PO QAM 08/20/25 08/20/25 History release 24 hr (Myrbetriq) polyethylene glycol 3350 17 17 g PO DAILY PRN Constipation 08/20/25 08/20/25 History gram/dose oral powder (Miralax) ropinirole 0.5 mg tablet 0.5 mg PO HS 08/20/25 08/20/25 History sulfamethoxazole 800 1 tab PO ONCE 08/20/25 08/20/25 History mg-trimethoprim 160 mg tablet (Bactrim DS) Patient History Medical History Aortic stenosis Moderate per 06/03/22 ECHO History of urinary incontinence Carotid artery stenosis S/p right carotid endarterectomy (2002) Limb alert care status pt states has had BP/IVs in LUE since L breast surgery but has chronic swelling in that arm Peripheral edema 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 LAD: mid 100% occlusion, diagonal branch 40%, WALKER graft to LAD patent. Cx proximal 85%, mid 10% and stenting site patent-stent placed to Cx during cath. RCA: mid long 95% and distal 100%. Prediabetes History of blood transfusion 2001- s/p CABG On anticoagulant therapy GERD (gastroesophageal reflux disease) controlled, stable per pt Anxiety occasionally Myocardial Infarction 11/2001 treated with open heart surgery [facility] History of cardioversion ~ at [facility]. Breast cancer (~2001) Left breast cancer (lumpectomy)- s/p XRT High cholesterol Hypothyroid A-fib Hx cardioversion - currently managed with medication and Eliquis. Follows with Dr Schaefer ([facility]) Surgical History History of right-sided carotid endarterectomy History of coronary artery bypass graft x 1 History of colonoscopy History of cardiac cath ~15-20 years ago, [facility] History of surgical removal of left nipple Hx of lumpectomy left Hx of heart artery stent (~2003) (between 15 and 20 years ago) total x2 stents at [facility] Family History Other Heart disease No family history of adverse response to anesthesia Social History Smoking Status: Former smoker Smoking End Date: 'about 22 years ago'; Second Hand Exposure: Yes (not for many years); Do You Dip or Chew Tobacco: No; Hx Alcohol Use: Yes Alcohol type: beer, wine and hard liquor Hx Substance Use: No Preferred Language: Senegalese Communication Ability: Effective Tin Can Feeder Required: No Beliefs That Will Affect Care: None marital status: / Current Living Situation: Alone Current Living Situation Comment: lives at [facility] Other Information That Helps Us Care for You: No Feels Safe at Home: Yes Safety Concerns: Feels Safe At This Time Assistive Devices: Glasses and Walker Review of Systems Review of Systems: All systems reviewed & are unremarkable except as noted in HPI & below Physical Exam Physical Exam: Temp Pulse Resp BP Pulse Ox O2 Del Method O2 Flow Rate 37.3 C 90 27 H 131/62 99 BiPAP 6 08/22/25 08:45 08/22/25 08:45 08/22/25 08:45 08/22/25 08:30 08/22/25 08:55 08/22/25 08:55 08/22/25 03:00 FiO2 50 08/22/25 08:55 Constitutional: + ill appearing on BiPap Respiratory: Auscultation: + diminished lung sounds (decreased BS at the baseline ); no crackles and no wheezes Cardiovascular: Rate/Rhythm: + tachycardic; not irregularly irregular Heart Sounds: + murmur (2/6 SM) Gastrointestinal (Abdomen): normal bowel sounds, soft, nontender, no he patosplenomegaly Neurologic: PERRL, EOMI, accommodation nl, no face palsy, no dysarthria Psychiatric: A+Ox3, euthymic affect Results & Data Laboratory Results Cardiac Enzymes 08/21/25 Range/Units 04:34 Troponin I High Sens 242.4 H* D (0-14) pg/ml CBC 08/22/25 Range/Units 04:42 WBC 16.47 H (4.8-10.8) K/ul RBC 3.80 L (4.20-5.40) M/uL Hgb 11.8 L (12.0-16.0) g/dL Hct 37.0 (37.0-47.0) % Plt Count 263 (130-400) K/uL Comprehensive Metabolic Panel 08/22/25 Range/Units 04:42 Sodium 142 (136-145) mmol/L Potassium 3.8 (3.5-5.1) mmol/L Chloride 106 (98-107) mmol/L Carbon Dioxide 23 (21-32) mmol/L BUN 29 H (6-23) mg/dl Creatinine 1.44 H (0.6-1.2) mg/dl Glucose 128 H (70-99(Fasting)) mg/dl Calcium 9.3 (8.6-10.3) mg/dl Intake and Output 08/21/25 08/22/25 08/22/25 22:59 06:59 14:59 Intake Total 840 / 1358.7 108.7 / 1358.7 5.7 / 5.7 Output Total 550 / 2350 950 / 2350 75 / 75 Balance 290 / -991.3 -841.3 / -991.3 -69.3 / -69.3 Intake: IV 108.7 / 158.7 5.7 / 5.7 Acetaminophen 1,000 mg In 100 100 / 100 ml @ 400 mls/hr IV NOW STA Rx#: [id number] Nitroglycerin/D5w 100Mcg/ml 250 8.7 / 8.7 5.7 / 5.7 ml @ 5 MCG/MIN 3 mls/hr IV . Q24H [facility] Rx#:[id number] Oral 840 / 1200 Output: Urine Amount (Catheter) 550 / 2350 950 / 2350 75 / 75 Ayala/Indwelling 550 / 2350 950 / 2350 75 / 75 Other: Weight 88.8 kg Weight Measurement Method Built in [facility] Diagnostic Findings Summary transthoracic echocardiogram performed 08/21/2025: Left Ventricular Ejection Fraction = 55-60%. There is mild concentric left ventricular hypertrophy. Septal motion is consistent with conduction abnormality. The right ventricle is mildly dilated. The right ventricular systolic function is qualitatively normal. Moderate biatrial enlargement. The aortic valve is moderately calcified. Moderate valvular aortic stenosis. Moderate aortic regurgitation. There is severe mitral annular calcification. The mitral valve leaflets appear thickened, but open well. Mitral valve leaflets are mildly calcified. There is severe mitral regurgitation. There is moderate mitral stenosis. There is moderate tricuspid regurgitation. The estimated systolic pulmonary pressure is 45 mmHg. -No previous studies available at this institution for comparison. Study available her and her outpatient chart dated 05/22/2025, [facility], describes LVEF of 45 to 50% at that time moderate aortic stenosis moderate mitral regurgitation, pulmonary artery systolic pressure estimated to be 45 mmHg. Summary of [place]esophageal echocardi[place] [facility] The qualitative LV ejection fraction is 50-54% (normal). There is a moderate sized apical and anteroseptal wall motion abnormality with akinesis of the segments. Moderate aortic valve stenosis is present. Moderate aortic valve regurgitation is present. There is severe mitral annular calcification. Moderate mitral stenosis is present. Severe mitral regurgitation is present. EKG performed 08/20/2025 independently: Atrial fibrillation 88 bpm, nonspecific intraventricular conduction delay, age-indeterminate lateral infarct pattern. Compared to the previous dating back to 09/19/2024 within the [facility] system, no significant infiltrate 3 chest x-rays have been performed thus far during her hospital stay, with ongoing progression of bilateral airspace opacities suggestive of pulmonary edema versus pneumonic consolidation. PG Care Time/CCT Total # of Minutes Spent Total Time Spent with Patient: Total time spent is greater than 50% in coordination of care (as documented) at patient's floor/unit and/or counseling patient: Coding Level of Care Code 88127 IN/OBS CONSULT LVL 4,60M Diagnoses Acute exacerbation of CHF (congestive heart failure) I50.9 Heart failure type: unspecified (1) Acute exacerbation of CHF (congestive heart failure) Heart failure type: unspecified Qualified Code(s): I50.9 - Heart failure, unspecified
--- NOTE | 2025-08-22 10:08 | Critical Care Progress Note ---
Date of Service August 22, 2025 Assessment & Plan (1) Acute hypoxic respiratory failure: Plan: * Initially suspected on basis of flash pulmonary edema * Cannot rule contribution from pneumonia in patient with fever, leukocytosis, and asymmetric infiltrates (more on left) (2) Hypertensive emergency: Plan: * Resolved (3) Acute exacerbation of CHF (congestive heart failure): Plan: * HFpEF with Aortic and Mitral stenosis and regurgitation (4) Fever: Plan Need for ICU: Patient presented with acute hypoxemic respiratory failure suspected on the basis of flash pulmonary edema. Recurrent distress with need for NIV. Neuro: No issues at this time Post CEA Cardiac: Hypertensive emergency on presentation: recurred at night, responded to Hydralazine. Continue antihypertensives. Pulmonary edema on presentation Moderate and AI, Moderate MS and Severe MR Preserved EF Suggestion of Pulmonary Hypertension, most likely secondary to HFpEF Paroxysmal AF: Continue Eliquis and Metoprolol for rate-control Peripheral vascular disease Post CABG Possible Type 2 NSTEMI Respiratory: Acute hypoxemic respiratory failure Cannot rule out pneumonia: abnormal CXR and fever Abnormal sputum, but no virulent organism growth at this point GI: GERD RENAL/LYTES: CKD Slight increase Creatinine, but may have to be tolerated to avoid volume- overload Recent Cystoscopy prior to presentation ENDO: No issues HEME: Leukocytosis ID: Fever, Leukocytosis Abnormal CXR suspicious for possible pneumonia Abnormal sputum, but no virulent organisms Multi-valve abnormalities and recent instrumentation, but unlikely endocarditis with negative blood cultures Continue Rocephin and Zithromax Feeding/Fluids: Cardiac diet Analgesia: Not needed Sedation: Not needed DVT prophylaxis: On Therapeutic-dose Eliquis Head-up: Not applicable Ulcer Prophylaxis: On Protonix Glycemic Control: No issues Sp. Br. Trial: Not applicable Bowel Care: Colace Ind. Catheters: Ayala catheter for accurate I/O; peripheral lines Antibiotics: Rocephin, Zithromax Code-Status: Full Code Disposition: Continue ICU until patient stable and not at risk of recurrent respiratory failure I have personally spent 65 minutes of critical care time in the direct management of this patient. This is a life/limb threatening event. This includes time spent evaluating patient, direct bedside care, chart review, placing orders, interpretation of diagnostic studies, discussion with consultants, p atient, and family members, as well as other required patient management activities. This time is exclusive of all separately billable procedures, and teaching time and separate from and in addition to any other critical care service time. Admission and Anticipated Discharge Date Admission Date: August 20, 2025 Subjective The patient is a very pleasant 84-year-old female who presented to the Emergency Department for sudden onset of severe shortness of breath following a urology appointment and cystoscopy earlier the same day. Her daughters, who provided most of the history at the bedside, reported that although she always experienced some baseline dyspnea, her symptoms worsened significantly after the procedure. She initially attempted to rest after leaving the office, but her shortness of breath persisted and intensified, prompting her family to bring her to the hospital. She denied chest pain. On arrival, she appeared ill and in moderate distress, able to answer only one- word questions. She was found to be hypoxic with an oxygen saturation of 80%, hypertensive with a systolic blood pressure of 200 mmHg, and tachycardic. Physical examination revealed bilateral rhonchi and pitting edema in the lower extremities. She was placed on a nonrebreather mask and subsequently transitioned to BiPAP with gradual improvement in oxygenation and respiratory distress. Initial laboratory studies showed mild hypokalemia, a creatinine of 1.27, mildly elevated troponin, and a BNP of 800. Chest X-ray demonstrated cephalization and bilateral pulmonary edema, worse on the left. She was treated with sublingual nitroglycerin, Nitropaste, a nitroglycerin drip, and IV Lasix. The patient was admitted to the ICU for acute hypoxic respiratory failure secondary to flash pulmonary edema in the setting of a hypertensive emergency, consistent with a SCAPE (sympathetic crashing acute pulmonary edema) picture. Her management included aggressive diuresis, vasodilator therapy, and noninvasive ventilatory support. Infectious etiologies were considered less likely given the acute presentation and absence of fever or infectious symptoms, but empiric antibiotics were administered due to SIRS criteria. 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 Note from 08/21/2025: The patient was doing well this am. She denied dyspnea or chest discomfort. Low-grade temperature of unclear etiology at this time, but cannot rule out pneumonia with asymmetric pulmonary infiltrates. Echo with biatrial enlargement, moderate and AI, moderate MS and severe MR. Home meds resumed. Note from 08/22/2025: Recurrent episode of acute hypoxemic respiratory failure during the night. Possibly associated with tachycardia and fever. Responded to Hydralazine, BiPAP, Tylenol. Doing a little better this am. Needing BiPAP from time to time. Slight increase in Creatinine. Seen by Cardiology: may have to accept some elevation in Creatinine to avoid volume-overload. CXR starting to look more like pneumonia. Abnormal sputum but no virulent organisms at this time. Continue Rocephin and Zithromax. At the time of the interview the patient denied dyspnea or chest discomfort at rest. Review of Systems Review of Systems: All systems reviewed & are unremarkable except as noted in HPI & below Physical Exam Physical Exam: General: In no acute distress, using Oxygenvia nasal cannula. Neck: No palpable masses or adenopathy. Respiratory: Diffusely decreased breath sounds, no wheezing; scattered inspiratory crackles. No use of accessory muscles and no prolonged exhalation. Cardiac: Distant sounds, regular rhythm, Grade 2-3 systolic murmur heard throughout the precordium, no gallops, no rubs; could not appreciate JV pulse elevation. GI: Soft, nontender. Extremities No cyanosis,1+ edema. Neuro: No gross motor deficits. Seems appropriate. No facial-droop. Speech is clear. Results & Data Results & Data Vital Signs (Past 12 Hours) Vital Signs Temp Pulse Resp BP Pulse Ox O2 Del Method O2 Flow Rate 08/22/25 08:55 99 BiPAP 08/22/25 08:45 37.3 C 90 27 H 92 08/22/25 08:30 37.4 C 94 H 26 H 97 08/22/25 08:30 131/62 08/22/25 08:15 37.4 C 87 26 H 98 08/22/25 08:00 37.5 C 86 28 H 97 08/22/25 08:00 112/81 08/22/25 08:00 93 H 08/22/25 07:45 37.6 C H 86 38 H 98 08/22/25 07:38 BiPAP 08/22/25 07:30 130/77 08/22/25 07:30 130/77 08/22/25 07:30 37.6 C H 92 H 34 H 94 08/22/25 07:15 37.8 C H 89 26 H 97 08/22/25 07:00 119/57 L 08/22/25 07:00 37.7 C H 96 H 23 98 08/22/25 06:15 38.3 C H 94 H 28 H 97 BiPAP 08/22/25 06:02 115/53 L 08/22/25 06:00 38.7 C H 103 H 26 H 98 BiPAP 08/22/25 05:45 38.7 C H 101 H 32 H 98 BiPAP 08/22/25 05:30 38.8 C H 114 H 30 H 99 BiPAP 08/22/25 05:30 127/66 08/22/25 05:20 39.1 C H 118 H 27 H 112/70 97 BiPAP 08/22/25 05:15 39.1 C H 117 H 36 H 96 BiPAP 08/22/25 05:00 39.1 C H 119 H 18 95 BiPAP 08/22/25 05:00 139/89 08/22/25 04:45 120/79 08/22/25 04:45 38.7 C H 115 H 35 H 94 BiPAP 08/22/25 04:32 110 H 39 H 95 08/22/25 04:30 160/85 H 08/22/25 04:30 38.7 C H 117 H 35 H 94 BiPAP 08/22/25 04:17 142/89 H 08/22/25 04:15 38.1 C H 113 H 40 H 91 BiPAP 08/22/25 04:13 170/93 H 08/22/25 03:48 106 H 29 H 169/79 H 93 BiPAP 08/22/25 03:45 38.0 C H 113 H 36 H 93 BiPAP 08/22/25 03:39 161/76 H 08/22/25 03:39 161/76 H 93 BiPAP 08/22/25 03:39 37.9 C H 107 H 27 H 94 BiPAP 08/22/25 03:30 37.8 C H 101 H 39 H 85 L BiPAP 08/22/25 03:01 147/56 H 08/22/25 03:00 37.6 C H 92 H 30 H 90 Nasal Cannula 6 08/22/25 02:30 37.4 C 88 34 H 93 Nasal Cannula 6 08/22/25 02:00 37.4 C 80 27 H 92 Nasal Cannula 6 08/22/25 02:00 121/57 L 08/22/25 01:00 37.3 C 72 25 H 102/69 96 Nasal Cannula 6 08/22/25 00:00 37.3 C 75 27 H 107/35 L 96 Nasal Cannula 6 08/21/25 23:01 101/79 08/21/25 23:00 37.4 C 75 26 H 95 Nasal Cannula 6 08/21/25 22:50 76 FiO2 08/22/25 08:55 50 08/22/25 08:45 08/22/25 08:30 08/22/25 08:30 08/22/25 08:15 08/22/25 08:00 08/22/25 08:00 08/22/25 08:00 08/22/25 07:45 08/22/25 07:38 60 08/22/25 07:30 08/22/25 07:30 08/22/25 07:30 08/22/25 07:15 08/22/25 07:00 08/22/25 07:00 08/22/25 06:15 60 08/22/25 06:02 08/22/25 06:00 60 08/22/25 05:45 60 08/22/25 05:30 60 08/22/25 05:30 08/22/25 05:20 70 08/22/25 05:15 70 08/22/25 05:00 70 08/22/25 05:00 08/22/25 04:45 08/22/25 04:45 70 08/22/25 04:32 60 08/22/25 04:30 08/22/25 04:30 70 08/22/25 04:17 08/22/25 04:15 70 08/22/25 04:13 08/22/25 03:48 40 08/22/25 03:45 40 08/22/25 03:39 08/22/25 03:39 40 08/22/25 03:39 40 08/22/25 03:30 40 08/22/25 03:01 08/22/25 03:00 08/22/25 02:30 08/22/25 02:00 08/22/25 02:00 08/22/25 01:00 08/22/25 00:00 08/21/25 23:01 08/21/25 23:00 08/21/25 22:50 Laboratory Results 08/21/25 18:05 Gram Stain - Final Sputum, Expectorated Sputum Culture - Pending 08/20/25 18:57 Aerobic Blood Culture - Preliminary Blood No growth in Aerobic bottle after 24 hours. Anaerobic Blood Culture - Final 08/20/25 18:30 Aerobic Blood Culture - Preliminary Blood No growth in Aerobic bottle after 24 hours. Anaerobic Blood Culture - Preliminary No growth in Anaerobic bottle after 24 hours. 08/22/25 08/22/25 08/21/25 08:09 04:42 20:28 WBC 16.47 H RBC 3.80 L Hgb 11.8 L Hct 37.0 MCV 97.4 MCH 31.1 MCHC 31.9 L RDW Std Deviation 52.0 H RDW Coeff of Rosy 14.5 Plt Count 263 MPV 9.8 Sodium 142 Potassium 3.8 Chloride 106 Carbon Dioxide 23 Anion Gap 13 H BUN 29 H Creatinine 1.44 H Est Cr Clr Drug Dosing 31.4 eGFR 36.31 BUN/Creatinine Ratio 20.1 H Glucose 128 H POC Glucose 114 H 124 H Calcium 9.3 Magnesium 2.1 Troponin I High Sens Urine Color Urine Appearance Urine pH Ur Specific Sherwood Urine Protein Urine Glucose (UA) Urine Ketones Urine Blood Urine Nitrite Urine Bilirubin Urine Urobilinogen Ur Leukocyte Esterase Urine WBC (Auto) Urine RBC (Auto) U Hyaline Cast (Auto) U Epithel Cells (Auto) Urine Bacteria (Auto) Urine Comment 08/21/25 08/21/25 08/21/25 15:26 10:35 10:34 WBC RBC Hgb Hct MCV MCH MCHC RDW Std Deviation RDW Coeff of Rosy Plt Count MPV Sodium Potassium Chloride Carbon Dioxide Anion Gap BUN Creatinine Est Cr Clr Drug Dosing eGFR BUN/Creatinine Ratio Glucose POC Glucose 110 H 127 H Calcium Magnesium Troponin I High Sens Urine Color Yellow Urine Appearance Clear Urine pH 6.5 Ur Specific Sherwood 1.008 Urine Protein Negative Urine Glucose (UA) Negative Urine Ketones Negative Urine Blood 1+ H Urine Nitrite Negative Urine Bilirubin Negative Urine Urobilinogen Negative Ur Leukocyte Esterase Trace H Urine WBC (Auto) 6-10 H Urine RBC (Auto) 6-10 H U Hyaline Cast (Auto) 0-2 U Epithel Cells (Auto) 0-2 Urine Bacteria (Auto) None Seen Urine Comment 08/21/25 04:34 WBC RBC Hgb Hct MCV MCH MCHC RDW Std Deviation RDW Coeff of Rosy Plt Count MPV Sodium Potassium Chloride Carbon Dioxide Anion Gap BUN Creatinine Est Cr Clr Drug Dosing eGFR BUN/Creatinine Ratio Glucose POC Glucose Calcium Magnesium Troponin I High Sens 242.4 H* D Urine Color Urine Appearance Urine pH Ur Specific Sherwood Urine Protein Urine Glucose (UA) Urine Ketones Urine Blood Urine Nitrite Urine Bilirubin Urine Urobilinogen Ur Leukocyte Esterase Urine WBC (Auto) Urine RBC (Auto) U Hyaline Cast (Auto) U Epithel Cells (Auto) Urine Bacteria (Auto) Urine Comment Diagnostic Findings Chest X-Ray 08/22/25 05:15 EXAM: XR chest 1V portable CLINICAL HISTORY: Eval lung martinez- pulm edema vs. infective TECHNIQUE: X-ray image of the chest was obtained in the AP projection. COMPARISON: 08/21/2025 CR. FINDINGS: Pulmonary Parenchyma: Mild progression of diffuse airspace opacification is noted involving both lungs and is currently more apparent along the right upper lung zone, with prominent bronchovascular markings that are suggestive of evolving pulmonary edema or infection. Blunting of the right costophrenic angle, pleural effusion, and pleural thickening are present. The site of concern highlighted in the available images in "red" appears to be an artifact, with overlapping rib and clavicular bony edges. No evidence of pneumothorax is seen in the right lung apex. A follow-up radiograph in optimal positioning is advised. Heart and Mediastinum: Cardiomegaly is seen. No mediastinal widening or masses are identified. No hilar or mediastinal lymphadenopathy is present. Bony Thorax: The bony thorax appears intact, without fractures or deformities. Sternotomy sutures are in situ. Multiple metallic clips are identified in the left axilla. Soft Tissues: The soft tissues overlying the chest wall are unremarkable. Chest leads are in situ. IMPRESSION: 1. Interval progression of bilateral airspace opacification, currently more apparent along the upper lung zones, is suggestive of evolving pulmonary edema or pneumonic consolidations in a post-surgical status. Clinical correlation is needed. 2. Blunting of the right costophrenic angle, with possible pleural effusion and pleural thickening, is present. 3. The site of concern highlighted in the available images in "red" appears to be an artifact, with overlapping rib and clavicular bony edges. No evidence of pneumothorax is seen in the right lung apex. A follow-up radiograph in optimal positioning is advised. Electronically signed by Jatinder Hannah 08-22-2025 08:09 AM Medications Administered Home Medications Medication Instructions Recorded Confirmed Last Taken amlodipine 5 mg tablet 5 mg PO QAM 03/31/22 08/20/25 08/20/25 apixaban 5 mg tablet (Eliquis) 5 mg PO BID 03/31/22 08/20/25 08/20/25 08:00 aspirin 81 mg tablet,delayed 81 mg PO HS 03/31/22 08/20/25 08/19/25 release (Adult Low Dose Aspirin) esomeprazole magnesium 20 mg 20 mg PO QAM 03/31/22 08/20/25 08/20/25 capsule,delayed release (Nexium) losartan 50 mg tablet 50 mg PO BID 03/31/22 08/20/25 08/20/25 08:00 multivitamin 1 tab PO QAM 03/31/22 08/20/25 08/20/25 omega [id number]-fish oil 1,000 mg 1 cap PO BID 03/31/22 08/20/25 08/20/25 08:00 (120 mg-180 mg) capsule (Fish Oil) rosuvastatin 5 mg tablet (Crestor) 5 mg PO HS 03/31/22 08/20/25 08/19/25 alendronate 70 mg tablet (Fosamax) 70 mg PO Q7D 05/10/22 08/20/25 08/17/25 furosemide 20 mg tablet 40 mg PO DAILY 09/30/22 08/20/25 08/20/25 amoxicillin 500 mg capsule 2,000 mg PO DIRECTED PRN 1 HR 08/20/25 08/20/25 Unknown PRIOR TO DENTAL PROCEDURES cefdinir 300 mg capsule 300 mg PO BID 08/20/25 08/20/25 Unknown cranberry extract 500 mg capsule 500 mg PO BID 08/20/25 08/20/25 08/20/25 08:00 (Cranberry Concentrate) estradiol 0.01% (0.1 mg/gram) 1 applic vaginal DIRECTED 08/20/25 08/20/25 Unknown vaginal cream levothyroxine 75 mcg tablet 75 mcg PO DAILYBB 08/20/25 08/20/25 08/20/25 magnesium oxide 400 mg PO HS 08/20/25 08/20/25 08/19/25 metoprolol succinate 50 mg 50 mg PO QPM 08/20/25 08/20/25 08/19/25 tablet,extended release 24 hr mirabegron 50 mg tablet,extended 50 mg PO QAM 08/20/25 08/20/25 08/20/25 release 24 hr (Myrbetriq) polyethylene glycol 3350 17 17 g PO DAILY PRN Constipation 08/20/25 08/20/25 Unknown gram/dose oral powder (Miralax) ropinirole 0.5 mg tablet 0.5 mg PO HS 08/20/25 08/20/25 08/19/25 sulfamethoxazole 800 1 tab PO ONCE 08/20/25 08/20/25 Unknown mg-trimethoprim 160 mg tablet (Bactrim DS) Active Medications Generic Name Dose Route Start Last Admin Trade Name Freq PRN Reason Stop Dose Admin Amlodipine Besylate 5 mg 08/21/25 09:00 08/22/25 08:39 Amlodipine Besylate 5 Mg Tab PO 09/20/25 08:59 5 mg QAM ANTONIETTA Administration Apixaban 5 mg 08/21/25 09:00 08/22/25 08:38 Apixaban 5 Mg Tablet PO 09/20/25 08:59 5 mg BID ANTONIETTA Administration Azithromycin 250 mg 08/20/25 20:35 08/22/25 08:38 Azithromycin 250 Mg Tab PO 08/25/25 20:34 250 mg QAM ANTONIETTA Administration Furosemide 40 mg 08/20/25 21:00 08/22/25 08:38 Furosemide 40 Mg/4 Ml Vial IV 09/19/25 20:59 40 mg BID ANTONIETTA Administration Ceftriaxone Sodium 2,000 mg in 50 mls @ 100 mls/hr 08/21/25 11:00 08/21/25 11:13 Rocephin IV 08/26/25 10:59 Infused Q24H ANTONIETTA Infusion Nitroglycerin/Dextrose 250 mls @ 0 mls/hr 08/22/25 04:45 08/22/25 07:57 Nitroglycerin/D5w 100 Mcg/Ml IV 09/21/25 04:44 0 mcg/min .Q0M ANTONIETTA 0 mls/hr Titration Protocol 0 MCG/MIN Levothyroxine Sodium 75 mcg 08/21/25 06:30 08/22/25 08:38 Levothyroxine Sodium 75 Mcg Tablet PO 09/20/25 06:29 75 mcg DAILYBB ANTONIETTA Administration Losartan Potassium 50 mg 08/21/25 09:00 08/22/25 08:38 Losartan Potassium 50 Mg Tab PO 09/20/25 08:59 50 mg QAM ANTONIETTA Administration Metoprolol Succinate 50 mg 08/21/25 21:00 08/21/25 20:41 Metoprolol Succ 50mg Ext Rel Tab PO 09/20/25 20:59 50 mg HS ANTONIETTA Administration Miscellaneous 1 each 08/20/25 21:00 08/22/25 08:26 Icu Protocol For Hyperglycemia N/A 08/22/25 20:59 1 each ACHS ANTONIETTA Administration Pantoprazole Sodium 40 mg 08/21/25 09:00 08/22/25 08:38 Pantoprazole 40 Mg Tab PO 09/20/25 08:59 40 mg QAM ANTONIETTA Administration Ropinirole HCl 0.5 mg 08/21/25 21:00 08/21/25 20:41 Ropinirole Hcl 0.25 Mg Tablet PO 09/20/25 20:59 0.5 mg HS ANTONIETTA Administration Rosuvastatin Calcium 5 mg 08/21/25 21:00 08/21/25 20:41 Rosuvastatin Calcium 5 Mg Tab PO 09/20/25 20:59 5 mg HS ANTONIETTA Administration Coding Level of Care Code 68454 CRITICAL CARE 1ST 30-74M Diagnoses Acute hypoxic respiratory failure J96.01 Hypertensive emergency I16.1 Acute exacerbation of CHF (congestive heart failure) I50.9 Heart failure type: unspecified Fever, unspecified fever cause R50.9 Fever type: unspecified Time Spent (min) 65 (3) Acute exacerbation of CHF (congestive heart failure) Heart failure type: unspecified Qualified Code(s): I50.9 - Heart failure, unspecified (4) Fever Fever type: unspecified Qualified Code(s): R50.9 - Fever, unspecified
[2025-08-22] MEDS: POLYETHYLENE (MIRALAX) 17 GM PACK PO SCH (11:10)
[2025-08-22] MEDS: DOCUSATE SODIUM 100 MG CAP PO SCH (11:43)
--- NOTE | 2025-08-22 12:12 | Hospitalist Progress Note ---
Date of Service August 22, 2025 Assessment & Plan (1) Acute hypoxic respiratory failure: (2) Acute on chronic heart failure with mildly reduced ejection fraction (HFmrEF): (3) Hypertensive urgency: (4) Demand ischemia of myocardium: (5) CKD (chronic kidney disease), stage III: (6) Hypothyroid: (7) Prediabetes: (8) Heart failure due to valvular disease: (9) Pulmonary hypertension: (10) Atrial fibrillation with rapid ventricular response: (11) Aortic stenosis, moderate: (12) Mitral regurgitation and mitral stenosis: Plan Patient 84-year-old female with pulmonary edema due to multiple factors including valvular heart failure, pulmonary hypertension, uncontrolled hypertension, atrial fibrillation with rapid ventricular response. Patient is responding to BiPAP and IV diuretics but still requires hospital level care and interventions. Consult cardiology, for further input on management of her pulmonary edema in the setting of her multiple cardiac issues. She does follow with them as an outpatient. Monitor electrolytes and replace as needed Continue BiPAP as needed, titrate to nasal cannula Continue antibiotics for possible's pneumonia in the setting of fevers earlier. Cultures no growth to date Phone conversation up to to patient's daughter. She shared that patient may be a candidate for a new procedure on her valve as suggested by Dr. Fontenot. Admission and Anticipated Discharge Date Admission Date: August 20, 2025 Subjective Events of last evening noted, patient acute onset of shortness of breath and more significant hypertension overnight. Imaging was suggestive of worsening or recurrent pulmonary edema needed to be placed back on BiPAP. This morning she is feeling better breathing a little easier. Physical Exam Physical Exam: Constitutional: Alert, nontoxic HEENT: Mucous membranes moist. Lungs: Decreased breath sounds, Rales throughout CV: S1-S2, irregular, systolic blowing murmur Abdomen: Soft, nontender, nondistended Extremities: No significant edema Neuro: No focal deficits Psych: Cooperative, normal mood Results & Data Results & Data Vital Signs (Past 12 Hours) Vital Signs Temp Pulse Resp BP Pulse Ox O2 Del Method O2 Flow Rate 08/22/25 11:30 37.3 C 94 H 21 92 08/22/25 11:30 132/67 08/22/25 11:30 132/67 08/22/25 11:30 132/67 08/22/25 11:01 138/79 08/22/25 11:00 37.3 C 105 H 27 H 96 11/13/25 10:54 BiPAP 08/22/25 10:30 37.4 C 88 25 H 97 08/22/25 10:30 117/57 L 08/22/25 10:30 117/57 L 08/22/25 10:30 117/57 L 08/22/25 10:30 117/57 L 08/22/25 10:30 117/57 L 08/22/25 10:00 121/69 08/22/25 10:00 121/69 08/22/25 10:00 121/69 08/22/25 10:00 37.3 C 89 24 99 08/22/25 09:30 124/60 08/22/25 09:30 124/60 08/22/25 09:30 37.3 C 84 26 H 97 08/22/25 09:00 127/66 08/22/25 09:00 127/66 08/22/25 09:00 37.1 C 103 H 23 98 08/22/25 08:55 99 BiPAP 08/22/25 08:45 37.3 C 90 27 H 92 08/22/25 08:30 37.4 C 94 H 26 H 97 08/22/25 08:30 131/62 08/22/25 08:15 37.4 C 87 26 H 98 08/22/25 08:00 37.5 C 86 28 H 97 08/22/25 08:00 112/81 08/22/25 08:00 93 H 08/22/25 07:45 37.6 C H 86 38 H 98 08/22/25 07:38 BiPAP 08/22/25 07:30 130/77 08/22/25 07:30 130/77 08/22/25 07:30 37.6 C H 92 H 34 H 94 08/22/25 07:15 37.8 C H 89 26 H 97 08/22/25 07:00 119/57 L 08/22/25 07:00 37.7 C H 96 H 23 98 08/22/25 06:15 38.3 C H 94 H 28 H 97 BiPAP 08/22/25 06:02 115/53 L 08/22/25 06:00 38.7 C H 103 H 26 H 98 BiPAP 08/22/25 05:45 38.7 C H 101 H 32 H 98 BiPAP 08/22/25 05:30 38.8 C H 114 H 30 H 99 BiPAP 08/22/25 05:30 127/66 08/22/25 05:20 39.1 C H 118 H 27 H 112/70 97 BiPAP 08/22/25 05:15 39.1 C H 117 H 36 H 96 BiPAP 08/22/25 05:00 39.1 C H 119 H 18 95 BiPAP 08/22/25 05:00 139/89 08/22/25 04:45 120/79 08/22/25 04:45 38.7 C H 115 H 35 H 94 BiPAP 08/22/25 04:32 110 H 39 H 95 08/22/25 04:30 160/85 H 08/22/25 04:30 38.7 C H 117 H 35 H 94 BiPAP 08/22/25 04:17 142/89 H 08/22/25 04:15 38.1 C H 113 H 40 H 91 BiPAP 08/22/25 04:13 170/93 H 08/22/25 03:48 106 H 29 H 169/79 H 93 BiPAP 08/22/25 03:45 38.0 C H 113 H 36 H 93 BiPAP 08/22/25 03:39 161/76 H 08/22/25 03:39 161/76 H 93 BiPAP 08/22/25 03:39 37.9 C H 107 H 27 H 94 BiPAP 08/22/25 03:30 37.8 C H 101 H 39 H 85 L BiPAP 08/22/25 03:01 147/56 H 08/22/25 03:00 37.6 C H 92 H 30 H 90 Nasal Cannula 6 08/22/25 02:30 37.4 C 88 34 H 93 Nasal Cannula 6 08/22/25 02:00 37.4 C 80 27 H 92 Nasal Cannula 6 08/22/25 02:00 121/57 L 08/22/25 01:00 37.3 C 72 25 H 102/69 96 Nasal Cannula 6 08/22/25 00:00 37.3 C 75 27 H 107/35 L 96 Nasal Cannula 6 FiO2 08/22/25 11:30 08/22/25 11:30 08/22/25 11:30 08/22/25 11:30 08/22/25 11:01 08/22/25 11:00 08/22/25 10:54 08/22/25 10:30 08/22/25 10:30 08/22/25 10:30 08/22/25 10:30 08/22/25 10:30 08/22/25 10:30 08/22/25 10:00 08/22/25 10:00 08/22/25 10:00 08/22/25 10:00 08/22/25 09:30 08/22/25 09:30 08/22/25 09:30 08/22/25 09:00 08/22/25 09:00 08/22/25 09:00 08/22/25 08:55 50 08/22/25 08:45 08/22/25 08:30 08/22/25 08:30 08/22/25 08:15 08/22/25 08:00 08/22/25 08:00 08/22/25 08:00 08/22/25 07:45 08/22/25 07:38 60 08/22/25 07:30 08/22/25 07:30 08/22/25 07:30 08/22/25 07:15 08/22/25 07:00 08/22/25 07:00 08/22/25 06:15 60 08/22/25 06:02 08/22/25 06:00 60 08/22/25 05:45 60 08/22/25 05:30 60 08/22/25 05:30 08/22/25 05:20 70 08/22/25 05:15 70 08/22/25 05:00 70 08/22/25 05:00 08/22/25 04:45 08/22/25 04:45 70 08/22/25 04:32 60 08/22/25 04:30 08/22/25 04:30 70 08/22/25 04:17 08/22/25 04:15 70 08/22/25 04:13 08/22/25 03:48 40 08/22/25 03:45 40 08/22/25 03:39 08/22/25 03:39 40 08/22/25 03:39 40 08/22/25 03:30 40 08/22/25 03:01 08/22/25 03:00 08/22/25 02:30 08/22/25 02:00 08/22/25 02:00 08/22/25 01:00 08/22/25 00:00 Diagnostic Findings Reviewed imaging, laboratory and diagnostic studies. Pertinent findings as below. WBCs 16.4 Hemoglobin 11.8 Platelets of 263 Electrolytes stable Creatinine 1.44 Personally reviewed chest x-ray from today, increasing pulmonary edema when compared to previous Reviewed echocardiogram report, ejection fraction 55 to 60%, moderate aortic stenosis, severe mitral regurgitation, moderate mitral stenosis, moderate tricuspid regurgitation, pulmonary pressure 45 mmHg Blood cultures no growth Sputum culture no significant growth
[2025-08-22] MEDS: ACETAMINOPHEN 325 MG TAB PO PRN (16:59)
[2025-08-23 04:56] LABS: Hematocrit (blood only) 31.1 % (37.0-47.0); Hemoglobin 10.1 g/dL (12.0-16.0); Mean Corpuscular Hemoglobin 31.1 pg (25.0-34.0); Mean Corpuscular Volume 95.7 fL (80.0-100.0); Platelet Count 200 K/uL (130-400); RDW Standard Deviation 49.6 fL (36.4-46.3); Red Blood Count 3.25 M/uL (4.20-5.40); White Blood Count 9.77 K/ul (4.8-10.8)
[2025-08-23 05:15] LABS: Anion Gap 11.0 (3-11); Blood Urea Nitrogen 30.0 mg/dl (6-23); Calcium 9.0 mg/dl (8.6-10.3); Carbon Dioxide 22.0 mmol/L (21-32); Chloride 109.0 mmol/L (98-107); Creatinine Clr Calc Pharmacy 35.4 ml/min; Glucose 90.0 mg/dl (70-99(Fasting)); Magnesium 2.2 mg/dl (1.7-2.4); Potassium 3.3 mmol/L (3.5-5.1); Sodium 142.0 mmol/L (136-145)
[2025-08-23] MEDS: ICU ELECTROLYTE REPLACEMENT PROTOCOL SCH (06:21)
[2025-08-23] MEDS: POTASSIUM CHLORIDE CRTAB 20 MEQ TABCR PO SCH (07:35)
--- NOTE | 2025-08-23 08:28 | Electrocardiogram Report ---
Test Reason : Blood Pressure : */* mmHG Vent. Rate : 88 BPM Atrial Rate : * BPM P-R Int : * ms QRS Dur : 136 ms QT Int : 376 ms P-R-T Axes : * -80 122 degrees QTcB Int : 454 ms Atrial fibrillation Left axis deviation Left bundle branch block Abnormal ECG When compared with ECG of 13-May-2022 14:04, Atrial fibrillation has replaced Sinus rhythm Left bundle branch block is now Present Confirmed by Lukas Alejandre ([id number]) on 08/23/2025 8:28:43 AM Referred By: REFERRED SELF Confirmed By: Lukas Alejandre
--- NOTE | 2025-08-23 08:35 | XRay Report ---
EXAM: XR chest 1V portable CLINICAL HISTORY: Eval lung martinez- pulm edema vs. infective TECHNIQUE: An X-ray image of the chest is obtained in AP projection. COMPARISON: 08/22/2025 CR. FINDINGS: Pulmonary Parenchyma: Almost no time interval changes of the diffuse confluent airspace opacification are noted involving both lungs and is currently more apparent along the upper lung zones, with prominent bronchovascular markings still noted Blunting of right costophrenic angle, probably a small volume pleural effusion and pleural thickening are present. The left costophrenic angle is now seen as blunted, as well as suggestive of a pleural process No evidence of pneumothorax Heart and Mediastinum: Cardiomegaly is seen. No mediastinal widening or masses are identified. No hilar or mediastinal lymphadenopathy is present. Bony Thorax: The bony thorax appears intact, without fractures or deformities. Sternotomy sutures are in situ. Multiple metallic clips are identified in the left axilla, mediastinum, and right neck region. Soft Tissues: The soft tissues overlying the chest wall are unremarkable. EKG Chest leads are noted. IMPRESSION: 1. No evidence of pneumothorax 2. Redemonstration of the upper zone predominant pneumonic consolidations in both lungs, appearing slightly interval regressive in the right lung and interval progressive in the left lung since prior of 08/22/2025 3. Still noted, Blunting of the right costophrenic angle, with possible pleural effusion and pleural thickening, is present. 4. The left costophrenic angle is now seen as blunted, as well as suggestive of a pleural process. Electronically signed by Jatinder Hannah 08-23-2025 08:35 AM
--- NOTE | 2025-08-23 08:57 | Critical Care Progress Note ---
Date of Service August 23, 2025 Assessment & Plan (1) Acute hypoxic respiratory failure: Plan: * Initially suspected on basis of flash pulmonary edema * Cannot rule contribution from pneumonia in patient with fever, leukocytosis, and asymmetric infiltrates (more on left) (2) Hypertensive emergency: Plan: * Resolved (3) Acute exacerbation of CHF (congestive heart failure): Plan: * HFpEF with Aortic and Mitral stenosis and regurgitation (4) Fever: Plan Need for ICU: Patient presented with acute hypoxemic respiratory failure suspected on the basis of flash pulmonary edema. Recurrent distress with need for NIV. Neuro: No issues at this time Post CEA Cardiac: Hypertensive emergency on presentation: recurred at night, responded to Hydralazine. Continue antihypertensives. Pulmonary edema on presentation Moderate and AI, Moderate MS and Severe MR Preserved EF Suggestion of Pulmonary Hypertension, most likely secondary to HFpEF Paroxysmal AF: Continue Eliquis and Metoprolol for rate-control Peripheral vascular disease Post CABG Possible Type 2 NSTEMI Respiratory: Acute hypoxemic respiratory failure Cannot rule out pneumonia: abnormal CXR and fever Abnormal sputum, but no virulent organism growth at this point GI: GERD RENAL/LYTES: CKD Slight increase Creatinine, but may have to be tolerated to avoid volume- overload Recent Cystoscopy prior to presentation ENDO: No issues HEME: Leukocytosis resolved ID: Fever, Leukocytosis Abnormal CXR suspicious for possible pneumonia Abnormal sputum, but no virulent organisms Multi-valve abnormalities and recent instrumentation, but unlikely endocarditis with negative blood cultures Continue Rocephin and Zithromax Feeding/Fluids: Cardiac diet Analgesia: Not needed Sedation: Not needed DVT prophylaxis: On Therapeutic-dose Eliquis Head-up: Not applicable Ulcer Prophylaxis: On Protonix Glycemic Control: No issues Sp. Br. Trial: Not applicable Bowel Care: Colace Ind. Catheters: Ayala catheter for accurate I/O; peripheral lines Antibiotics: Rocephin, Zithromax Code-Status: Full Code Disposition: Continue ICU until patient stable and not at risk of recurrent respiratory failure Admission and Anticipated Discharge Date Admission Date: August 20, 2025 Subjective The patient is a very pleasant 84-year-old female who presented to the Emergency Department for sudden onset of severe shortness of breath following a urology appointment and cystoscopy earlier the same day. Her daughters, who provided most of the history at the bedside, reported that although she always experienced some baseline dyspnea, her symptoms worsened significantly after the procedure. She initially attempted to rest after leaving the office, but her shortness of breath persisted and intensified, prompting her family to bring her to the hospital. She denied chest pain. On arrival, she appeared ill and in moderate distress, able to answer only one- word questions. She was found to be hypoxic with an oxygen saturation of 80%, hypertensive with a systolic blood pressure of 200 mmHg, and tachycardic. Physical examination revealed bilateral rhonchi and pitting edema in the lower extremities. She was placed on a nonrebreather mask and subsequently transitioned to BiPAP with gradual improvement in oxygenation and respiratory distress. Initial laboratory studies showed mild hypokalemia, a creatinine of 1.27, mildly elevated troponin, and a BNP of 800. Chest X-ray demonstrated cephalization and bilateral pulmonary edema, worse on the left. She was treated with sublingual nitroglycerin, Nitropaste, a nitroglycerin drip, and IV Lasix. The patient was admitted to the ICU for acute hypoxic respiratory failure secondary to flash pulmonary edema in the setting of a hypertensive emergency, consistent with a SCAPE (sympathetic crashing acute pulmonary edema) picture. Her management included aggressive diuresis, vasodilator therapy, and noninvasive ventilatory support. Infectious etiologies were considered less likely given the acute presentation and absence of fever or infectious symptoms, but empiric antibiotics were administered due to SIRS criteria. 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 Note from 08/21/2025: The patient was doing well this am. She denied dyspnea or chest discomfort. Low-grade temperature of unclear etiology at this time, but cannot rule out pneumonia with asymmetric pulmonary infiltrates. Echo with biatrial enlargement, moderate and AI, moderate MS and severe MR. Home meds resumed. Note from 08/22/2025: Recurrent episode of acute hypoxemic respiratory failure during the night. Possibly associated with tachycardia and fever. Responded to Hydralazine, BiPAP, Tylenol. Doing a little better this am. Needing BiPAP from time to time. Slight increase in Creatinine. Seen by Cardiology: may have to accept some elevation in Creatinine to avoid volume-overload. CXR starting to look more like pneumonia. Abnormal sputum but no virulent organisms at this time. Continue Rocephin and Zithromax. At the time of the interview the patient denied dyspnea or chest discomfort at rest. Note from 08/23/2025: Seems to be doing better today. Creatinine back down to 1.25 today. Heart rate 90s to low-100s. Cardiology recommended against increasing Beta-blockers to allow for renal perfusion. CXR looking more like pneumonia. Will finish antibiotics course. Review of Systems Review of Systems: All systems reviewed & are unremarkable except as noted in HPI & below Physical Exam Physical Exam: General: In no acute distress, using Oxygenvia nasal cannula. Neck: No palpable masses or adenopathy. Respiratory: Diffusely decreased breath sounds, no wheezing; scattered inspiratory crackles. No use of accessory muscles and no prolonged exhalation. Cardiac: Distant sounds, regular rhythm, Grade 2 systolic murmur heard throughout the precordium, no gallops, no rubs; could not appreciate JV pulse elevation. GI: Soft, nontender. Extremities No cyanosis,1+ edema. Neuro: No gross motor deficits. Seems appropriate. No facial-droop. Speech is clear. Results & Data Results & Data Vital Signs (Past 12 Hours) Vital Signs Temp Pulse Resp BP Pulse Ox O2 Del Method O2 Flow Rate 08/23/25 02:00 37.4 C 76 25 H 95 08/23/25 01:30 37.4 C 86 24 97 08/23/25 01:30 126/60 08/23/25 01:01 128/52 L 08/23/25 01:00 37.2 C 79 31 H 97 08/23/25 00:31 120/65 08/23/25 00:30 37.2 C 88 22 96 08/23/25 00:09 83 08/23/25 00:00 37.3 C 85 26 H 94 Nasal Cannula 6 08/23/25 00:00 133/78 08/22/25 23:30 37.3 C 82 21 98 08/22/25 23:30 118/75 08/22/25 23:00 123/70 08/22/25 23:00 123/70 08/22/25 22:30 37.4 C 79 23 98 08/22/25 22:30 125/60 08/22/25 22:00 114/53 L 08/22/25 22:00 37.4 C 82 22 96 BiPAP 08/22/25 21:30 37.4 C 79 26 H 96 08/22/25 21:30 129/56 L 08/22/25 21:24 82 22 98 08/22/25 21:00 37.5 C 86 37 H 94 08/22/25 21:00 119/69 08/22/25 21:00 Nasal Cannula 6 FiO2 08/23/25 02:00 08/23/25 01:30 08/23/25 01:30 08/23/25 01:01 08/23/25 01:00 08/23/25 00:31 08/23/25 00:30 08/23/25 00:09 08/23/25 00:00 08/23/25 00:00 08/22/25 23:30 08/22/25 23:30 08/22/25 23:00 08/22/25 23:00 08/22/25 22:30 08/22/25 22:30 08/22/25 22:00 08/22/25 22:00 40 08/22/25 21:30 08/22/25 21:30 08/22/25 21:24 40 08/22/25 21:00 08/22/25 21:00 08/22/25 21:00 Laboratory Results 08/20/25 18:57 Aerobic Blood Culture - Preliminary Blood No growth in Aerobic bottle after 48 hours. Anaerobic Blood Culture - Final 08/20/25 18:30 Aerobic Blood Culture - Preliminary Blood No growth in Aerobic bottle after 48 hours. Anaerobic Blood Culture - Preliminary No growth in Anaerobic bottle after 48 hours. 08/21/25 18:05 Gram Stain - Final Sputum, Expectorated Sputum Culture - Preliminary Scant normal perez present; Final report to follow. 08/23/25 08/22/25 08/22/25 04:36 20:24 16:03 WBC 9.77 RBC 3.25 L Hgb 10.1 L Hct 31.1 L MCV 95.7 MCH 31.1 MCHC 32.5 RDW Std Deviation 49.6 H RDW Coeff of Rosy 14.3 Plt Count 200 MPV 9.4 Sodium 142 Potassium 3.3 L Chloride 109 H Carbon Dioxide 22 Anion Gap 11 BUN 30 H Creatinine 1.27 H Est Cr Clr Drug Dosing 35.4 eGFR 42.22 BUN/Creatinine Ratio 23.6 H Glucose 90 POC Glucose 104 H 112 H Calcium 9.0 Phosphorus 3.6 Magnesium 2.2 Procalcitonin 2.70 H Urine Legionella Ag 08/22/25 08/21/25 12:44 10:35 WBC RBC Hgb Hct MCV MCH MCHC RDW Std Deviation RDW Coeff of Rosy Plt Count MPV Sodium Potassium Chloride Carbon Dioxide Anion Gap BUN Creatinine Est Cr Clr Drug Dosing eGFR BUN/Creatinine Ratio Glucose POC Glucose 137 H Calcium Phosphorus Magnesium Procalcitonin Urine Legionella Ag SEE NOTE Diagnostic Findings Chest X-Ray 08/23/25 05:15 EXAM: XR chest 1V portable CLINICAL HISTORY: Eval lung martinez- pulm edema vs. infective TECHNIQUE: An X-ray image of the chest is obtained in AP projection. COMPARISON: 08/22/2025 CR. FINDINGS: Pulmonary Parenchyma: Almost no time interval changes of the diffuse confluent airspace opacification are noted involving both lungs and is currently more apparent along the upper lung zones, with prominent bronchovascular markings still noted Blunting of right costophrenic angle, probably a small volume pleural effusion and pleural thickening are present. The left costophrenic angle is now seen as blunted, as well as suggestive of a pleural process No evidence of pneumothorax Heart and Mediastinum: Cardiomegaly is seen. No mediastinal widening or masses are identified. No hilar or mediastinal lymphadenopathy is present. Bony Thorax: The bony thorax appears intact, without fractures or deformities. Sternotomy sutures are in situ. Multiple metallic clips are identified in the left axilla, mediastinum, and right neck region. Soft Tissues: The soft tissues overlying the chest wall are unremarkable. EKG Chest leads are noted. IMPRESSION: 1. No evidence of pneumothorax 2. Redemonstration of the upper zone predominant pneumonic consolidations in both lungs, appearing slightly interval regressive in the right lung and interval progressive in the left lung since prior of 08/22/2025 3. Still noted, Blunting of the right costophrenic angle, with possible pleural effusion and pleural thickening, is present. 4. The left costophrenic angle is now seen as blunted, as well as suggestive of a pleural process. Electronically signed by Jatinder Hannah 08-23-2025 08:35 AM Medications Administered Home Medications Medication Instructions Recorded Confirmed Last Taken amlodipine 5 mg tablet 5 mg PO QAM 03/31/22 08/20/25 08/20/25 apixaban 5 mg tablet (Eliquis) 5 mg PO BID 03/31/22 08/20/25 08/20/25 08:00 aspirin 81 mg tablet,delayed 81 mg PO HS 03/31/22 08/20/25 08/19/25 release (Adult Low Dose Aspirin) esomeprazole magnesium 20 mg 20 mg PO QAM 03/31/22 08/20/25 08/20/25 capsule,delayed release (Nexium) losartan 50 mg tablet 50 mg PO BID 03/31/22 08/20/25 08/20/25 08:00 multivitamin 1 tab PO QAM 03/31/22 08/20/25 08/20/25 omega 2-efp-vau-fish oil 1,000 mg 1 cap PO BID 03/31/22 08/20/25 08/20/25 08:00 (120 mg-180 mg) capsule (Fish Oil) rosuvastatin 5 mg tablet (Crestor) 5 mg PO HS 03/31/22 08/20/25 08/19/25 alendronate 70 mg tablet (Fosamax) 70 mg PO Q7D 05/10/22 08/20/25 08/17/25 furosemide 20 mg tablet 40 mg PO DAILY 09/30/22 08/20/25 08/20/25 amoxicillin 500 mg capsule 2,000 mg PO DIRECTED PRN 1 HR 08/20/25 08/20/25 Unknown PRIOR TO DENTAL PROCEDURES cefdinir 300 mg capsule 300 mg PO BID 08/20/25 08/20/25 Unknown cranberry extract 500 mg capsule 500 mg PO BID 08/20/25 08/20/25 08/20/25 08:00 (Cranberry Concentrate) estradiol 0.01% (0.1 mg/gram) 1 applic vaginal DIRECTED 08/20/25 08/20/25 Unknown vaginal cream levothyroxine 75 mcg tablet 75 mcg PO DAILYBB 08/20/25 08/20/25 08/20/25 magnesium oxide 400 mg PO HS 08/20/25 08/20/25 08/19/25 metoprolol succinate 50 mg 50 mg PO QPM 08/20/25 08/20/25 08/19/25 tablet,extended release 24 hr mirabegron 50 mg tablet,extended 50 mg PO QAM 08/20/25 08/20/25 08/20/25 release 24 hr (Myrbetriq) polyethylene glycol 3350 17 17 g PO DAILY PRN Constipation 08/20/25 08/20/25 Unknown gram/dose oral powder (Miralax) ropinirole 0.5 mg tablet 0.5 mg PO HS 08/20/25 08/20/25 08/19/25 sulfamethoxazole 800 1 tab PO ONCE 08/20/25 08/20/25 Unknown mg-trimethoprim 160 mg tablet (Bactrim DS) Active Medications Generic Name Dose Route Start Last Admin Trade Name Freq PRN Reason Stop Dose Admin Acetaminophen 650 mg 08/21/25 18:59 08/23/25 07:36 Acetaminophen 325 Mg Tab PO 09/20/25 09:58 650 mg Q6H PRN Administration pain/fever Amlodipine Besylate 5 mg 08/21/25 09:00 08/23/25 07:36 Amlodipine Besylate 5 Mg Tab PO 09/20/25 08:59 5 mg QAM ANTONIETTA Administration Apixaban 5 mg 08/21/25 09:00 08/23/25 07:36 Apixaban 5 Mg Tablet PO 09/20/25 08:59 5 mg BID ANTONIETTA Administration Azithromycin 250 mg 08/20/25 20:35 08/23/25 07:36 Azithromycin 250 Mg Tab PO 08/25/25 20:34 250 mg QAM ANTONIETTA Administration Docusate Sodium 100 mg 08/22/25 11:15 08/23/25 07:36 Docusate Sodium 100 Mg Cap PO 09/21/25 11:14 100 mg DAILY ANTONIETTA Administration Furosemide 40 mg 08/20/25 21:00 08/23/25 07:36 Furosemide 40 Mg/4 Ml Vial IV 09/19/25 20:59 40 mg BID ANTONIETTA Administration Ceftriaxone Sodium 2,000 mg in 50 mls @ 100 mls/hr 08/21/25 11:00 08/22/25 12:09 Rocephin IV 08/26/25 10:59 Infused Q24H ANTONIETTA Infusion Levothyroxine Sodium 75 mcg 08/21/25 06:30 08/23/25 06:21 Levothyroxine Sodium 75 Mcg Tablet PO 09/20/25 06:29 75 mcg DAILYBB ANTONIETTA Administration Losartan Potassium 50 mg 08/21/25 09:00 08/23/25 07:36 Losartan Potassium 50 Mg Tab PO 09/20/25 08:59 50 mg QAM ANTONIETTA Administration Metoprolol Succinate 50 mg 08/21/25 21:00 08/22/25 20:29 Metoprolol Succ 50mg Ext Rel Tab PO 09/20/25 20:59 50 mg HS ANTONIETTA Administration Miscellaneous 1 each 08/23/25 06:00 08/23/25 06:21 Icu Electrolyte Replacement Protocol N/A 08/30/25 05:59 1 each BID@06,18 ANTONIETTA Administration Protocol Pantoprazole Sodium 40 mg 08/21/25 09:00 08/23/25 07:37 Pantoprazole 40 Mg Tab PO 09/20/25 08:59 40 mg QAM ANTONIETTA Administration Potassium Chloride 40 meq 08/23/25 06:30 08/23/25 07:35 Potassium Chloride Crtab 20 Meq Tabcr PO 08/23/25 10:31 40 meq Q4H ANTONIETTA Administration Ropinirole HCl 0.5 mg 08/21/25 21:00 08/22/25 20:29 Ropinirole Hcl 0.25 Mg Tablet PO 09/20/25 20:59 0.5 mg HS ANTONIETTA Administration Rosuvastatin Calcium 5 mg 08/21/25 21:00 08/22/25 20:29 Rosuvastatin Calcium 5 Mg Tab PO 09/20/25 20:59 5 mg HS ANTONIETTA Administration Coding Level of Care Code 69594 SUB INP/OBS CARE 3/50MIN Diagnoses Acute hypoxic respiratory failure J96.01 Hypertensive emergency I16.1 Acute exacerbation of CHF (congestive heart failure) I50.9 Heart failure type: unspecified Fever, unspecified fever cause R50.9 Fever type: unspecified Time Spent (min) 55 (3) Acute exacerbation of CHF (congestive heart failure) Heart failure type: unspecified Qualified Code(s): I50.9 - Heart failure, unspecified (4) Fever Fever type: unspecified Qualified Code(s): R50.9 - Fever, unspecified
--- NOTE | 2025-08-23 10:07 | Cardiology Progress Note ---
Date of Service August 23, 2025 Assessment & Plan (1) Acute exacerbation of CHF (congestive heart failure): Plan: [place] [address] Cardiology Consultation Signed Patient: KAI VICENTE Admit Date: 08/20/25 MR#: [id number] Att Phy: ArgeliaJose Alfredo DO Acct ID: [id number] Janny Phy: Ynes Meadows MD Date: 1940 Fam Phy: Age: 84 Location: 1E Sex: F Room/Bed: E110-1 Legal Sex: F cc: ~ *NOTICE TO RECEIVING CONSTITUTION PARTY/AGENCY This information is strictly Confidential and protected under [place] law. [place] law prohibits you from making any further disclosure of this information unless further disclosure is expressly permitted by the written consent of the person to whom it pertains or is authorized by law. A general authorization for the release of medical or other information is not sufficient for this purpose. Hospital accepts no responsibility if the information is made available to any other person, INCLUDING THE PATIENT. Date of Consultation August 22, 2025 Assessment & Plan (1) Acute exacerbation of CHF (congestive heart failure): 84 year old female presented with progressive shortness of breath. Although this is her first admission for CHF at [facility], she has had multiple addmissions within [facility] and was admitted twice to [facility] in August, and September,. 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 Significant mitral annular calcification as well as moderate mitral stenosis noted on previous transesophageal echocardiogram as well as severe mitral regurgitation. It was felt that transcatheter [id number] repair (mitral clip) was not an option. Surgical mitral valve replacement was discussed at that time, however the patient was felt to be frail and of high risk for surgical intervention and I agree that this is still true. Another option would been discussed that time for valve clinic assessment was potential for the Tendyne mitral valve prosthesis which is performed via a limited transapical approach. This is not available within the [facility] system and would need for the patient to be stable enough allow for outpatient evaluation at a center involved in performing such procedures or other alternatives. * CXR reveal ongoing pulmonary edema * Bipap as needed * Agree with Furosemide 40 mg IV twice daily. Will have to permit some degree of azotemia. * Continue Eliquis for stroke prophylaxis. Continue metoprolol succinate for rate control. * The patient historically has paroxysmal atrial fibrillation however last documented EKG with sinus rhythm dates back to 2021 , and likely now has permanent AF (2) Fever: Plan: * agree with empiric antibiotic therapy. Dr Beltre rounding 08/24 and 08/25/25. Jose Manuel Fontenot DO Admission and Anticipated Discharge Date Admission Date: August 20, 2025 Subjective Patient seen in cardiology follow up. Was on and off Bipap briefly overnight, but right now on oxygen by nasal cannula and is comfortable. 2.3 liters of urine output noted for 08/22/25. Rate controlled AF in the 80s noted on telemetry. Mild fever of 37.9 this am. Respiratory status slightly improved. Review of Systems Review of Systems: All systems reviewed & are unremarkable except as noted in HPI & below Physical Exam Physical Exam: Temp Pulse Resp BP Pulse Ox O2 Del Method O2 Flow Rate 37.9 C H 88 21 124/73 97 BiPAP 6 08/23/25 09:30 08/23/25 09:30 08/23/25 09:30 08/23/25 09:30 08/23/25 09:30 08/23/25 08:30 08/23/25 07:00 FiO2 40 08/23/25 09:14 Constitutional: + ill appearing (chronically ill in appe arance ) Neck: trachea midline, no thyromegaly Respiratory: no cough and no grunting Auscultation: + diminished lung sounds (decreased BS bilaterally at the bases ) Cardiovascular: Rate/Rhythm: + irregularly irregular Heart Sounds: + murmur (2/6 SM ) Vessels: no JVD Extremities: no edema Gastrointestinal (Abdomen): normal bowel sounds, soft, nontender, no hepatosplenomegaly Skin: no rashes, warm and dry Neurologic: PERRL, EOMI, accommodation nl, no face palsy, no dysarthria Genitourinary: Ayala catheter in place draining clear yellow urine Results & Data Laboratory Results CBC 08/23/25 Range/Units 04:36 WBC 9.77 (4.8-10.8) K/ul RBC 3.25 L (4.20-5.40) M/uL Hgb 10.1 L (12.0-16.0) g/dL Hct 31.1 L (37.0-47.0) % Plt Count 200 (130-400) K/uL Comprehensive Metabolic Panel 08/23/25 Range/Units 04:36 Sodium 142 (136-145) mmol/L Potassium 3.3 L (3.5-5.1) mmol/L Chloride 109 H (98-107) mmol/L Carbon Dioxide 22 (21-32) mmol/L BUN 30 H (6-23) mg/dl Creatinine 1.27 H (0.6-1.2) mg/dl Glucose 90 (70-99(Fasting)) mg/dl Calcium 9.0 (8.6-10.3) mg/dl Intake and Output 08/22/25 08/23/25 08/23/25 22:59 06:59 14:59 Intake Total 500.6 / 500.6 Output Total 465 / 1390 560 / 1390 200 / 200 Balance -465 / -1034.3 -560 / -1034.3 300.6 / 300.6 Intake: IV 0.6 / 0.6 Nitroglycerin/D5w 100Mcg/ml 250 0.6 / 0.6 ml @ 0 MCG/MIN IV .Q0M [facility] Rx# :[id number] Oral 500 / 500 Output: Urine Amount (Catheter) 465 / 1390 560 / 1390 200 / 200 Ayala/Indwelling 465 / 1390 560 / 1390 200 / 200 Other: Weight 88.4 kg Weight Measurement Method Built in [facility] PG Care Time/CCT Total # of Minutes Spent Total Time Spent with Patient: Total time spent is greater than 50% in coordination of care (as documented) at patient's floor/unit and/or counseling patient: Coding Level of Care Code 64647 SUB INP/OBS CARE 3/50MIN Diagnoses Acute exacerbation of CHF (congestive heart failure) I50.9 Heart failure type: unspecified Fever, unspecified fever cause R50.9 Fever type: unspecified (1) Acute exacerbation of CHF (congestive heart failure) Heart failure type: unspecified Qualified Code(s): I50.9 - Heart failure, unspecified (2) Fever Fever type: unspecified Qualified Code(s): R50.9 - Fever, unspecified
--- NOTE | 2025-08-23 10:37 | Hospitalist Progress Note ---
Date of Service August 23, 2025 Assessment & Plan (1) Acute hypoxic respiratory failure: (2) Acute on chronic heart failure with mildly reduced ejection fraction (HFmrEF): (3) Hypertensive urgency: (4) Demand ischemia of myocardium: (5) CKD (chronic kidney disease), stage III: (6) Hypothyroid: (7) Prediabetes: (8) Heart failure due to valvular disease: (9) Pulmonary hypertension: (10) Atrial fibrillation with rapid ventricular response: (11) Aortic stenosis, moderate: (12) Mitral regurgitation and mitral stenosis: Plan 84-year-old female with flash pulmonary edema decompensated heart failure multifactorial including valvular disease. Overall improving. Requiring less time on BiPAP. Still with some low-grade fevers. Continue current antibiotics, WBCs have improved. Question of noninfectious febrile etiology. Continue to observe Continue diuresis With IV Lasix Communication with cardiology, they have been communicating with cardiac specialties outpatient to evaluate candidacy for possible valvular procedure. Goal will be to stabilize patient's on oral medications to the point where she can be discharged and pursue outpatient follow-up for any type of heart valve surgery. Creatinine stable, anticipate will need to tolerate a certain amount of renal dysfunction to minimize her pulmonary symptoms Continue to titrate oxygen as able, BiPAP as needed for rest. Admission and Anticipated Discharge Date Admission Date: August 20, 2025 Subjective Patient feeling little bit better. Has been on and off BiPAP throughout the night. Using it more just for rest than true hypoxia. Has had good urine output. Physical Exam Physical Exam: Constitutional: Alert, nontoxic, significantly less respiratory distress HEENT: Mucous membranes moist. Lungs: Decreased breath sounds, improved Rales CV: S1-S2, regular, systolic murmur Abdomen: Soft, nontender, nondistended Extremities: Minimal edema Neuro: No focal deficits Psych: Cooperative, normal mood Results & Data Results & Data Vital Signs (Past 12 Hours) Vital Signs Temp Pulse Resp BP Pulse Ox O2 Del Method O2 Del Method 08/23/25 10:00 37.9 C H 95 H 29 H 95 Nasal Cannula 08/23/25 10:00 142/76 H 08/23/25 10:00 142/76 H 08/23/25 10:00 142/76 H 08/23/25 10:00 142/76 H 08/23/25 10:00 142/76 H 08/23/25 09:30 124/73 08/23/25 09:30 124/73 08/23/25 09:30 124/73 08/23/25 09:30 124/73 08/23/25 09:30 124/73 08/23/25 09:30 124/73 08/23/25 09:30 124/73 08/23/25 09:30 124/73 08/23/25 09:30 124/73 08/23/25 09:30 37.9 C H 88 21 97 08/23/25 09:14 85 24 97 08/23/25 09:00 37.9 C H 85 26 H 97 08/23/25 09:00 128/64 08/23/25 09:00 128/64 08/23/25 09:00 128/64 08/23/25 09:00 128/64 08/23/25 09:00 128/64 08/23/25 08:31 129/86 08/23/25 08:31 129/86 08/23/25 08:31 129/86 08/23/25 08:31 129/86 08/23/25 08:31 129/86 08/23/25 08:30 37.8 C H 89 19 99 BiPAP 08/23/25 08:00 160/95 H 08/23/25 08:00 37.9 C H 96 H 19 96 08/23/25 08:00 BiPAP 08/23/25 08:00 BiPAP 08/23/25 08:00 BiPAP 08/23/25 07:30 152/81 H 08/23/25 07:30 38.0 C H 105 H 31 H 95 08/23/25 07:01 133/77 08/23/25 07:00 38.2 C H 91 H 29 H 97 Nasal Cannula 08/23/25 02:00 37.4 C 76 25 H 95 08/23/25 01:30 37.4 C 86 24 97 08/23/25 01:30 126/60 08/23/25 01:01 128/52 L 08/23/25 01:00 37.2 C 79 31 H 97 08/23/25 00:31 120/65 08/23/25 00:30 37.2 C 88 22 96 08/23/25 00:09 83 08/23/25 00:00 37.3 C 85 26 H 94 Nasal Cannula 08/23/25 00:00 133/78 08/22/25 23:30 37.3 C 82 21 98 08/22/25 23:30 118/75 08/22/25 23:00 123/70 08/22/25 23:00 123/70 08/22/25 22:30 37.4 C 79 23 98 08/22/25 22:30 125/60 O2 Flow Rate FiO2 08/23/25 10:00 4 08/23/25 10:00 08/23/25 10:00 08/23/25 10:00 08/23/25 10:00 08/23/25 10:00 08/23/25 09:30 08/23/25 09:30 08/23/25 09:30 08/23/25 09:30 08/23/25 09:30 08/23/25 09:30 08/23/25 09:30 08/23/25 09:30 08/23/25 09:30 08/23/25 09:30 08/23/25 09:14 40 08/23/25 09:00 08/23/25 09:00 08/23/25 09:00 08/23/25 09:00 08/23/25 09:00 08/23/25 09:00 08/23/25 08:31 08/23/25 08:31 08/23/25 08:31 08/23/25 08:31 08/23/25 08:31 08/23/25 08:30 40 08/23/25 08:00 08/23/25 08:00 08/23/25 08:00 40 08/23/25 08:00 08/23/25 08:00 08/23/25 07:30 08/23/25 07:30 08/23/25 07:01 08/23/25 07:00 6 08/23/25 02:00 08/23/25 01:30 08/23/25 01:30 08/23/25 01:01 08/23/25 01:00 08/23/25 00:31 08/23/25 00:30 08/23/25 00:09 08/23/25 00:00 6 08/23/25 00:00 08/22/25 23:30 08/22/25 23:30 08/22/25 23:00 08/22/25 23:00 08/22/25 22:30 08/22/25 22:30 Diagnostic Findings Reviewed imaging, laboratory and diagnostic studies. Pertinent findings as bel ow. WBCs 9.7, improved Hemoglobin 10.1 Potassium 3.3 Creatinine 1.2, improved Pro-Archie 2.7 Blood and respiratory cultures no growth to date Personally reviewed chest x-ray, fluffy infiltrates seems to be improved when compared to yesterday. Costophrenic angles with some blunting suspect small effusions
[2025-08-23] MEDS: ADVANCED PROBIOTIC 625 MG CAPSULE PO SCH (20:26)
[2025-08-24 04:51] LABS: Hematocrit (blood only) 31.7 % (37.0-47.0); Hemoglobin 10.1 g/dL (12.0-16.0); Immature Granulocytes # (auto) 0.03 K/uL (0.01-0.20); Immature Granulocytes % (auto) 0.4 %; Mean Corpuscular Hemoglobin 30.5 pg (25.0-34.0); Mean Corpuscular Volume 95.8 fL (80.0-100.0); Platelet Count 213 K/uL (130-400); RDW Standard Deviation 49.9 fL (36.4-46.3); Red Blood Count 3.31 M/uL (4.20-5.40); White Blood Count 7.55 K/ul (4.8-10.8)
[2025-08-24 05:05] LABS: Anion Gap 10.0 (3-11); Blood Urea Nitrogen 34.0 mg/dl (6-23); Calcium 8.8 mg/dl (8.6-10.3); Carbon Dioxide 22.0 mmol/L (21-32); Chloride 109.0 mmol/L (98-107); Creatinine Clr Calc Pharmacy 36.4 ml/min; Glucose 103.0 mg/dl (70-99(Fasting)); Magnesium 2.2 mg/dl (1.7-2.4); Potassium 3.8 mmol/L (3.5-5.1); Sodium 141.0 mmol/L (136-145)
[2025-08-24] MEDS: POTASSIUM CHLORIDE CRTAB 20 MEQ TABCR PO SCH (06:24)
--- NOTE | 2025-08-24 10:16 | Cardiology Progress Note ---
<Statement entered by Erin Beltre, - 08/24/25 14:57> I have reviewed the advanced practitioner's documentation and agree with the plan of care. I accept the responsibility for the associated risk. pt seen in cardiology follow up due to acute on chronic heart failure with preserved EF-NYHA Class III-IV due to marked valvular pathology (MR,MS, AI, ) she is responding to IV diuretic but is still volume overloaded; would continue with current dosing for today continue other cardiac medications will continue to follow with you I spent a total of 30 minutes coordinating, documenting, and providing care for this patient excluding time spent in the performance of separately billed services or time spent by another provider/QHP. Date of Service August 24, 2025 Assessment & Plan (1) Mitral regurgitation and mitral stenosis: (2) Aortic stenosis, moderate: (3) Heart failure due to valvular disease: (4) Acute exacerbation of CHF (congestive heart failure): Plan -HR and BP currently well controlled -renal function stable -intermittent fevers; leukocytosis has improved; on ABX treatment -continue apixaban, rosuvastatin, amlodipine, toprol, losartan and furosemide -symptomatically better, will continue IV diuresis Case discussed with Dr. Beltre Please see attestation for additional recommendations. DELLA Uribe Department of Cardiology, [facility] This chart was completed in part utilizing Speech Voice Recognition Software. Grammatical errors, random word insertions, pronoun errors, and incomplete sentences are an occasional consequence of this system due to software limitations, ambient noise, and hardware issues. Any formal questions or concerns about the content, text, or information contained within the body of this dictation should be directly addressed to the provider for clarification. Admission and Anticipated Discharge Date Admission Date: August 20, 2025 Subjective 84 year old female seen in cardiology follow up due to acute on chronic CHF due to mixed valvular disease. Slowly improving and requiring less BiPAP support. No acute events overnight. Review of Systems Review of Systems: All systems reviewed & are unremarkable except as noted in HPI & below Physical Exam Constitutional: WD/WN, vitals as above + thin and + frail appearing Eyes: PERRL, conjunctivae normal, anicteric sclerae Neck: trachea midline, no thyromegaly Respiratory: no labored breathing and no cough Auscultation: + diminished lung sounds Cardiovascular: Rate/Rhythm: + irregularly irregular Heart Sounds: + murmur Vessels: no JVD Extremities: normal capillary refill; no edema Gastrointestinal (Abdomen): normal bowel sounds, soft, nontender, no hepatosplenomegaly Skin: no rashes, warm and dry Psychiatric: A+Ox3, euthymic affect Results & Data Vital Signs (Past 12 Hours) Vital Signs Temp Pulse Resp BP Pulse Ox O2 Del Method O2 Flow Rate 08/24/25 08:00 37.2 C 89 21 133/68 93 Nasal Cannula 2 08/24/25 07:00 Nasal Cannula 4 08/24/25 07:00 37.1 C 89 27 H 137/67 97 Nasal Cannula 4 08/24/25 06:09 112 H 20 94 Nasal Cannula 4 08/24/25 05:00 133/70 08/24/25 05:00 37.1 C 81 27 H 96 08/24/25 04:01 141/60 H 08/24/25 04:00 37.1 C 88 29 H 96 08/24/25 03:00 37.1 C 89 29 H 93 08/24/25 03:00 127/78 08/24/25 02:00 37.1 C 85 32 H 93 08/24/25 02:00 110/58 L 08/24/25 01:00 116/55 L 08/24/25 01:00 37.5 C 85 30 H 91 08/24/25 00:00 134/67 08/24/25 00:00 37.8 C H 83 32 H 86 L 08/23/25 23:00 132/57 L 08/23/25 23:00 132/57 L 08/23/25 23:00 37.9 C H 99 H 22 96 Laboratory Results CBC 08/24/25 Range/Units 04:21 WBC 7.55 (4.8-10.8) K/ul RBC 3.31 L (4.20-5.40) M/uL Hgb 10.1 L (12.0-16.0) g/dL Hct 31.7 L (37.0-47.0) % Plt Count 213 (130-400) K/uL Neut # (Auto) 5.37 (1.40-6.50) K/uL Lymph # (Auto) 1.01 L (1.20-3.40) K/uL [place] # (Auto) 0.64 H (0.11-0.59) K/uL Eos # (Auto) 0.46 (0.00-0.50) K/uL Baso # (Auto) 0.04 (0.00-0.20) K/uL Comprehensive Metabolic Panel 08/24/25 Range/Units 04:21 Sodium 141 (136-145) mmol/L Potassium 3.8 (3.5-5.1) mmol/L Chloride 109 H (98-107) mmol/L Carbon Dioxide 22 (21-32) mmol/L BUN 34 H (6-23) mg/dl Creatinine 1.23 H (0.6-1.2) mg/dl Glucose 103 H (70-99(Fasting)) mg/dl Calcium 8.8 (8.6-10.3) mg/dl Intake and Output 08/23/25 08/24/25 08/24/25 22:59 06:59 14:59 Intake Total 240 / 1270.6 550 / 550 Output Total 610 / 1445 435 / 1445 170 / 170 Balance -370 / -174.4 -435 / -174.4 380 / 380 Intake: Oral 240 / 1220 550 / 550 Output: Urine Amount (Catheter) 610 / 1445 435 / 1445 170 / 170 Ayala/Indwelling 610 / 1445 435 / 1445 170 / 170 Other: Weight 88.1 kg Diagnostic Findings Laboratory Results WBC 7.55 K/ul (4.8-10.8) 08/24/25 04:21 RBC 3.31 M/uL (4.20-5.40) L 08/24/25 04:21 Hgb 10.1 g/dL (12.0-16.0) L 08/24/25 04:21 POC Hgb 15.0 g/dl (12.0-16.0) 08/20/25 17:23 Hct 31.7 % (37.0-47.0) L 08/24/25 04:21 POC Hct 44 % (37-47) 08/20/25 17:23 MCV 95.8 fL (80.0-100.0) 08/24/25 04:21 MCH 30.5 pg (25.0-34.0) 08/24/25 04:21 MCHC 31.9 g/dL (32.0-36.0) L 08/24/25 04:21 RDW Std Deviation 49.9 fL (36.4-46.3) H 08/24/25 04:21 RDW Coeff of Rosy 14.2 % (11.5-14.5) 08/24/25 04:21 Plt Count 213 K/uL (130-400) 08/24/25 04:21 MPV 9.6 fL (9.4-12.4) 08/24/25 04:21 Immature Gran % (Auto) 0.4 % 08/24/25 04:21 Neut % (Auto) 71.1 % 08/24/25 04:21 Lymph % (Auto) 13.4 % 08/24/25 04:21 [place] % (Auto) 8.5 % 08/24/25 04:21 Eos % (Auto) 6.1 % 08/24/25 04:21 Baso % (Auto) 0.5 % 08/24/25 04:21 Neut # (Auto) 5.37 K/uL (1.40-6.50) 08/24/25 04:21 Lymph # (Auto) 1.01 K/uL (1.20-3.40) L 08/24/25 04:21 [place] # (Auto) 0.64 K/uL (0.11-0.59) H 08/24/25 04:21 Eos # (Auto) 0.46 K/uL (0.00-0.50) 08/24/25 04:21 Baso # (Auto) 0.04 K/uL (0.00-0.20) 08/24/25 04:21 Immature Gran # (Auto) 0.03 K/uL (0.01-0.20) 08/24/25 04:21 VBG pH 7.30 (7.36-7.41) L 08/20/25 17:20 VBG pCO2 47 mmHg (38-50) 08/20/25 17:20 VBG pO2 47 mmHg 08/20/25 17:20 VBG HCO3 23 mmol/L 08/20/25 17:20 VBG O2 Saturation 73.3 % 08/20/25 17:20 VBG Base Excess -3.6 mEq/L 08/20/25 17:20 POC Sodium 143 mmol/L (135-144) 08/20/25 17:23 Sodium 141 mmol/L (136-145) 08/24/25 04:21 POC Potassium 3.3 mmol/L (3.3-5.0) 08/20/25 17:23 Potassium 3.8 mmol/L (3.5-5.1) 08/24/25 04:21 POC Chloride 105 mmol/L (101-112) 08/20/25 17:23 Chloride 109 mmol/L (98-107) H 08/24/25 04:21 Carbon Dioxide 22 mmol/L (21-32) 08/24/25 04:21 POC Total CO2 23 mmol/L (24-31) L 08/20/25 17:23 Anion Gap 10 (3-11) 08/24/25 04:21 POC Anion Gap 20.0 mmol/L (16-25) 08/20/25 17:23 POC BUN 28 mg/dl (7-18) H 08/20/25 17:23 BUN 34 mg/dl (6-23) H 08/24/25 04:21 Creatinine 1.23 mg/dl (0.6-1.2) H 08/24/25 04:21 POC Creatinine 1.4 mg/dl (0.6-1.3) H 08/20/25 17:23 Est Cr Clr Drug Dosing 36.4 ml/min 08/24/25 04:21 eGFR 43.88 08/24/25 04:21 BUN/Creatinine Ratio 27.6 (10-20) H 08/24/25 04:21 Glucose 103 mg/dl (70-99(Fasting)) H 08/24/25 04:21 POC Glucose 105 mg/dl (70-99) H 08/24/25 07:14 POC Glucose (other) 168 mg/dl (70-99) H 08/20/25 17:23 Estimat Average Glucose 120 mg/dl 08/20/25 17:20 Hemoglobin A1c 5.8 % (4.5-5.6) H 08/20/25 17:20 Lactate 1.7 mmol/L (0.4-2.0) 08/20/25 18:57 Calcium 8.8 mg/dl (8.6-10.3) 08/24/25 04:21 POC Ioniz Calcium Emeli 1.22 mmol/l (1.12-1.32) 08/20/25 17:23 Phosphorus 3.2 mg/dl (2.5-4.9) 08/24/25 04:21 Magnesium 2.2 mg/dl (1.7-2.4) 08/24/25 04:21 Total Bilirubin 1.4 mg/dl (0.2-1.0) H 08/20/25 17:20 AST 41 U/L (13-39) H 08/20/25 17:20 ALT 25 U/L (7-52) 08/20/25 17:20 Alkaline Phosphatase 105 U/L (34-104) H 08/20/25 17:20 Troponin I High Sens 242.4 pg/ml (0-14) H* D 08/21/25 04:34 B-Natriuretic Peptide 771 pg/ml (0-100) H 08/20/25 17:20 Total Protein 8.6 gm/dl (6.0-8.3) H 08/20/25 17:20 Albumin 4.4 gm/dl (3.4-5.0) 08/20/25 17:20 Globulin 4.2 gm/dl (2.5-4.0) H 08/20/25 17:20 Albumin/Globulin Ratio 1.0 (0.9-2) 08/20/25 17:20 Triglycerides 76 mg/dl (0-150) 08/20/25 21:21 Cholesterol 114 mg/dl (0-200) 08/20/25 21:21 LDL Cholesterol, Calc 52 mg/dl 08/20/25 21:21 VLDL Cholesterol, Calc 15 mg/dl (0-30) 08/20/25 21:21 HDL Cholesterol 47 mg/dl 08/20/25 21:21 Cholesterol/HDL Ratio 2.4 (0-5) 08/20/25 21:21 Lipase 17 U/L (11-82) 08/20/25 17:20 Procalcitonin 2.70 ng/ml (0-0.5) H 08/23/25 04:36 TSH 5.873 uIu/ml (0.300-4.500) H 08/20/25 21:21 Free T4 1.66 ng/dl (0.61-1.60) H 08/20/25 21:21 Urine Color Yellow 08/21/25 10:35 Urine Appearance Clear (Clear) 08/21/25 10:35 Urine pH 6.5 (4.5-7.5) 08/21/25 10:35 Ur Specific [place] 1.008 (1.000-1.030) 08/21/25 10:35 Urine Protein Negative (Negative) 08/21/25 10:35 Urine Glucose (UA) Negative (Negative) 08/21/25 10:35 Urine Ketones Negative (Negative) 08/21/25 10:35 Urine Blood 1+ (Negative) H 08/21/25 10:35 Urine Nitrite Negative (Negative) 08/21/25 10:35 Urine Bilirubin Negative (Negative) 08/21/25 10:35 Urine Urobilinogen Negative (Negative) 08/21/25 10:35 Ur Leukocyte Esterase Trace (Negative) H 08/21/25 10:35 Urine WBC (Auto) 6-10 /hpf (0-5) H 08/21/25 10:35 Urine RBC (Auto) 6-10 /hpf (0-2) H 08/21/25 10:35 U Hyaline Cast (Auto) 0-2 /lpf (0-2) 08/21/25 10:35 U Epithel Cells (Auto) 0-2 /hpf (0-2) 08/21/25 10:35 Urine Bacteria (Auto) None Seen (None Seen) 08/21/25 10:35 Urine Comment 08/21/25 10:35 Nasal Screen MRSA (PCR) Negative (Negative) 08/20/25 Unknown Adenovirus (PCR) Not Detected (NotDetected) 08/20/25 21:00 B. pertussis DNA (PCR) Not Detected (NotDetected) 08/20/25 21:00 B.parapertussis DNA PCR Not Detected (NotDetected) 08/20/25 21:00 C. pneumoniae DNA (PCR) Not Detected (NotDetected) 08/20/25 21:00 Coronavirus OC43 (PCR) Not Detected (NotDetected) 08/20/25 21:00 Coronavirus HKU1 (PCR) Not Detected (NotDetected) 08/20/25 21:00 Coronavirus 229E (PCR) Not Detected (NotDetected) 08/20/25 21:00 SARS-CoV-2 (PCR) Not Detected (NotDetected) 08/20/25 21:00 Coronavirus NL63 (PCR) Not Detected (NotDetected) 08/20/25 21:00 Human Metapneumovir PCR Not Detected (NotDetected) 08/20/25 21:00 Influenza Type A (PCR) Not Detected (NotDetected) 08/20/25 21:00 Influenza Type B (PCR) Not Detected (NotDetected) 08/20/25 21:00 Urine Legionella Ag SEE NOTE 08/21/25 10:35 M. pneumoniae (PCR) Not Detected (NotDetected) 08/20/25 21:00 Parainfluenza 1 (PCR) Not Detected (NotDetected) 08/20/25 21:00 Parainfluenza 2 (PCR) Not Detected (NotDetected) 08/20/25 21:00 Parainfluenza 3 (PCR) Not Detected (NotDetected) 08/20/25 21:00 Parainfluenza 4 (PCR) Not Detected (NotDetected) 08/20/25 21:00 RSV (PCR) Not Detected (NotDetected) 08/20/25 21:00 Entero/Rhino (PCR) Not Detected (NotDetected) 08/20/25 21:00 Blood Type A Positive 08/21/25 04:34 Antibody Screen NEGATIVE 08/21/25 04:34 Impressions Chest X-Ray 08/23/25 05:15 EXAM: XR chest 1V portable CLINICAL HISTORY: Eval lung martinez- pulm edema vs. infective TECHNIQUE: An X-ray image of the chest is obtained in AP projection. COMPARISON: 08/22/2025 CR. FINDINGS: Pulmonary Parenchyma: Almost no time interval changes of the diffuse confluent airspace opacification are noted involving both lungs and is currently more apparent along the upper lung zones, with prominent bronchovascular markings still noted Blunting of right costophrenic angle, probably a small volume pleural effusion and pleural thickening are present. The left costophrenic angle is now seen as blunted, as well as suggestive of a pleural process No evidence of pneumothorax Heart and Mediastinum: Cardiomegaly is seen. No mediastinal widening or masses are identified. No hilar or mediastinal lymphadenopathy is present. Bony Thorax: The bony thorax appears intact, without fractures or deformities. Sternotomy sutures are in situ. Multiple metallic clips are identified in the left axilla, mediastinum, and right neck region. Soft Tissues: The soft tissues overlying the chest wall are unremarkable. EKG Chest leads are noted. IMPRESSION: 1. No evidence of pneumothorax 2. Redemonstration of the upper zone predominant pneumonic consolidations in both lungs, appearing slightly interval regressive in the right lung and interval progressive in the left lung since prior of 08/22/2025 3. Still noted, Blunting of the right costophrenic angle, with possible pleural effusion and pleural thickening, is present. 4. The left costophrenic angle is now seen as blunted, as well as suggestive of a pleural process. Electronically signed by Jatinder Hannah 08-23-2025 08:35 AM PG Care Time/CCT Total # of Minutes Spent Total Time Spent with Patient: Total time spent is greater than 50% in coordination of care (as documented) at patient's floor/unit and/or counseling patient: C[place] [address] SUB INP/OBS CARE 3/50MIN Patient Type Established Medical Decision Making Moderate Complexity Diagnoses Mitral regurgitation and mitral stenosis I05.2 Aortic stenosis, moderate I35.0 Heart failure due to valvular disease I50.9; I38 Acute exacerbation of CHF (congestive heart failure) I50.9 Heart failure type: unspecified (4) Acute exacerbation of CHF (congestive heart failure) Heart failure type: unspecified Qualified Code(s): I50.9 - Heart failure, unspecified
--- NOTE | 2025-08-24 12:07 | Hospitalist Progress Note ---
Date of Service August 24, 2025 Assessment & Plan (1) Acute hypoxic respiratory failure: (2) Acute on chronic heart failure with mildly reduced ejection fraction (HFmrEF): (3) Hypertensive urgency: (4) Demand ischemia of myocardium: (5) CKD (chronic kidney disease), stage III: (6) Hypothyroid: (7) Prediabetes: (8) Heart failure due to valvular disease: (9) Pulmonary hypertension: (10) Atrial fibrillation with rapid ventricular response: (11) Aortic stenosis, moderate: (12) Mitral regurgitation and mitral stenosis: (13) Pneumonia: Plan Patient 84-year-old female with flash pulmonary edema due to hypertension, A-fib with RVR and valvular disease. Respiratory failure is improving as she is being diuresed. Also is having fevers, they seem to be improving and WBCs have responded and improved with antibiotic treatment Continue IV diuresis Patient only occasionally needing some BiPAP for her symptoms, continue to titrate oxygen down as able. Have been able to titrate from 6 to 4 L her last 24 hours Continue to monitor electrolytes and renal function Continue antibiotics for presumed bacterial pneumonia Patient's heart rate still slightly elevated, will add metoprolol succinate dose in the morning in addition to her evening dose Encouraged activity Updated patient's daughter via phone Admission and Anticipated Discharge Date Admission Date: August 20, 2025 Subjective Patient steadily feeling better. Only needed BiPAP for an hour or so overnight this was purely for her subjective sensation of shortness of breath. Feeling better today. Physical Exam Physical Exam: Constitutional: Alert, nontoxic, significantly decreased respiratory distress HEENT: Mucous membranes moist. Lungs: Decreased breath sounds, Rales and crackles improving CV: S1-S2, irregular, systolic murmur Abdomen: Soft, nontender, nondistended Extremities: Improved edema Neuro: No focal deficits Psych: Cooperative, normal mood Results & Data Results & Data Vital Signs (Past 12 Hours) Vital Signs Temp Pulse Resp BP Pulse Ox O2 Del Method O2 Flow Rate 08/24/25 10:00 37.8 C H 97 H 26 H 130/78 91 Nasal Cannula 2 08/24/25 09:00 37.4 C 102 H 25 H 141/77 H 93 Nasal Cannula 2 08/24/25 08:00 37.2 C 89 21 133/68 93 Nasal Cannula 2 08/24/25 07:00 Nasal Cannula 4 08/24/25 07:00 37.1 C 89 27 H 137/67 97 Nasal Cannula 4 08/24/25 06:09 112 H 20 94 Nasal Cannula 4 08/24/25 05:00 133/70 08/24/25 05:00 37.1 C 81 27 H 96 08/24/25 04:01 141/60 H 08/24/25 04:00 37.1 C 88 29 H 96 08/24/25 03:00 37.1 C 89 29 H 93 08/24/25 03:00 127/78 08/24/25 02:00 37.1 C 85 32 H 93 08/24/25 02:00 110/58 L 08/24/25 01:00 116/55 L 08/24/25 01:00 37.5 C 85 30 H 91 Diagnostic Findings Reviewed imaging, laboratory and diagnostic studies. Pertinent findings as below. CBC stable Electrolytes stable Creatinine 1.23 Intake and output reviewed, Overall negative, weight decreasing
[2025-08-24] MEDS: METOPROLOL SUCC 25MG EXT REL TAB PO SCH (13:07)
[2025-08-25] MEDS: MELATONIN 3 MG TAB PO PRN (00:57)
[2025-08-25 07:50] LABS: Anion Gap 11.0 (3-11); Blood Urea Nitrogen 31.0 mg/dl (6-23); Calcium 9.3 mg/dl (8.6-10.3); Carbon Dioxide 23.0 mmol/L (21-32); Chloride 108.0 mmol/L (98-107); Creatinine Clr Calc Pharmacy 40.0 ml/min; Glucose 115.0 mg/dl (70-99(Fasting)); Magnesium 2.2 mg/dl (1.7-2.4); Potassium 4.1 mmol/L (3.5-5.1); Sodium 142.0 mmol/L (136-145)
[2025-08-25] MEDS: METOPROLOL SUCC 50MG EXT REL TAB PO SCH (08:49)
--- NOTE | 2025-08-25 10:02 | Hospitalist Progress Note ---
Date of Service August 25, 2025 Assessment & Plan (1) Acute hypoxic respiratory failure: (2) Acute on chronic heart failure with mildly reduced ejection fraction (HFmrEF): (3) Hypertensive urgency: (4) Demand ischemia of myocardium: (5) CKD (chronic kidney disease), stage III: (6) Hypothyroid: (7) Prediabetes: (8) Heart failure due to valvular disease: (9) Pulmonary hypertension: (10) Atrial fibrillation with rapid ventricular response: (11) Aortic stenosis, moderate: (12) Mitral regurgitation and mitral stenosis: (13) Pneumonia: Plan Patient 84-year-old female with acute/flash pulmonary edema in the setting of uncontrolled hypertension, atrial fibrillation with rapid ventricular response, pneumonia and valvular heart failure. Patient is showing steady improvement, complete course of antibiotics for presumed pneumonia Transition to oral diuretics Continue to try to titrate oxygen to off Remove Ayala Encourage activity, incentive spirometry Patient's blood pressure and heart rate have improved with the addition of twice daily metoprolol. Will discontinue losartan and amlodipine this morning and increase morning metoprolol dose to 50 mg twice daily. This will also relief family concerns and fears of her being on the losartan and her kidney function despite the fact that her kidney function has steadily improved here in the hospital with diuresis. Cardiology will continue to pursue outpatient evaluation of treatment options for her significant valvular dysfunction Continue anticoagulation with apixaban Monitor renal function, electrolytes and CBC in a.m. May need to step oxygen evaluation prior to discharge if unable to titrate off of oxygen. Admission and Anticipated Discharge Date Admission Date: August 20, 2025 Subjective Patient continuing to show steady progress. Definitely feels better this morning than yesterday. Oxygen requirements have decreased. Feels as though her breathing is much easier. Did not require any BiPAP for symptoms control Physical Exam Physical Exam: Constitutional: Alert, no acute distress, nontoxic HEENT: Mucous membranes moist. Lungs: Decreased breath sounds, Rales improving, no wheezes CV: S1-S2, irregular, systolic murmur Abdomen: Soft, nontender, nondistended Extremities: Edema significantly improved Neuro: No focal deficits Psych: Cooperative, normal mood Results & Data Results & Data Vital Signs (Past 12 Hours) Vital Signs Temp Pulse Pulse Resp BP BP Pulse Ox 08/25/25 07:35 80 08/25/25 07:23 08/25/25 07:16 36.6 C 83 18 121/65 93 08/25/25 02:39 37.2 C 90 16 128/74 91 08/24/25 22:36 36.7 C 92 H 16 146/68 H 91 O2 Del Method O2 Flow Rate 08/25/25 07:35 08/25/25 07:23 Nasal Cannula 2 08/25/25 07:16 Nasal Cannula 2 08/25/25 02:39 Nasal Cannula 2 08/24/25 22:36 Nasal Cannula 2 Diagnostic Findings Reviewed imaging, laboratory and diagnostic studies. Pertinent findings as below. Potassium 4.1 Creatinine 1.09 Magnesium 2.2
[2025-08-25] MEDS: FUROSEMIDE 40 MG TAB PO SCH (13:08)
--- NOTE | 2025-08-25 13:23 | Cardiology Progress Note ---
<Statement entered by Erin Beltre, DO - 08/25/25 20:01> I have reviewed the advanced practitioner's documentation and agree with the plan of care. I accept the responsibility for the associated risk. pt seen in cardiology follow up due to acute on chronic heart failure with preserved EF-NYHA Class III-IV due to marked valvular pathology (MR,MS, AI, ) she is responding to IV diuretic but is still volume overloaded; would continue with current dosing for today and then tomorrow can most likely transition to torsemide continue other cardiac medications will continue to follow with you I spent a total of 30 minutes coordinating, documenting, and providing care for this patient excluding time spent in the performance of separately billed services or time spent by another provider/QHP. Date of Service August 25, 2025 Assessment & Plan (1) Mitral regurgitation and mitral stenosis: (2) Aortic stenosis, moderate: (3) Heart failure due to valvular disease: (4) Acute exacerbation of CHF (congestive heart failure): Plan -HR and BP currently well controlled -renal function stable -intermittent fevers; leukocytosis has improved; on ABX treatment -continue apixaban, rosuvastatin, amlodipine, toprol, losartan and furosemide -symptomatically better but would continue IV lasix today -can possibly transition to oral diuretics tomm. Case discussed with Dr. Beltre Please see attestation for additional recommendations. DELLA Uribe Department of Cardiology, [facility] This chart was completed in part utilizing Speech Voice Recognition Software. Grammatical errors, random word insertions, pronoun errors, and incomplete sentences are an occasional consequence of this system due to software limitations, ambient noise, and hardware issues. Any formal questions or concerns about the content, text, or information contained within the body of this dictation should be directly addressed to the provider for clarification. Admission and Anticipated Discharge Date Admission Date: August 20, 2025 Subjective Symptoms continue to improve. No BiPAP use needed overnight. Starting to feel like she is closer to her baseline. Review of Systems Review of Systems: All systems reviewed & are unremarkable except as noted in HPI & below Physical Exam Constitutional: WD/WN, vitals as above + thin and + frail appearing Eyes: PERRL, conjunctivae normal, anicteric sclerae Neck: trachea midline, no thyromegaly Respiratory: no labored breathing and no cough Auscultation: + diminished lung sounds Cardiovascular: Rate/Rhythm: + irregularly irregular Heart Sounds: + murmur Vessels: no JVD Extremities: normal capillary refill; no edema Gastrointestinal (Abdomen): normal bowel sounds, soft, nontender, no hepatosplenomegaly Skin: no rashes, warm and dry Psychiatric: A+Ox3, euthymic affect Results & Data Vital Signs (Past 12 Hours) Vital Signs Temp Pulse Pulse Resp BP BP Pulse Ox 08/25/25 11:38 36.7 C 81 17 123/75 93 08/25/25 08:00 08/25/25 07:35 80 08/25/25 07:23 08/25/25 07:16 36.6 C 83 18 121/65 93 08/25/25 02:39 37.2 C 90 16 128/74 91 O2 Del Method O2 Del Method O2 Flow Rate 08/25/25 11:38 Nasal Cannula 2 08/25/25 08:00 Nasal Cannula 08/25/25 07:35 08/25/25 07:23 Nasal Cannula 2 08/25/25 07:16 Nasal Cannula 2 08/25/25 02:39 Nasal Cannula 2 PG Care Time/CCT Total # of Minutes Spent Total Time Spent with Patient: Total time spent is greater than 50% in coordination of care (as documented) at patient's floor/unit and/or counseling patient: [place] [address] SUB INP/OBS CARE 2/35MIN Patient Type Established Medical Decision Making Moderate Complexity Diagnoses Mitral regurgitation and mitral stenosis I05.2 Aortic stenosis, moderate I35.0 Heart failure due to valvular disease I50.9; I38 Acute exacerbation of CHF (congestive heart failure) I50.9 Heart failure type: unspecified (4) Acute exacerbation of CHF (congestive heart failure) Heart failure type: unspecified Qualified Code(s): I50.9 - Heart failure, unspecified
[2025-08-26 07:12] LABS: Hematocrit (blood only) 32.8 % (37.0-47.0); Hemoglobin 11.0 g/dL (12.0-16.0); Mean Corpuscular Hemoglobin 31.1 pg (25.0-34.0); Mean Corpuscular Volume 92.7 fL (80.0-100.0); Platelet Count 296 K/uL (130-400); RDW Standard Deviation 48.0 fL (36.4-46.3); Red Blood Count 3.54 M/uL (4.20-5.40); White Blood Count 6.85 K/ul (4.8-10.8)
[2025-08-26 07:29] LABS: Anion Gap 11.0 (3-11); Blood Urea Nitrogen 31.0 mg/dl (6-23); Calcium 9.3 mg/dl (8.6-10.3); Carbon Dioxide 22.0 mmol/L (21-32); Chloride 106.0 mmol/L (98-107); Creatinine Clr Calc Pharmacy 35.5 ml/min; Glucose 113.0 mg/dl (70-99(Fasting)); Magnesium 2.1 mg/dl (1.7-2.4); Potassium 3.9 mmol/L (3.5-5.1); Sodium 139.0 mmol/L (136-145)
[2025-08-26] MEDS: FUROSEMIDE 40 MG TAB PO SCH (07:54)
--- NOTE | 2025-08-26 11:10 | Cardiology Progress Note ---
Date of Service August 26, 2025 Assessment & Plan (1) Mitral regurgitation and mitral stenosis: (2) Aortic stenosis, moderate: (3) Heart failure due to valvular disease: (4) Acute exacerbation of CHF (congestive heart failure): Plan on PO diuretics continue apixaban, rosuvastatin, amlodipine, toprol, losartan and furosemide avoid hypovolemia keep patient euvolemic 1.5 L / 24 hr fluid restriction strict I&Os salt restriction counseling correct and f/u electrolytes as OP f/u renal function as OP stable from cardiac standpoint for discharge F/U in cardiology clinic post discharge Admission and Anticipated Discharge Date Admission Date: August 20, 2025 Subjective Patient on exam is sitting in chair in NAD; no c/o cp, sob, palpitations, dizziness, LOC; able to ambulate to the bathroom with no symptoms; no leg swelling Review of Systems Review of Systems: as per hpi Physical Exam Physical Exam: Temp Pulse Resp BP Pulse Ox O2 Del Method O2 Flow Rate 37.9 C H 88 21 124/73 97 BiPAP 6 08/23/25 09:30 08/23/25 09:30 08/23/25 09:30 08/23/25 09:30 08/23/25 09:30 08/23/25 08:30 08/23/25 07:00 FiO2 40 08/23/25 09:14 Constitutional: WD/WN, vitals as above + ill appearing (chronically ill in appearance ), + thin and + frail appearing Eyes: PERRL, conjunctivae normal, anicteric sclerae Neck: trachea midline, no thyromegaly Respiratory: no labored breathing, no cough and no grunting Auscultation: + diminished lung sounds; no crackles and no wheezes Cardiovascular: Rate/Rhythm: + irregularly irregular Heart Sounds: + murmur Vessels: no JVD Extremities: normal capillary refill; no edema Gastrointestinal (Abdomen): normal bowel sounds, soft, nontender, no hepatosplenomegaly Skin: no rashes, warm and dry Neurologic: PERRL, EOMI, accommodation nl, no face palsy, no dysarthria Psychiatric: A+Ox3, euthymic affect Results & Data Vital Signs (Past 12 Hours) Vital Signs Temp Pulse Pulse Resp BP Pulse Ox O2 Del Method 08/26/25 10:45 36.8 C 88 18 128/72 94 Room Air 08/26/25 08:00 84 08/26/25 07:14 36.9 C 92 H 18 118/70 92 Room Air 08/26/25 03:36 36.8 C 81 16 117/60 92 Room Air 08/25/25 23:17 36.9 C 87 16 123/56 L 91 Room Air Laboratory Results Laboratory Results WBC 6.85 K/ul (4.8-10.8) 08/26/25 06:49 RBC 3.54 M/uL (4.20-5.40) L 08/26/25 06:49 Hgb 11.0 g/dL (12.0-16.0) L 08/26/25 06:49 POC Hgb 15.0 g/dl (12.0-16.0) 08/20/25 17:23 Hct 32.8 % (37.0-47.0) L 08/26/25 06:49 POC Hct 44 % (37-47) 08/20/25 17: MCV 92.7 fL (80.0-100.0) 08/26/25 06:49 MCH 31.1 pg (25.0-34.0) 08/26/25 06:49 MCHC 33.5 g/dL (32.0-36.0) 08/26/25 06:49 RDW Std Deviation 48.0 fL (36.4-46.3) H 08/26/25 06:49 RDW Coeff of Rosy 14.1 % (11.5-14.5) 08/26/25 06:49 Plt Count 296 K/uL (130-400) 08/26/25 06:49 MPV 9.2 fL (9.4-12.4) L 08/26/25 06:49 Immature Gran % (Auto) 0.4 % 08/24/25 04:21 Neut % (Auto) 71.1 % 08/24/25 04:21 Lymph % (Auto) 13.4 % 08/24/25 04:21 Jones % (Auto) 8.5 % 08/24/25 04:21 Eos % (Auto) 6.1 % 08/24/25 04:21 Baso % (Auto) 0.5 % 08/24/25 04:21 Neut # (Auto) 5.37 K/uL (1.40-6.50) 08/24/25 04:21 Lymph # (Auto) 1.01 K/uL (1.20-3.40) L 08/24/25 04:21 Jones # (Auto) 0.64 K/uL (0.11-0.59) H 08/24/25 04:21 Eos # (Auto) 0.46 K/uL (0.00-0.50) 08/24/25 04:21 Baso # (Auto) 0.04 K/uL (0.00-0.20) 08/24/25 04:21 Immature Gran # (Auto) 0.03 K/uL (0.01-0.20) 08/24/25 04:21 VBG pH 7.30 (7.36-7.41) L 08/20/25 17:20 VBG pCO2 47 mmHg (38-50) 08/20/25 17:20 VBG pO2 47 mmHg 08/20/25 17:20 VBG HCO3 23 mmol/L 08/20/25 17:20 VBG O2 Saturation 73.3 % 08/20/25 17:20 VBG Base Excess -3.6 mEq/L 08/20/25 17:20 POC Sodium 143 mmol/L (135-144) 08/20/25 17:23 Sodium 139 mmol/L (136-145) 08/26/25 06:49 POC Potassium 3.3 mmol/L (3.3-5.0) 08/20/25 17:23 Potassium 3.9 mmol/L (3.5-5.1) 08/26/25 06:49 POC Chloride 105 mmol/L (101-112) 08/20/25 17:23 Chloride 106 mmol/L (98-107) 08/26/25 06:49 Carbon Dioxide 22 mmol/L (21-32) 08/26/25 06:49 POC Total CO2 23 mmol/L (24-31) L 08/20/25 17:23 Anion Gap 11 (3-11) 08/26/25 06:49 POC Anion Gap 20.0 mmol/L (16-25) 08/20/25 17:23 POC BUN 28 mg/dl (7-18) H 08/20/25 17:23 BUN 31 mg/dl (6-23) H 08/26/25 06:49 Creatinine 1.22 mg/dl (0.6-1.2) H 08/26/25 06:49 POC Creatinine 1.4 mg/dl (0.6-1.3) H 08/20/25 17:23 Est Cr Clr Drug Dosing 35.5 ml/min 08/26/25 06:49 eGFR 44.31 08/26/25 06:49 BUN/Creatinine Ratio 25.4 (10-20) H 08/26/25 06:49 Glucose 113 mg/dl (70-99(Fasting)) H 08/26/25 06:49 POC Glucose 105 mg/dl (70-99) H 08/24/25 07:14 POC Glucose (other) 168 mg/dl (70-99) H 08/20/25 17:23 Estimat Average Glucose 120 mg/dl 08/20/25 17:20 Hemoglobin A1c 5.8 % (4.5-5.6) H 08/20/25 17:20 Lactate 1.7 mmol/L (0.4-2.0) 08/20/25 18:57 Calcium 9.3 mg/dl (8.6-10.3) 08/26/25 06:49 POC Ioniz Calcium Emeli 1.22 mmol/l (1.12-1.32) 08/20/25 17:23 Phosphorus 3.2 mg/dl (2.5-4.9) 08/24/25 04:21 Magnesium 2.1 mg/dl (1.7-2.4) 08/26/25 06:49 Total Bilirubin 1.4 mg/dl (0.2-1.0) H 08/20/25 17:20 AST 41 U/L (13-39) H 08/20/25 17:20 ALT 25 U/L (7-52) 08/20/25 17:20 Alkaline Phosphatase 105 U/L (34-104) H 08/20/25 17:20 Troponin I High Sens 242.4 pg/ml (0-14) H* D 08/21/25 04:34 B-Natriuretic Peptide 771 pg/ml (0-100) H 08/20/25 17:20 Total Protein 8.6 gm/dl (6.0-8.3) H 08/20/25 17:20 Albumin 4.4 gm/dl (3.4-5.0) 08/20/25 17:20 Globulin 4.2 gm/dl (2.5-4.0) H 08/20/25 17:20 Albumin/Globulin Ratio 1.0 (0.9-2) 08/20/25 17:20 Triglycerides 76 mg/dl (0-150) 08/20/25 21:21 Cholesterol 114 mg/dl (0-200) 08/20/25 21:21 LDL Cholesterol, Calc 52 mg/dl 08/20/25 21:21 VLDL Cholesterol, Calc 15 mg/dl (0-30) 08/20/25 21:21 HDL Cholesterol 47 mg/dl 08/20/25 21:21 Cholesterol/HDL Ratio 2.4 (0-5) 08/20/25 21:21 Lipase 17 U/L (11-82) 08/20/25 17:20 Procalcitonin 2.70 ng/ml (0-0.5) H 08/23/25 04:36 TSH 5.873 uIu/ml (0.300-4.500) H 08/20/25 21:21 Free T4 1.66 ng/dl (0.61-1.60) H 08/20/25 21:21 Urine Color Yellow 08/21/25 10:35 Urine Appearance Clear (Clear) 08/21/25 10:35 Urine pH 6.5 (4.5-7.5) 08/21/25 10:35 Ur Specific [place] 1.008 (1.000-1.030) 08/21/25 10:35 Urine Protein Negative (Negative) 08/21/25 10:35 Urine Glucose (UA) Negative (Negative) 08/21/25 10:35 Urine Ketones Negative (Negative) 08/21/25 10:35 Urine Blood 1+ (Negative) H 08/21/25 10:35 Urine Nitrite Negative (Negative) 08/21/25 10:35 Urine Bilirubin Negative (Negative) 08/21/25 10:35 Urine Urobilinogen Negative (Negative) 08/21/25 10:35 Ur Leukocyte Esterase Trace (Negative) H 08/21/25 10:35 Urine WBC (Auto) 6-10 /hpf (0-5) H 08/21/25 10:35 Urine RBC (Auto) 6-10 /hpf (0-2) H 08/21/25 10:35 U Hyaline Cast (Auto) 0-2 /lpf (0-2) 08/21/25 10:35 U Epithel Cells (Auto) 0-2 /hpf (0-2) 08/21/25 10:35 Urine Bacteria (Auto) None Seen (None Seen) 08/21/25 10:35 Urine Comment 08/21/25 10:35 Nasal Screen MRSA (PCR) Negative (Negative) 08/20/25 Unknown Adenovirus (PCR) Not Detected (NotDetected) 08/20/25 21:00 B. pertussis DNA (PCR) Not Detected (NotDetected) 08/20/25 21:00 B.parapertussis DNA PCR Not Detected (NotDetected) 08/20/25 21:00 C. pneumoniae DNA (PCR) Not Detected (NotDetected) 08/20/25 21:00 Coronavirus OC43 (PCR) Not Detected (NotDetected) 08/20/25 21:00 Coronavirus HKU1 (PCR) Not Detected (NotDetected) 08/20/25 21:00 Coronavirus 229E (PCR) Not Detected (NotDetected) 08/20/25 21:00 SARS-CoV-2 (PCR) Not Detected (NotDetected) 08/20/25 21:00 Coronavirus NL63 (PCR) Not Detected (NotDetected) 08/20/25 21:00 Human Metapneumovir PCR Not Detected (NotDetected) 08/20/25 21:00 Influenza Type A (PCR) Not Detected (NotDetected) 08/20/25 21:00 Influenza Type B (PCR) Not Detected (NotDetected) 08/20/25 21:00 Urine Legionella Ag SEE NOTE 08/21/25 10:35 M. pneumoniae (PCR) Not Detected (NotDetected) 08/20/25 21:00 Parainfluenza 1 (PCR) Not Detected (NotDetected) 08/20/25 21:00 Parainfluenza 2 (PCR) Not Detected (NotDetected) 08/20/25 21:00 Parainfluenza 3 (PCR) Not Detected (NotDetected) 08/20/25 21:00 Parainfluenza 4 (PCR) Not Detected (NotDetected) 08/20/25 21:00 RSV (PCR) Not Detected (NotDetected) 08/20/25 21:00 Entero/Rhino (PCR) Not Detected (NotDetected) 08/20/25 21:00 Blood Type A Positive 08/21/25 04:34 Antibody Screen NEGATIVE 08/21/25 04:34 Impressions Chest X-Ray 08/23/25 05:15 EXAM: XR chest 1V portable CLINICAL HISTORY: Eval lung martinez- pulm edema vs. infective TECHNIQUE: An X-ray image of the chest is obtained in AP projection. COMPARISON: 08/22/2025 CR. FINDINGS: Pulmonary Parenchyma: Almost no time interval changes of the diffuse confluent airspace opacification are noted involving both lungs and is currently more apparent along the upper lung zones, with prominent bronchovascular markings still noted Blunting of right costophrenic angle, probably a small volume pleural effusion and pleural thickening are present. The left costophrenic angle is now seen as blunted, as well as suggestive of a pleural process No evidence of pneumothorax Heart and Mediastinum: Cardiomegaly is seen. No mediastinal widening or masses are identified. No hilar or mediastinal lymphadenopathy is present. Bony Thorax: The bony thorax appears intact, without fractures or deformities. Sternotomy sutures are in situ. Multiple metallic clips are identified in the left axilla, mediastinum, and right neck region. Soft Tissues: The soft tissues overlying the chest wall are unremarkable. EKG Chest leads are noted. IMPRESSION: 1. No evidence of pneumothorax 2. Redemonstration of the upper zone predominant pneumonic consolidations in both lungs, appearing slightly interval regressive in the right lung and interval progressive in the left lung since prior of 08/22/2025 3. Still noted, Blunting of the right costophrenic angle, with possible pleural effusion and pleural thickening, is present. 4. The left costophrenic angle is now seen as blunted, as well as suggestive of a pleural process. Electronically signed by Jatinder Hannah 08-23-2025 08:35 AM Diagnostic Findings CBC 08/26/25 Range/Units 06:49 WBC 6.85 (4.8-10.8) K/ul RBC 3.54 L (4.20-5.40) M/uL Hgb 11.0 L (12.0-16.0) g/dL Hct 32.8 L (37.0-47.0) % Plt Count 296 (130-400) K/uL Comprehensive Metabolic Panel 08/26/25 Range/Units 06:49 Sodium 139 (136-145) mmol/L Potassium 3.9 (3.5-5.1) mmol/L Chloride 106 (98-107) mmol/L Carbon Dioxide 22 (21-32) mmol/L BUN 31 H (6-23) mg/dl Creatinine 1.22 H (0.6-1.2) mg/dl Glucose 113 H (70-99(Fasting)) mg/dl Calcium 9.3 (8.6-10.3) mg/dl Intake and Output 08/25/25 08/26/25 08/26/25 22:59 06:59 14:59 Intake Total 420 / 620 150 / 620 Output Total 1300 / 1581 281 / 1581 Balance -880 / -961 -131 / -961 Intake: Oral 420 / 570 150 / 570 Output: Urine 280 / 280 Other 250 / 250 Urine Amount (Catheter) 1050 / 1050 Ayala/Indwelling 1050 / 1050 # Bowel Movements Other: # Unmeasured Voids 1 Weight 83.1 kg Weight Measurement Method Standing Scale Medications Administered Home Medications Medication Instructions Recorded Confirmed Last Taken amlodipine 5 mg tablet 5 mg PO QAM 03/31/22 08/20/25 08/20/25 apixaban 5 mg tablet (Eliquis) 5 mg PO BID 03/31/22 08/20/25 08/20/25 08:00 aspirin 81 mg tablet,delayed 81 mg PO HS 03/31/22 08/20/25 08/19/25 release (Adult Low Dose Aspirin) esomeprazole magnesium 20 mg 20 mg PO QAM 03/31/22 08/20/25 08/20/25 capsule,delayed release (Nexium) losartan 50 mg tablet 50 mg PO BID 03/31/22 08/20/25 08/20/25 08:00 multivitamin 1 tab PO QAM 03/31/22 08/20/25 08/20/25 omega [id number] oil 1,000 mg 1 cap PO BID 03/31/22 08/20/25 08/20/25 08:00 (120 mg-180 mg) capsule (Fish Oil) rosuvastatin 5 mg tablet (Crestor) 5 mg PO HS 03/31/22 08/20/25 08/19/25 alendronate 70 mg tablet (Fosamax) 70 mg PO Q7D 05/10/22 08/20/25 08/17/25 furosemide 20 mg tablet 40 mg PO DAILY 09/30/22 08/20/25 08/20/25 amoxicillin 500 mg capsule 2,000 mg PO DIRECTED PRN 1 HR 08/20/25 08/20/25 Unknown PRIOR TO DENTAL PROCEDURES cefdinir 300 mg capsule 300 mg PO BID 08/20/25 08/20/25 Unknown cranberry extract 500 mg capsule 500 mg PO BID 08/20/25 08/20/25 08/20/25 08:00 (Cranberry Concentrate) estradiol 0.01% (0.1 mg/gram) 1 applic vaginal DIRECTED 08/20/25 08/20/25 Unknown vaginal cream levothyroxine 75 mcg tablet 75 mcg PO DAILYBB 08/20/25 08/20/25 08/20/25 magnesium oxide 400 mg PO HS 08/20/25 08/20/25 08/19/25 metoprolol succinate 50 mg 50 mg PO QPM 08/20/25 08/20/25 08/19/25 tablet,extended release 24 hr mirabegron 50 mg tablet,extended 50 mg PO QAM 08/20/25 08/20/25 08/20/25 release 24 hr (Myrbetriq) polyethylene glycol 3350 17 17 g PO DAILY PRN Constipation 08/20/25 08/20/25 Unknown gram/dose oral powder (Miralax) ropinirole 0.5 mg tablet 0.5 mg PO HS 08/20/25 08/20/25 08/19/25 sulfamethoxazole 800 1 tab PO ONCE 08/20/25 08/20/25 Unknown mg-trimethoprim 160 mg tablet (Bactrim DS) Active Medications Generic Name Dose Route Start Last Admin Trade Name Freq PRN Reason Stop Dose Admin Acetaminophen 650 mg 08/21/25 18:59 08/24/25 14:07 Acetaminophen 325 Mg Tab PO 09/20/25 09:58 650 mg Q6H PRN Administration pain/fever Apixaban 5 mg 08/21/25 09:00 08/26/25 07:55 Apixaban 5 Mg Tablet PO 09/20/25 08:59 5 mg BID ANTONIETTA Administration Docusate Sodium 100 mg 08/22/25 11:15 08/26/25 07:56 Docusate Sodium 100 Mg Cap PO 09/21/25 11:14 Not Given DAILY ANTONIETTA Furosemide 40 mg 08/26/25 14:00 08/26/25 07:54 Furosemide 40 Mg Tab PO 09/25/25 13:59 40 mg [id number] ANTONIETTA Administration Lactobacillus Acidophilus 1,250 mg 08/23/25 19:15 08/26/25 07:54 Advanced Probiotic 625 Mg Capsule PO 09/22/25 19:14 1,250 mg DAILY ANTONIETTA Administration Levothyroxine Sodium 75 mcg 08/21/25 06:30 08/26/25 05:24 Levothyroxine Sodium 75 Mcg Tablet PO 09/20/25 06:29 75 mcg DAILYBB ANTONIETTA Administration Melatonin 3 mg 08/25/25 00:12 08/25/25 00:57 Melatonin 3 Mg Tab PO 09/24/25 00:11 3 mg HS PRN Administration Sleep Metoprolol Succinate 50 mg 08/21/25 21:00 08/25/25 20:20 Metoprolol Succ 50mg Ext Rel Tab PO 09/20/25 20:59 50 mg HS ANTONIETTA Administration Metoprolol Succinate 50 mg 08/25/25 09:00 08/26/25 07:57 Metoprolol Succ 50mg Ext Rel Tab PO 09/24/25 08:59 50 mg QAM ANTONIETTA Administration Pantoprazole Sodium 40 mg 08/21/25 09:00 08/26/25 07:55 Pantoprazole 40 Mg Tab PO 09/20/25 08:59 40 mg QAM ANTONIETTA Administration Ropinirole HCl 0.5 mg 08/21/25 21:00 08/25/25 20:20 Ropinirole Hcl 0.25 Mg Tablet PO 09/20/25 20:59 0.5 mg HS ANTONIETTA Administration Rosuvastatin Calcium 5 mg 08/21/25 21:00 08/25/25 20:20 Rosuvastatin Calcium 5 Mg Tab PO 09/20/25 20:59 5 mg HS ANTONIETTA Administration PG Care Time/CCT Total # of Minutes Spent Total Time Spent with Patient: Total time spent is greater than 50% in coordination of care (as documented) at patient's floor/unit and/or counseling patient: Coding Level of Care Code 90734 SUB INP/OBS CARE MIN Diagnoses Mitral regurgitation and mitral stenosis I05.2 Aortic stenosis, moderate I35.0 Heart failure due to valvular disease I50.9; I38 Acute exacerbation of CHF (congestive heart failure) I50.9 Heart failure type: unspecified (4) Acute exacerbation of CHF (congestive heart failure) Heart failure type: unspecified Qualified Code(s): I50.9 - Heart failure, unspecified
--- NOTE | 2025-08-26 11:56 | Hospitalist Progress Note ---
Date of Service August 26, 2025 Assessment & Plan (1) Acute hypoxic respiratory failure: (2) Acute on chronic heart failure with mildly reduced ejection fraction (HFmrEF): (3) Hypertensive urgency: (4) Demand ischemia of myocardium: (5) CKD (chronic kidney disease), stage III: (6) Hypothyroid: (7) Prediabetes: (8) Heart failure due to valvular disease: (9) Pulmonary hypertension: (10) Atrial fibrillation with rapid ventricular response: (11) Aortic stenosis, moderate: (12) Mitral regurgitation and mitral stenosis: (13) Pneumonia: Plan Patient is significantly improved from admitting conditions Completing course of antibiotics for presumed pneumonia today Transition to oral Lasix Continue twice daily metoprolol Continue chronic anticoagulation for atrial fibrillation Continue to monitor electrolytes and renal function Therapy re-eval Case management to coordinate home care Phone update to patient's daughter Admission and Anticipated Discharge Date Admission Date: August 20, 2025 Subjective Patient continuing to improve. Feels that feet and ankles are a bit more swollen but has been sitting up in chair with legs hanging down much more over the last 24 hours. Breathing is significantly improved, no chest pain. Physical Exam Physical Exam: Constitutional: Alert, no acute distress HEENT: Mucous membranes moist. Lungs: Significantly improved airflow, no wheezes, Rales resolved CV: S1-S2, irregular, systolic murmur Abdomen: Soft, nontender, nondistended Extremities: 2+ edema lower extremity Neuro: No focal deficits Psych: Cooperative, normal mood Results & Data Results & Data Vital Signs (Past 12 Hours) Vital Signs Temp Pulse Pulse Resp BP Pulse Ox O2 Del Method 08/26/25 10:45 36.8 C 88 18 128/72 94 Room Air 08/26/25 09:00 Room Air 08/26/25 08:00 84 08/26/25 07:14 36.9 C 92 H 18 118/70 92 Room Air 08/26/25 03:36 36.8 C 81 16 117/60 92 Room Air Diagnostic Findings Reviewed imaging, laboratory and diagnostic studies. Pertinent findings as below. Hemoglobin 11.0 Electrolytes stable Creatinine 1.22
[2025-08-27 00:02] VITALS: TEMP 98.4
[2025-08-27 03:38] VITALS: RESP 18
[2025-08-27 06:46] LABS: Anion Gap 10.0 (3-11); Blood Urea Nitrogen 30.0 mg/dl (6-23); Calcium 9.5 mg/dl (8.6-10.3); Carbon Dioxide 24.0 mmol/L (21-32); Chloride 107.0 mmol/L (98-107); Creatinine Clr Calc Pharmacy 35.4 ml/min; Glucose 111.0 mg/dl (70-99(Fasting)); Magnesium 2.2 mg/dl (1.7-2.4); Potassium 4.0 mmol/L (3.5-5.1); Sodium 141.0 mmol/L (136-145)
[2025-08-27 07:13] VITALS: PULSE 81; O2SAT 97
--- NOTE | 2025-08-27 11:15 | Discharge Summary ---
Discharge Summary Date of Service August 27, 2025 Principal Dx & Hospital Course #1 = Principal Diagnosis (1) Acute hypoxic respiratory failure: (2) Acute on chronic heart failure with mildly reduced ejection fraction (HFmrEF): (3) Hypertensive urgency: (4) Demand ischemia of myocardium: (5) CKD (chronic kidney disease), stage III: (6) Hypothyroid: (7) Prediabetes: (8) Heart failure due to valvular disease: (9) Pulmonary hypertension: (10) Atrial fibrillation with rapid ventricular response: (11) Aortic stenosis, moderate: (12) Mitral regurgitation and mitral stenosis: (13) Pneumonia: Plan Patient 84-year-old female who presented with acute hypoxic respiratory failure, flash pulmonary edema and severe hypertension. Patient was admitted to the ICU. She was supported with BiPAP as she was diuresed and her blood pressure addressed. Patient responded to diuresis and was able to be slowly weaned off BiPAP. Her respiratory status was extremely sensitive to fluctuations in her blood pressure. As her blood pressure spiked she started to have more pulmonary edema and need to be back on BiPAP. Continue with aggressive IV diuresis. Patient has known significant valvular dysfunction. Cardiology consultation was obtained. They agreed with diuresis and investigated potential options for any valvular interventions that would be arranged outpatient. As above patient's blood pressure became more more controlled and she was diuresed more effectively her BiPAP requirement resolved and her oxygen requirement slowly decreased. She is able to be transitioned out of the ICU. Her blood pressure medications were adjusted. She ultimately was transition to oral diuretics. She was titrated off oxygen. Her activity was increased. Patient also did have some fevers and leukocytosis at time of presentation. Did have some elevated procalcitonin. She was treated as a presumed pneumonia. She completed the course of antibiotics here in the hospital. On the day of discharge vital signs stable. She is on room air. She continued to have some edema in the lower extremities but this is significantly improved. She was tolerating oral diuretics. She is aware that she will need to follow-up with cardiology and see if she is any type of candidate for any type of valvular intervention. She understands she may also need to adjust her diuretics and outpatient follow-up. She will follow-up with cardiology and her PCP. Notes For Next Care Provider Continue to monitor weight and diuretic dosage Follow-up with cardiology to determine if valve intervention candidate Medication Changes From Visit Lasix dose increased Amlodipine and losartan discontinued Metoprolol dose increased Admission HPI Per Admitting Provider 84 yo female with pmhx of HFmidEF (EF 45%), moderate aortic stenosis, moderate mitral valve stenosis, moderate tricuspid stenosis, CAD s/p CABG, paroxysmal atrial fibrillation, hypothyroidism, GERD, CKD stage 3b, osteoarthritis, RLS, hx of breast cancer, bilateral carotid artery stenosis, lumbar spinal stenosis, who presents for SOB after cystoscopy. She has not been admitted to [facility] since 2022 but has many hospitalizations at other institutions for decompensated HF. In the ED, started on nitro drip and paste for hypertensive emergency, given lasix, admitted to medicine for further workup. Patient seen and examined at bedside. Family present as well. Patient dyspnea noted, unable to give much hx. Daughter provided hx. Patient has been feeling slightly more SOB over the past few days, but doing well overall. Able to do most ADLs but limited in walking distance due to dyspnea. Doing well this morning, felt better than past few days. Was anxious about procedure today, cystoscopy for frequent UTIs. No chest pain, nausea, vomiting, diarrhea, other associated symptoms. Has had frequent hospitalizations for decompensated HF over the past year. No current tobacco use, no alcohol use, no drug use, full code per discussion with family. Admission Exam Per Admitting Provider See H&P Discharge Exam Constitutional: Alert, nontoxic, no acute distress HEENT: Mucous membranes moist. Lungs: Clear to auscultation, decreased, no wheezes rales or rhonchi CV: S1-S2, irregular Abdomen: Soft, nontender, nondistended Extremities: 2+ edema lower extremities, significantly improved from admission Neuro: No focal deficits Psych: Cooperative, normal mood Updated Medication List Medication Instructions Recorded Confirmed Type apixaban 5 mg tablet (Eliquis) 5 mg PO BID 03/31/22 08/20/25 History aspirin 81 mg tablet,delayed 81 mg PO HS 03/31/22 08/20/25 History release (Adult Low Dose Aspirin) esomeprazole magnesium 20 mg 20 mg PO QAM 03/31/22 08/20/25 History capsule,delayed release (Nexium) multivitamin 1 tab PO QAM 03/31/22 08/20/25 History omega 5-azb-zzq-fish oil 1,000 mg 1 cap PO BID 03/31/22 08/20/25 History (120 mg-180 mg) capsule (Fish Oil) rosuvastatin 5 mg tablet (Crestor) 5 mg PO HS 03/31/22 08/20/25 History alendronate 70 mg tablet (Fosamax) 70 mg PO Q7D 05/10/22 08/20/25 History amoxicillin 500 mg capsule 2,000 mg PO DIRECTED PRN 1 HR 08/20/25 08/20/25 History PRIOR TO DENTAL PROCEDURES cranberry extract 500 mg capsule 500 mg PO BID 08/20/25 08/20/25 History (Cranberry Concentrate) estradiol 0.01% (0.1 mg/gram) 1 applic vaginal DIRECTED 08/20/25 08/20/25 History vaginal cream levothyroxine 75 mcg tablet 75 mcg PO DAILYBB 08/20/25 08/20/25 History magnesium oxide 400 mg PO HS 08/20/25 08/20/25 History mirabegron 50 mg tablet,extended 50 mg PO QAM 08/20/25 08/20/25 History release 24 hr (Myrbetriq) polyethylene glycol 3350 17 17 g PO DAILY PRN Constipation 08/20/25 08/20/25 History gram/dose oral powder (Miralax) ropinirole 0.5 mg tablet 0.5 mg PO HS 08/20/25 08/20/25 History docusate sodium 100 mg capsule 100 mg PO DAILY #30 caps 08/27/25 Rx furosemide 40 mg tablet 40 mg PO CSF417 30 days #60 tabs 08/27/25 Rx metoprolol succinate 50 mg 50 mg PO BID #60 tabs 08/27/25 Rx tablet,extended release 24 hr pantoprazole 40 mg tablet,delayed 40 mg PO QAM 30 days #30 tabs 08/27/25 Rx release Hospital Stay Data Consultations 08/20/25 17:47 Consult System Support Specialist Stat ED Decision to Admit Stat 08/20/25 19:58 Consult System Support Specialist Routine 08/22/25 08:43 Consult Cardiology Routine Diagnostic Imagining Performed Reviewed imaging, laboratory and diagnostic studies. Pertinent findings as below. WBC 6.8 Hemoglobin 11.0 Platelets of 296 Electrolytes within normal range Creatinine 1.23 Hemoglobin A1c 5.8% TSH 5.8 Blood cultures no growth to date Sputum culture no growth Echocardiogram showed ejection fraction of 55 to 60%, severe mitral regurgitation, Moderate mitral stenosis, moderate tricuspid regurgitation, pulmonary pressure 45 mmHg, moderate aortic stenosis Pending Results Patient Have Any Pending Studies at Discharge: No Discharge Instructions Given to Patient (Per Discharging Provider) Follow-up with valve clinic as coordinated with cardiology Home Health Attestation I certify that this patient is under my care and that I, or a physicians licensed sales assistant working with me, had a face to-face encounter that meets the home health [id number] encounter requirements with this patient. The encounter with the patient was in whole, or in part, for the following medical condition, which is the primary reason for home health care (list medical condition): CHF I certify that, based on my findings, the following services are medically necessary home health services: My clinical findings support the need for the above services because: Home Safety Assessment OT Assess ADL Status and Restore Function w ADLs PT Assessment for Endurance / Balance / Strength PT Eval for Safety and Mobility PT Eval for Safety, Gait Training, Assistive Devices PT Gait and Balance Training, Strengthening and Safety Skilled Nsg Assess Pt Illness, Disease and Sx Monitoring Teach on Disease Management and Interventions Further, I certify that my clinical findings support that this patient is homebound (i.e. absences from home require considerable and taxing effort and are for medical reasons or voodoo services or infrequently or of short duration when for other reasons) because: Transportation Assistance/Unable to Leave Home Unassisted Certification for Home Health Services: Based on the above findings, I certify that this patient is confined to the home and needs intermittent senior living care, physical therapy and/or speech therapy or continues to need occupational therapy. The patient is under my care, and I have initiated the establishment of the plan of care. This patient will be followed by a physician who will periodically review the plan of care. Total Time Total Time Spent Total Time Spent (In Minutes): 38
[2025-08-27 11:42] VITALS: BP 128/74
== END 2025-08-27 11:49 | disposition home health service (06) | DRG 291 ==
LOC: ED 16:52 → 1E 18:13 → SUATTDRO 18:13 → 1E 20:00 → 2S 08-24 14:31